=== PATIENT | male | born 1945 | race Caucasian/White ===

== ENCOUNTER → 2017-05-19 | Day surgery (SDC) | payer OTHER ==
[2017-05-11 09:15] VITALS: BMI 26.0
[~2017-05-19] VITALS: Ht 177.8 cm; Wt 81.8 kg
[~2017-05-19] MED LIST: ASPI325T39 PO; CHOL1000 PO; CYAN500T PO; GLIP-197 PO; IBUP-1050 PO; LIDOCAINE HCL 2% 2 ML VIAL (20MG/ML) ONE; LOSA50TA6 PO; MAGN250T3 PO; METF-384 PO; METO50TA16 PO; METOPROLOL TARTRATE 1 MG/ML VIAL ONE; MULT-506 PO; OYST500T47 PO; POTA99TA PO; PRLSR20 PO; PROPOFOL IV EMULSION 10 MG/ML 20 ML VIAL IV ONE; SIMV40TA2 PO; SODIUM CHLORIDE 0.9% 500ML 500 ML IV ONE; TAMS0.4C38 PO; ZINC1CAP PO; vit c PO
[2017-05-19 10:17] VITALS: Ht 177.8 cm; Wt 81.8 kg
--- NOTE | 2017-05-19 10:41 | Endo History and Physical ---
History & Physical Date of Service: May 19, 2017. Chief Complaint: Weight loss, diarrhea Referring Physician: History of Present Illness Weight loss, diarrhea Past Surgical History Hx Cardiac Surgery: Yes (HEART CATH X2, STENTS X1 OR 2(?)) Hx Internal Defibrillator: No Hx Pacemaker: No Hx Abdominal Surgery: No Hx of Implantable Prosthesis: No Hx Post-Op Nausea and Vomiting: No Hx Cancer Surgery: No Hx Thoracic Surgery: No Hx Orthopedic: Yes (LT KNEE SURGERY) Hx Urinary Tract Surgery: Yes (PROSTATE BIOPSIES) Family History None Social History Smoking Status: Current Every Day Smoker Hx Substance Use: No Hx Alcohol Use: Yes (QUIT 15 YEARS AGO) Allergies Coded Allergies: No Known Allergies (Verified , 05/19/17) Current Medications Reported Home Medications Medications Dose Route/Sig Max Daily Dose Days Date Category [vit c] 250 PO 5XWK 05/19/17 Reported Zinc Sulfate 220 Mg Cap 220 Mg PO 2XWK 05/11/17 Reported Potassium 99 Mg Tab 1 Tab PO 2XWK 05/11/17 Reported Vitamin B-12 (Cyanocobalamin) 500 Mcg Tab 500 Mcg PO 2XWK 05/11/17 Reported Calcium (Oyster Shell) 500 Mg Tab 1 Tab PO 2XWK 05/11/17 Reported Advil (Ibuprofen) 200 Mg Tab 400-600 Mg PO Q6H PRN 05/11/17 Reported Magnesium 250 mg (Magnesium) 1 Tab Tab 1 Tab PO QAM 05/11/17 Reported Multivitamin (Multivitamins) Tab 1 Tab PO QAM 05/11/17 Reported Zocor (Simvastatin) 40 Mg Tab 0.5 Tab PO HS 05/11/17 Reported Flomax (Tamsulosin Hcl) 0.4 Mg Cap 0.4 Mg PO QAM 05/11/17 Reported Glipizide Er (Glipizide) 5 Mg Tab 0.5 Tab PO QPM 05/11/17 Reported Prilosec (Omeprazole) 20 Mg Capcr 20 Mg PO QPM 05/11/17 Reported Vitamin D3 (Cholecalciferol) 1,000 Unit Tab 1 Tab PO QAM 05/11/17 Reported Aspirin Ec (Aspirin) 325 Mg Tab 325 Mg PO HS 05/11/17 Reported Lopressor (Metoprolol Tartrate) 50 Mg Tab 50 Mg PO BID 05/11/17 Reported Glucophage (Metformin Hcl) 1,000 Mg Tab 1,000 Mg PO BID 05/11/17 Reported Cozaar (Losartan Potassium) 50 Mg Tab 50 Mg PO QAM 05/11/17 Reported Vital Signs Weight (Kilograms): 81.82 Height (Feet): 5 Height (Inches): 10 Physical Exam General Appearance: no apparent distress Respiratory/Chest: Respiratory effort: no dyspnea Cardiovascular: Apical Impulse: not displaced Abdomen: Bowel Sounds: normal Assessment and Plan Diarrhea, weight loss - EGD/cscopy
[2017-05-19 11:55] VITALS: BP 112/93; PULSE 61; O2SAT 95
--- NOTE | 2017-05-19 11:55 | GI REPORT ---
Procedure Date: 05/19/2017 10:55 AM Procedure: Upper GI endoscopy Indications: Weight loss Medicines: See the Anesthesia note for documentation of the administered medications Complications: No immediate complications. Estimated Blood Loss: Estimated blood loss: none. Procedure: Pre-Anesthesia Assessment: - ASA Grade Assessment: III - A patient with severe systemic disease. After obtaining informed consent, the endoscope was passed under direct vision. Throughout the procedure, the patient's blood pressure, pulse, and oxygen saturations were monitored continuously. The scope was introduced through the mouth, and advanced to the second part of duodenum. The upper GI endoscopy was accomplished without difficulty. The patient tolerated the procedure well. Findings: Tortuous esophagus with mildly irregular Z ilne. The GE junction was at 40 cm. There was mild edema of the mucosa of the body and cardia of the stomach. In the correct context, the appearance may be consistent with portal gastropathy. There were a few red spots in the antrum and in the duodenal bulb. 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 There was mild scalloping of the duodenal mucosa. Biopsies were taken with a cold forceps in the entire examined stomach and in the entire duodenum for histology. 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 Recommendation: - Await pathology results. - Discharge patient to home. David Reyes M.D. David Reyes MD 05/19/2017 11:55:09 AM This report has been signed electronically. Note Initiated On: 05/19/2017 10:55 AM I attest to the content of the Intraoperative Record and orders documented therein, exceptions below
--- NOTE | 2017-05-19 12:01 | GI REPORT ---
Procedure Date: 05/19/2017 10:54 AM Procedure: Colonoscopy Indications: Clinically significant diarrhea of unexplained origin, Weight loss Medicines: See the Anesthesia note for documentation of the administered medications Complications: No immediate complications. Estimated Blood Loss: Estimated blood loss: none. Procedure: Pre-Anesthesia Assessment: - ASA Grade Assessment: III - A patient with severe systemic disease. After I obtained informed consent, the scope was passed under direct vision. Throughout the procedure, the patient's blood pressure, pulse, and oxygen saturations were monitored continuously. The scope was introduced through the anus and advanced to the terminal ileum. The colonoscopy was performed without difficulty. The patient tolerated the procedure well. The quality of the bowel preparation was good. Findings: The perianal and digital rectal examinations were normal. Multiple small and large-mouthed diverticula were found in the entire colon. A 1 mm polyp was found in the ascending colon. The polyp was sessile. The polyp was removed with a cold biopsy forceps. Resection and retrieval were complete. A 5 mm polyp was found in the ascending colon. The polyp was sessile. The polyp was removed with a cold snare. Resection and retrieval were complete. Hemorrhoids on retroflexion. The exam was otherwise normal throughout the examined colon. Biopsies for histology were taken with a cold forceps from the entire colon for evaluation of microscopic colitis. Impression: - Diverticulosis in the entire examined colon. - One 1 mm polyp in the ascending colon, removed with a cold biopsy forceps. Resected and retrieved. - One 5 mm polyp in the ascending colon, removed with a cold snare. Resected and retrieved. - Biopsies were taken with a cold forceps from the entire colon for evaluation of microscopic colitis. Recommendation: - Discharge patient to home. David Reyes M.D. David Reyes MD 05/19/2017 12:00:56 PM This report has been signed electronically. Note Initiated On: 05/19/2017 10:54 AM I attest to the content of the Intraoperative Record and orders documented therein, exceptions below
--- NOTE | 2017-05-19 12:02 | Anesthesiology Progress Note ---
Anesthesia Post Op Note Date & Time May 19, 2017 at 12:02 Vital Signs Pain Intensity: 0 Vital Signs Past 12 Hours Date Time Temp Pulse Resp B/P (MAP) Pulse Ox O2 Delivery O2 Flow Rate FiO2 05/19/17 11:42 66 18 127/72 (90) 96 Room Air 05/19/17 10:49 36.6 67 20 139/89 (106) 97 Room Air Notes Mental Status: alert / awake / arousable, participated in evaluation Pt Amnestic to Procedure: Yes Nausea / Vomiting: adequately controlled Pain: adequately controlled Airway Patency, RR, SpO2: stable & adequate BP & HR: stable & adequate Hydration State: stable & adequate Anesthetic Complications: no major complications apparent
--- NOTE | 2017-05-19 12:38 | Discharge Instructions ---
Endoscopy Patient Instructions Date / Procedure(s) Performed May 19, 2017. Colonoscopy, EGD Allergy Information Coded Allergies: No Known Allergies (Verified , 05/19/17) Discharge Date / Findings May 19, 2017. Colon polyps, diverticulosis, hemorrhoids. Medication Instructions Stopped Medication(s): ASA METFORMIN Restart Stopped Medication(s): Resume today Provider Instructions Activity Restrictions - No exercising or heavy lifting for 24 hours. - Do not drink alcohol the day of the procedure. - Do not drive a car or operate machinery until the day after the procedure. - Do not make any important decisions or sign important papers in 24 hours after the procedure. Following Day: - Return to full activity which may include returning to work/school. Diet Start your diet with liquids and light foods (jello, soup, juice, toast). Then eat your usual diet if not nauseated. Treatment For Common After Affects For mild abdominal pain, bloating, or excessive gas: - Rest - Eat lightly - Lie on right side Follow-Up Information Follow-up with CHIQUIS MILLER as scheduled Anesthesia Information What You Should Know You have had a procedure that required some medicine to reduce anxiety and discomfort. This treatment is called moderate sedation. After receiving the treatment, you may be sleepy, but you will be able to breathe on your own. The effects of the treatment may last for several hours. Follow these instructions along with Activity/Diet recommendations noted above: * Do NOT do anything where dizziness or clumsiness would be dangerous. * Rest quietly at home today, then you can be up and about tomorrow. * Have a responsible person stay with you the rest of today. * You may have had an I.V. today. If so, you may take the dressing off later today. Recommendations Call your doctor if: * Trouble breathing * Continuous vomiting for more than 24 hours * Temperature above 101 degrees * Severe abdominal pain or bloating * Pain not relieved by pain medicine ordered * There is increased drainage or redness from any incision * A large amount of rectal bleeding greater than 2-3 tablespoons. (If you had a polyp/s removed or have hemorrhoids, a small amount of blood - from the rectum is to be expected.) * You have any unanswered questions or concerns. IN THE EVENT OF A SERIOUS EMERGENCY, GO TO THE NEAREST EMERGENCY ROOM Your discharge instructions were prepared by provider David Donnelly. Patient Instructions Signature Page Malcolm [place] Patient (or Guardian) Signature/Date: I have read and understand the instructions given to me by my caregivers. Caregiver/RN/Doctor Signature/Date: The above-named patient and/or guardian has received patient instructions on this date. + Original Patient Signature Page (only) stays with chart. Please make copy for patient.
== END | disposition home or self-care (01) ==
LOC: C.GI 09:51
PROVIDERS: ATTEND Internal Medicine Gastroenterology
DX: D12.2 Benign neoplasm of ascending colon (principal); K57.90 Diverticulosis of intestine, part unspecified, without perforation or abscess without bleeding; K64.9 Unspecified hemorrhoids; K29.50 Unspecified chronic gastritis without bleeding; R63.4 Abnormal weight loss

== ENCOUNTER 2022-08-07 07:11 | Inpatient (IN) ==
--- NOTE | 2022-08-07 08:06 | Emergency Department Note ---
History of Present Illness General Chief complaint: Abdominal Pain Stated complaint: HERNIA POPPING OUT DUE TO CONSTIPATION Time Seen by Provider: 08/07/22 07:53 Source: patient and family (Son is at the bedside) Mode of arrival: ambulatory Limitations: no limitations History of Present Illness Maximum Pain Intensity: 8 This patient 69-year-old male comes in with a left inguinal hernia. He was seen overnight and also a couple days prior. It was gently reduced last night and popped out again he said probably constipation which is something's is causing this. He has a Loza catheter in as well. He was recently admitted when he had hyponatremia and UTI legs get better and those counts. He had had no fever chills and no vomiting. Home Medications Medication Instructions Recorded Confirmed Type omeprazole 20 mg tablet,delayed 20 mg PO QPM 07/27/22 08/07/22 History release tamsulosin 0.4 mg capsule (Flomax) 0.4 mg PO DAILY 07/27/22 08/07/22 History food supplemt, lactose-reduced 1 ea PO DAILY 07/28/22 08/07/22 History (Ensure oral liquid) nicotine (polacrilex) 4 mg buccal 4 mg buccal DIRECTED PRN 07/28/22 08/07/22 History lozenge SMOKING SESSATION nitroglycerin 0.3 mg sublingual 0.3 mg sublingual DIRECTED PRN 07/28/22 08/07/22 History tablet (Nitrostat) Chest Pain simvastatin 40 mg tablet 20 mg PO HS 07/28/22 08/07/22 History sodium chloride 1 gram tablet 1 g PO TID #90 tabs 07/31/22 08/07/22 Rx cephalexin 500 mg capsule 500 mg PO BID 08/04/22 08/07/22 History Saccharomyces boulardii 250 mg 250 mg PO BID #20 caps 08/05/22 08/07/22 Rx capsule (Florastor) cefdinir 300 mg capsule 300 mg PO BID 10 days #20 caps 08/05/22 08/07/22 Rx lactulose 20 gram/30 mL oral 20 g (30 mL) PO DAILY PRN 08/05/22 08/07/22 Rx solution constipation #1,200 mL Allergies Allergy/AdvReac Type Severity Reaction Status Date / Time No Known Allergies Allergy Verified 08/07/22 08:38 Past Med/Surg History Medical History 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 Diabetes mellitus GERD (gastroesophageal reflux disease) Hyperlipidemia LDL goal <70 Hypertension Iliac artery aneurysm, bilateral Surgical History No pertinent past surgical history Family History Other Coronary heart disease Stroke Social History Smoking Status: Current every day smoker Tobacco Type: Cigarettes Cigarettes Per Day: 15-20; Hx Alcohol Use: No Hx Substance Use: No Preferred Language: Lao Communication Ability: Effective 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 Beliefs That Will Affect Care: None Current Living Situation: Family Current Living Situation Comment: Lives with son Feels Safe at Home: Yes Assistive Devices: Cane and Walker Review of Systems A total of 10 systems reviewed and were otherwise negative Physical Exam Vital Signs Vital Signs - 24 hr 08/07/22 07:17 08/07/22 08:35 Temperature 36.3 C L Temperature Source Temporal Artery Scan Pulse Rate 78 Pulse Rate [Finger] 66 Respiratory Rate 20 18 Respiratory Effort / Characteristics Non-Labored Respiratory Depth Normal Blood Pressure 110/65 Blood Pressure [Left Arm] 139/83 Blood Pressure Mean 80 Blood Pressure Mean [Left Arm] 101 Pulse Oximetry 99 98 Oxygen Delivery Method Room Air Room Air Sepsis Recent Fever Within 48 Hours No Sepsis New/Unexplained Change in Mental Status N/A Sepsis Action Taken by Nursing No Action Required General: Well developed well nourished older male who appears in no acute distress, breathing comfortably on room air. Normal speech HEENT: Normal cephalic atraumatic. Pupils are equal round and reactive to light. Extraocular movements are intact. Oropharynx is pink with moist mucous membranes. No swelling of the mouth lips or tongue. Neck: Supple with a midline trachea. No meningeal signs or stiffness, no JVD or bruits. No Stridor. Chest: Clear to auscultation bilaterally. No wheezes or rhonchi. No increased work of breathing. Heart: Regular rate and rhythm without murmurs or gallops. Abdomen: Soft nontender, nondistended without rebound guarding or rigidity.. There is a moderate size inguinal hernia on the left groin. It is not red or warm it is tender with gentle pressure its not easily reducible. There is a Loza catheter in place with clear yellow Extremities: No cyanosis clubbing or edema. No calf tenderness or assymetry Spine/Back. Non tender to palpation. No CVA tenderness Skin: Good turgor without rashes. Neurologic exam: Cranial nerves two through 12 are intact. Motor and sensation are intact and symmetrical throughout. Course Administered Medications Sodium Chloride (Nss 1000ml) 1,000 mls @ 80 mls/hr IV .[id number] CARLITOS Stop: 09/06/22 11:51 Last Admin: 08/07/22 14:47 Dose: 80 mls/hr Documented By: BURKE Pantoprazole Sodium 40 mg/ (Syringe) 10 mls @ 5 mls/min IV DAILY@1100 [facility] Stop: 09/06/22 12:14 Last Admin: 08/07/22 14:49 Dose: 5 mls/min Documented By: BURKE Discontinued Medications Bisacodyl (Bisacodyl 10 Mg Supp) 10 mg ND NOW STA Stop: 08/07/22 09:56 Last Admin: 08/07/22 10:35 Dose: 10 mg Documented By: GELY Bupivacaine HCl (Bupivacaine 0.5 % 5 Mg/1 Ml Mpf 30ml Vial) Confirm Administered Dose 30 ml .ROUTE .STK-MED ONE Stop: 08/07/22 12:42 Last Admin: 08/07/22 13:26 Dose: 25 ml Documented By: Katharine Cefazolin Sodium (Cefazolin 330 Mg/Ml 1 Gm Vial) Confirm Administered Dose 990 mg .ROUTE .STK-MED ONE Stop: 08/07/22 12:52 Last Admin: 08/07/22 13:27 Dose: 990 mg Documented By: NORMA Sodium Chloride (Nss 1000ml) 500 mls @ 999 mls/hr IV .Q31M ONE Stop: 08/07/22 09:02 Last Infusion: 08/07/22 09:03 Dose: 0 mls/hr Documented By: Admin: 08/07/22 08:36 Dose: 999 mls/hr Documented By: GELY Sodium Chloride (Nss) 500 mls @ 125 mls/hr IV .Q4H CARLITOS Stop: 09/06/22 08:44 Last Infusion: 08/07/22 12:12 Dose: 0 mls/hr Documented By: Admin: 08/07/22 09:03 Dose: 125 mls/hr Documented By: GELY Cefoxitin Sodium 2,000 mg/ (Dextrose) 60 mls @ 100 mls/hr IV ONCE ONE Stop: 08/07/22 13:32 Last Infusion: 08/07/22 14:26 Dose: 0 mls/hr Documented By: Admin: 08/07/22 12:45 Dose: 100 mls/hr Documented By: ANA MARIA Acetaminophen (Ofirmev) 1,000 mg in 100 mls @ 400 mls/hr IV NOW ONE Stop: 08/07/22 13:45 Last Admin: 08/07/22 14:25 Dose: Not Given Documented By: BURKE Medical Decision Making Differential Diagnosis Hernia, constipation, electrolyte or metabolic [place], infection Medical Records Attestation: I reviewed the patient's medical records. Home Medications Current Medication List: was personally reviewed by me Laboratory Data Attestation: I reviewed the patient's lab results. Result diagrams: 08/07/22 07:50 08/07/22 07:50 Lab Results 08/07/22 08/07/22 08/07/22 Range/Units 07:50 07:50 07:50 WBC 7.67 (4.8-10.8) K/ul RBC 4.95 (4.63-6.08) M/uL Hgb 15.9 (14.0-18.0) g/dl Hct 46.3 (40.1-51.0) % MCV 93.5 (80.0-100.0) fL MCH 32.1 (25.0-34.0) pg MCHC 34.3 (32.0-36.0) g/dL RDW Std Deviation 46.0 (36.4-46.3) fL RDW Coeff of [place]ria 13.5 (11.5-14.5) % Plt Count 209 (130-400) K/uL MPV 9.6 (9.4-12.4) fL Immature Gran % (Auto) 0.3 % Neut % (Auto) 76.1 % Lymph % (Auto) 15.0 % [place] % (Auto) 7.4 % Eos % (Auto) 0.7 % Baso % (Auto) 0.5 % Neut # (Auto) 5.84 (1.4-6.5) K/uL Lymph # (Auto) 1.15 L (1.2-3.4) K/uL [place] # (Auto) 0.57 (0.24-0.82) K/uL Eos # (Auto) 0.05 (0-0.50) K/uL Baso # (Auto) 0.04 (0-0.2) K/uL Immature Gran # (Auto) 0.02 (0.00-0.02) K/uL PT 10.6 (9.0-12.0) Seconds INR 1.0 (0.9-1.1) APTT 28.4 (21.0-31.0) Seconds PTT Ratio 1.0 Sodium 135 L (136-145) mmol/L Potassium 4.0 (3.5-5.1) mmol/L Chloride 100 (98-107) mmol/L Carbon Dioxide 30 (21-32) mmol/L Anion Gap 5 (3-11) BUN 12 (6-23) mg/dl Creatinine 0.57 L (0.6-1.4) mg/dl Est Cr Clr Drug Dosing 101.5 ml/min Est GFR ( Amer) 114.0 ml/min Est GFR (Non-Af Amer) 98.4 ml/min BUN/Creatinine Ratio 21.1 H (10-20) Glucose 122 H (70-99(Fasting)) mg/dl Calcium 9.1 (8.5-10.1) mg/dl Magnesium (1.7-2.4) mg/dl Total Bilirubin 0.6 (0.2-1.0) mg/dl AST 13 (13-39) U/L ALT 11 (7-52) U/L Alkaline Phosphatase 57 (34-104) U/L Troponin I High Sens (0-20) pg/ml Total Protein 6.4 (6.0-8.3) gm/dl Albumin 3.8 (3.4-5.0) gm/dl Globulin 2.6 (2.5-4.0) gm/dl Albumin/Globulin Ratio 1.5 (0.9-2) Lipase 27 (11-82) U/L Vitamin B12 (180-914) pg/ml TSH (0.300-4.500) uIu/ml Urine Color Urine Appearance (Clear) Urine pH (4.5-7.5) Ur Specific [place] (1.000-1.030) Urine Protein (Negative) Urine Glucose (UA) (Negative) Urine Ketones (Negative) Urine Blood (Negative) Urine Nitrite (Negative) Urine Bilirubin (Negative) Urine Urobilinogen (Negative) Ur Leukocyte Esterase (Negative) Urine WBC (Auto) (0-5) /hpf Urine RBC (Auto) (0-4) /hpf U Hyaline Cast (Auto) (0-5) /lpf U Epithel Cells (Auto) (0-5) /lpf Urine Bacteria (Auto) (Negative) SARS-CoV-2, RNA, NAAT (NEGATIVE) 08/07/22 08/07/22 08/07/22 Range/Units 07:50 07:50 07:50 WBC (4.8-10.8) K/ul RBC (4.63-6.08) M/uL Hgb (14.0-18.0) g/dl Hct (40.1-51.0) % MCV (80.0-100.0) fL MCH (25.0-34.0) pg MCHC (32.0-36.0) g/dL RDW Std Deviation (36.4-46.3) fL RDW Coeff of Andria (11.5-14.5) % Plt Count (130-400) K/uL MPV (9.4-12.4) fL Immature Gran % (Auto) % Neut % (Auto) % Lymph % (Auto) % [place] % (Auto) % Eos % (Auto) % Baso % (Auto) % Neut # (Auto) (1.4-6.5) K/uL Lymph # (Auto) (1.2-3.4) K/uL [place] # (Auto) (0.24-0.82) K/uL Eos # (Auto) (0-0.50) K/uL Baso # (Auto) (0-0.2) K/uL Immature Gran # (Auto) (0.00-0.02) K/uL PT (9.0-12.0) Seconds INR (0.9-1.1) APTT (21.0-31.0) Seconds PTT Ratio Sodium (136-145) mmol/L Potassium (3.5-5.1) mmol/L Chloride (98-107) mmol/L Carbon Dioxide (21-32) mmol/L Anion Gap (3-11) BUN (6-23) mg/dl Creatinine (0.6-1.4) mg/dl Est Cr Clr Drug Dosing ml/min Est GFR ( Amer) ml/min Est GFR (Non-Af Amer) ml/min BUN/Creatinine Ratio (10-20) Glucose (70-99(Fasting)) mg/dl Calcium (8.5-10.1) mg/dl Magnesium 1.9 (1.7-2.4) mg/dl Total Bilirubin (0.2-1.0) mg/dl AST (13-39) U/L ALT (7-52) U/L Alkaline Phosphatase (34-104) U/L Troponin I High Sens (0-20) pg/ml Total Protein (6.0-8.3) gm/dl Albumin (3.4-5.0) gm/dl Globulin (2.5-4.0) gm/dl Albumin/Globulin Ratio (0.9-2) Lipase (11-82) U/L Vitamin B12 782 (180-914) pg/ml TSH 4.060 (0.300-4.500) uIu/ml Urine Color Urine Appearance (Clear) Urine pH (4.5-7.5) Ur Specific [place] (1.000-1.030) Urine Protein (Negative) Urine Glucose (UA) (Negative) Urine Ketones (Negative) Urine Blood (Negative) Urine Nitrite (Negative) Urine Bilirubin (Negative) Urine Urobilinogen (Negative) Ur Leukocyte Esterase (Negative) Urine WBC (Auto) (0-5) /hpf Urine RBC (Auto) (0-4) /hpf U Hyaline Cast (Auto) (0-5) /lpf U Epithel Cells (Auto) (0-5) /lpf Urine Bacteria (Auto) (Negative) SARS-CoV-2, RNA, NAAT (NEGATIVE) 08/07/22 08/07/22 08/07/22 Range/Units 07:50 07:53 10:05 WBC (4.8-10.8) K/ul RBC (4.63-6.08) M/uL Hgb (14.0-18.0) g/dl Hct (40.1-51.0) % MCV (80.0-100.0) fL MCH (25.0-34.0) pg MCHC (32.0-36.0) g/dL RDW Std Deviation (36.4-46.3) fL RDW Coeff of Andria (11.5-14.5) % Plt Count (130-400) K/uL MPV (9.4-12.4) fL Immature Gran % (Auto) % Neut % (Auto) % Lymph % (Auto) % [place] % (Auto) % Eos % (Auto) % Baso % (Auto) % Neut # (Auto) (1.4-6.5) K/uL Lymph # (Auto) (1.2-3.4) K/uL [place] # (Auto) (0.24-0.82) K/uL Eos # (Auto) (0-0.50) K/uL Baso # (Auto) (0-0.2) K/uL Immature Gran # (Auto) (0.00-0.02) K/uL PT (9.0-12.0) Seconds INR (0.9-1.1) APTT (21.0-31.0) Seconds PTT Ratio Sodium (136-145) mmol/L Potassium (3.5-5.1) mmol/L Chloride (98-107) mmol/L Carbon Dioxide (21-32) mmol/L Anion Gap (3-11) BUN (6-23) mg/dl Creatinine (0.6-1.4) mg/dl Est Cr Clr Drug Dosing ml/min Est GFR ( Amer) ml/min Est GFR (Non-Af Amer) ml/min BUN/Creatinine Ratio (10-20) Glucose (70-99(Fasting)) mg/dl Calcium (8.5-10.1) mg/dl Magnesium (1.7-2.4) mg/dl Total Bilirubin (0.2-1.0) mg/dl AST (13-39) U/L ALT (7-52) U/L Alkaline Phosphatase (34-104) U/L Troponin I High Sens 16.4 D (0-20) pg/ml Total Protein (6.0-8.3) gm/dl Albumin (3.4-5.0) gm/dl Globulin (2.5-4.0) gm/dl Albumin/Globulin Ratio (0.9-2) Lipase (11-82) U/L Vitamin B12 (180-914) pg/ml TSH (0.300-4.500) uIu/ml Urine Color Yellow Urine Appearance Turbid A (Clear) Urine pH 8.0 H (4.5-7.5) Ur Specific [place] 1.017 (1.000-1.030) Urine Protein Trace H (Negative) Urine Glucose (UA) Negative (Negative) Urine Ketones Trace H (Negative) Urine Blood Negative (Negative) Urine Nitrite Negative (Negative) Urine Bilirubin Negative (Negative) Urine Urobilinogen Negative (Negative) Ur Leukocyte Esterase Negative (Negative) Urine WBC (Auto) 1-5 (0-5) /hpf Urine RBC (Auto) 5-10 H (0-4) /hpf U Hyaline Cast (Auto) 0 (0-5) /lpf U Epithel Cells (Auto) 0-5 (0-5) /lpf Urine Bacteria (Auto) Negative (Negative) SARS-CoV-2, RNA, NAAT NEGATIVE (NEGATIVE) ECG Data Attestation: I personally reviewed and interpreted this ECG as follows: Indication: + abdominal pain Rate (beats per minute): 79 Rhythm: + sinus rhythm ECG Intervals/blocks: + Normal QRS, + Normal QT and + Normal ND ECG [place]: + Normal ECG ST segments: + Normal ST segments ECG Findings: + Q waves (Inferior), + PVCs and + Poor R wave progression Comparison ECG Date: from (08/04/22) Change: no significant change MDM Narrative This patient comes in as scribed above he has recurrent hernia. It is causing him some discomfort and was not easily reducible. IV access established and blood work was obtained and the consult surgery. Dr. Manuel did come down and reduce the hernia but does feel he needs to be admitted for operative repair t his is the third time is come out and caused him pain with the last couple days. Blood work was obtained. His COVID testing was negative. He has no fever or white count to suggest infection. He is electrolyte or metabolic abnormality. EKG shows some old changes but nothing acute compared to old his troponin is not elevated. I did also discussed the case with the [facility] hospitalist team who will be admitting the patient. Impression & Plan Inguinal hernia, Abdominal pain, Loza catheter in place, Constipation, COVID Discharge Plan Visit Data Chief Complaint: Abdominal Pain Stated Complaint: HERNIA POPPING OUT DUE TO CONSTIPATION ED Provider: Agusto Soto Discharge Problem: Inguinal hernia, Abdominal pain, Loza catheter in place, Constipation, COVID Patient Disposition: Admitted As Inpatient Discharge Instructions Interventions: ED Discharge Assessment Last Done: 08/07/22 11:15 : Inguinal hernia Qualifiers: Obstruction and gangrene presence: without obstruction or gangrene Laterality: unilateral Recurrence: recurrent Qualified Code(s): K40.91 - Unilateral inguinal hernia, without obstruction or gangrene, recurrent Abdominal pain Qualifiers: Abdominal location: left lower quadrant Qualified Code(s): R10.32 - Left lower quadrant pain Constipation Qualifiers: Constipation type: unspecified constipation type Qualified Code(s): K59.00 - Constipation, unspecified
[2022-08-07 08:25] LABS: Basophils # (auto) 0.04 K/uL (0-0.2); Basophils % (auto) 0.5 %; Eosinophils # (auto) 0.05 K/uL (0-0.50); Eosinophils % (auto) 0.7 %; Hematocrit (blood only) 46.3 % (40.1-51.0); Hemoglobin 15.9 g/dl (14.0-18.0); Immature Granulocytes # (auto) 0.02 K/uL (0.00-0.02); Immature Granulocytes % (auto) 0.3 %; Lymphocytes # (auto) 1.15 K/uL (1.2-3.4); Mean Corpuscular Hemoglobin 32.1 pg (25.0-34.0); Mean Corpuscular Hgb Conc 34.3 g/dL (32.0-36.0); Mean Corpuscular Volume 93.5 fL (80.0-100.0); Mean Platelet Volume 9.6 fL (9.4-12.4); Monocytes # (auto) 0.57 K/uL (0.24-0.82); Monocytes % (auto) 7.4 %; Neutrophils # (auto) 5.84 K/uL (1.4-6.5); Neutrophils % (auto) 76.1 %; Platelet Count 209 K/uL (130-400); RDW Coefficient of Variation 13.5 % (11.5-14.5); Red Blood Count 4.95 M/uL (4.63-6.08); White Blood Count 7.67 K/ul (4.8-10.8)
[2022-08-07] MEDS ORDERED: SODIUM CHLORIDE 0.9% 1000ML 500 ML IV ONE (08:32)
--- NOTE | 2022-08-07 08:38 | Surgery Consultation ---
Date of Consultation August 07, 2022 Assessment & Plan (1) Incarcerated inguinal hernia: I was able to reduce the hernia at the bedside with some discomfort to the patient It will certainly recur Best plan is to proceed with open left inguinal hernia repair We will asked the medical team to see the patient as he does have some recent acute problems Could hold off if we need to but better to proceed today Will need general anesthesia History of Present Illness History of Present Illness 77-year-old male with incarcerated left inguinal hernia Patient has been in the ER multiple times last time being last night with left inguinal hernia which was reduced and now reincarcerated Patient recently in the hospital with confusion, hyperglycemia,hyponatremia Patient lives with his son who is been having some difficulty recently with a hernia and feels it is causing significant constipation Allergies Allergy/AdvReac Type Severity Reaction Status Date / Time No Known Allergies Allergy Verified 08/07/22 08:38 Home Medications Medication Instructions Recorded Confirmed Type omeprazole 20 mg tablet,delayed 20 mg PO QPM 07/27/22 08/07/22 History release tamsulosin 0.4 mg capsule (Flomax) 0.4 mg PO DAILY 07/27/22 08/07/22 History food supplemt, lactose-reduced 1 ea PO DAILY 07/28/22 08/07/22 History (Ensure oral liquid) nicotine (polacrilex) 4 mg buccal 4 mg buccal DIRECTED PRN 07/28/22 08/07/22 History lozenge SMOKING SESSATION nitroglycerin 0.3 mg sublingual 0.3 mg sublingual DIRECTED PRN 07/28/22 08/07/22 History tablet (Nitrostat) Chest Pain simvastatin 40 mg tablet 20 mg PO HS 07/28/22 08/07/22 History sodium chloride 1 gram tablet 1 g PO TID #90 tabs 07/31/22 08/07/22 Rx cephalexin 500 mg capsule 500 mg PO BID 08/04/22 08/07/22 History Saccharomyces boulardii 250 mg 250 mg PO BID #20 caps 08/05/22 08/07/22 Rx capsule (Florastor) cefdinir 300 mg capsule 300 mg PO BID 10 days #20 caps 08/05/22 08/07/22 Rx lactulose 20 gram/30 mL oral 20 g (30 mL) PO DAILY PRN 11/04/22 11/06/22 Rx solution constipation #1,200 mL Patient History Medical History BPH loc w urin obs/LUTS Diabetes mellitus GERD (gastroesophageal reflux disease) Hyperlipidemia LDL goal <70 Hypertension Surgical History No pertinent past surgical history Social History Smoking Status: Current every day smoker Tobacco Type: Cigarettes Cigarettes Per Day: 15-20; Hx Alcohol Use: No Hx Substance Use: No Preferred Language: Guyanese Communication Ability: Effective Manager Material Required: No Beliefs That Will Affect Care: None Current Living Situation: Family Current Living Situation Comment: Lives with son Feels Safe at Home: Yes Assistive Devices: Cane and Walker Review of Systems Review of Systems: All systems reviewed & are unremarkable except as noted in HPI & below Physical Exam Physical Exam: Patient has a large left inguinal hernia which is incarcerated however I was able to reduce it Causing some discomfort to the patient Constitutional: no acute distress Eyes: + anicteric sclerae Respiratory: normal respiratory effort; no respiratory distress Cardiovascular: Rate/Rhythm: regular rate Gastrointestinal (Abdomen): Inspection/Auscultation: abdomen not distended Musculoskeletal: Head/Neck/Chest: head atraumatic Skin: no rashes, warm and dry Neurologic: awake Psychiatric: Orientation: alert Results & Data ([facility]) Vital Signs (Past 12 Hours) Vital Signs Temp Pulse Resp BP Pulse Ox O2 Del Method 08/07/22 07:17 36.3 C L 78 20 110/65 99 Room Air PG Care Time/CCT Total # of Minutes Spent Total Time Spent with Patient: Total time spent is greater than 50% in coordination of care (as documented) at patient's floor/unit and/or counseling patient: Coding Level of Care Code 35443 Office/Outpt Visit, New Diagnoses Incarcerated inguinal hernia K40.30
[2022-08-07 08:42] LABS: Albumin Globulin Ratio 1.5 (0.9-2); Albumin Level 3.8 gm/dl (3.4-5.0); BUN Creatinine Ratio 21.1 (10-20); Bilirubin,Total 0.6 mg/dl (0.2-1.0); Calcium 9.1 mg/dl (8.5-10.1); Creatinine Clr Calc Pharmacy 101.5 ml/min; Est GFR (Non-African American) 98.4 ml/min; Globulin 2.6 gm/dl (2.5-4.0); Total Protein 6.4 gm/dl (6.0-8.3)
[2022-08-07] MEDS ORDERED: SODIUM CHLORIDE 0.9% 500 ML IV SCH (08:45)
[2022-08-07 08:46] LABS: Partial Thromboplastin Time 28.4 Seconds (21.0-31.0); Prothrombin Time 10.6 Seconds (9.0-12.0)
[2022-08-07] MEDS ORDERED: fentaNYL citrate 100 MCG/2 ML VIAL ONE ×2 (09:41)
[2022-08-07] MEDS ORDERED: MIDAZOLAM HCL 1 MG/ML 2ML VIAL ONE (09:41)
--- NOTE | 2022-08-07 09:47 | History & Physical Report ---
Date of Service August 07, 2022 Assessment & Plan (1) Incarcerated inguinal hernia: Plan: PMHx significant for SIADH, HTN, HLD, pre-DM, GERD, BPH, b/l iliac artery aneurysm, constipation. Prior reduction 08/04-08/05 in ER, then again in AM overnight and discharged home but came right back and presented with recurrent LEFT inguinal hernia incarceration, Reduced this morning in ER by Dr Manuel and plans for surgery today. Admit med/surg IVF NS @ 80cc/hr while NPO Check Mag/TSH given constipation issues at baseline -- takes lactulose daily since last admission as well as prior hyponatremia thought to be due to SIADH (CT chest 2020 no acute findings/suspicious pulmonary nodules in patient with hx smoking) Keep K~4, Mag ~2 Check CXR/KUB pre-op to eval for stool burden/diminished in the bases NPO for OR with Dr Manuel Pain control/antiemetics prn Would need aggressive bowel regimen post-op, rec miralax/senna/docusate and would discontinue lactulose. Will check EKG - pre-op, none done since 08/04 --> Q waves interiorly, consistent with old HI -- see below No angina, can walk a city block without problems. Cannot go up and down flight of stairs due to RLE weakness that is chronic Surgical cardiac risk moderate for hernia repair. Ok to proceed with surgery, stable currently from cardiovascular standpoint give recurrence of hernia/risks CBC, BMP, Mag in AM (2) CAD in [place] artery: Plan: with a h/o HI approx age 50-review of old records here from 2000 show sustained an acute inferior wall HI in [facility], was ill for 2days with CP/SOB/N/V and not sought medical help while he was in [facility]. Strong family hx of CAD (mother at 63) with HI and sister around 72 at that time had first HI when she was in mid 60s. [facility] but discontinued last admission for bruising Had two stents, no card Not on BB, on nitro prn Rec to resume ASA 81mg post-operatively. Denies any hx GI bleeding. Did have some RBC on prior UA/easy bruising, however given HX CAD, important to continue at least daily ASA Not having any active angina/SOB EKG w/ CP -continue statin (3) Acute abdominal pain: Plan: resolved since reduction of inguinal hernia KUB pending for eval constipation (4) Inguinal hernia recurrent unilateral: Plan: LEFT sided plans for repair as above (5) Hyponatremia: Plan: Na improved from prior, thought to be SIADH last admission but seems more consistent with hypovolemia from poor po intake due to constipation and pain Ur Osm last admission high but no Ur Na+ performed Improved now to 135 He appears hypovolemic, urine concentrated ketones in UA, constipated Holding further NaCL tablets, check urine Na/osm studies -start NS at 80mL/hr (6) Constipation: Plan: reported issues at baseline, hard balls of stools at times at home On lactulose daily 20mg -- held Bisacodyl Suppository x 1 Rec miralax/senna/docusate following surgery (7) Fecal retention: Plan: on prior image 08/04 post-L inguinal hernia reduction -- noted moderate/extensive colonic fecal retention (8) Iliac artery aneurysm, bilateral: Plan: noted on prior imaging ?consider ASA 81mg daily at d/c and can arrange vascular f/u outpatient continue statin (9) GERD (gastroesophageal reflux disease): Plan: place on protonix IV while NPO, continue PO once able post-op (10) Hyperlipidemia LDL goal <70: Plan: continue statin (11) BPH loc w urin obs/LUTS: Plan: with rose since last admission repeat UA ordered -- no abx for now prior urine cx without growth -will need voiding trial/consult w/ urology vs exchange in 1 month --> ok to hold flomax/continue rose. monitor output (12) Hypertension: Plan: noted hx but not on medications (13) Diabetes mellitus: Plan: hx of such listed, last A1c only 5.9 monitor BSG AC/HS Plan DVT prophylaxis-SCDs Dispo-Will need PT/OT consults following surgery, likely either short term inpatient rehab given issues/falls at home prior (no LOC/head trauma reported) CT head 07/27 negative. History of Present Illness Chief Complaint: Inguinal Hernia Primary Care Provider: Jannie Harris PA-C 77yo male presented to ER x 2 for reduction of LEFT inguinal hernia. PMHx significant for SIADH, HTN, HLD, pre-DM, GERD, BPH, b/l iliac artery aneurysm, constipation. Reduced this morning by Dr Manuel but planning for surgery for correction given likelihood of reoccurrence. Son and DIL in room, state has had Rose since discharge last admission around 07/21. Urine is clearing up, had been changed from one cephalosporin to another (was on cefdinir, then cephalexin recently) Discussed constipation, ongoing issue. Using daily lactulose at home but son notes as they live together and he's been crossing paths more since d/c that his father had been increasingly weak/balance issues. Did have fall or two at home, no striking of head noted. He did note chronic constipation issues, recently almost disimpacting himself when wiping and had a stool ball the size of a baseball. Discussed suppository x 1 and will encourage miralax/senna/docusate for softening/stimulant effect rather than lactulose w/ increased distention. No fevers/chills at home. Did report decreased PO intake due to abdominal pain. No vomiting. Discussed OR today, then will give diet/monitor bowels. Will also request PT/OT consultations to see if any assistance with HH/PT vs inpatient rehab as son dose note it has been a lot at home and he is at the end of his rope. Checking B12 for dementia/balance issues, TSH for constipation/confusion and hyponatremia. They have been giving him NaCl tablets twice daily since d/c last admission. Full Code per discussion with patient/family. Allergies Allergy/AdvReac Type Severity Reaction Status Date / Time No Known Allergies Allergy Verified 08/07/22 08:38 Home Medications Medication Instructions Recorded Confirmed Type omeprazole 20 mg tablet,delayed 20 mg PO QPM 07/27/22 08/07/22 History release tamsulosin 0.4 mg capsule (Flomax) 0.4 mg PO DAILY 07/27/22 08/07/22 History food supplemt, lactose-reduced 1 ea PO DAILY 07/28/22 08/07/22 History (Ensure oral liquid) nicotine (polacrilex) 4 mg buccal 4 mg buccal DIRECTED PRN 07/28/22 08/07/22 History lozenge SMOKING SESSATION nitroglycerin 0.3 mg sublingual 0.3 mg sublingual DIRECTED PRN 07/28/22 08/07/22 History tablet (Nitrostat) Chest Pain simvastatin 40 mg tablet 20 mg PO HS 07/28/22 08/07/22 History sodium chloride 1 gram tablet 1 g PO TID #90 tabs 07/31/22 08/07/22 Rx cephalexin 500 mg capsule 500 mg PO BID 08/04/22 08/07/22 History Saccharomyces boulardii 250 mg 250 mg PO BID #20 caps 08/05/22 08/07/22 Rx capsule (Florastor) cefdinir 300 mg capsule 300 mg PO BID 10 days #20 caps 08/05/22 08/07/22 Rx lactulose 20 gram/30 mL oral 20 g (30 mL) PO DAILY PRN 08/05/22 08/07/22 Rx solution constipation #1,200 mL Past Med/Surg History Medical History BPH loc w urin obs/LUTS CAD in [place] artery Diabetes mellitus GERD (gastroesophageal reflux disease) Hyperlipidemia LDL goal <70 Hypertension Iliac artery aneurysm, bilateral Surgical History No pertinent past surgical history Family History (Updated 08/07/22 @ 12:17 by Tisha Glover MD) Other Coronary heart disease Stroke Social History Smoking Status: Current every day smoker Tobacco Type: Cigarettes Cigarettes Per Day: 15-20; Hx Alcohol Use: No Hx Substance Use: No Preferred Language: Thai Communication Ability: Effective Rental Sales Representative Required: No Beliefs That Will Affect Care: None Current Living Situation: Family Current Living Situation Comment: Lives with son Feels Safe at Home: Yes Assistive Devices: Cane and Walker Review of Systems Review of Systems: All systems reviewed & are unremarkable except as noted in HPI & below Physical Exam Physical Exam: General: WD/frail elderly male laying flat in bed, NAD, family at bedside HEENT: head normocephalic, thinning hair, Resp: CTA, diminished in the bases, no w/c, on room air CV: RRR, no m/r/g, no pitting edema/calf tenderness GI: +BS, slight distention, palpable stool in colon, nontender, no rebound/guarding, LIH reduced : rose draining turbid/concentrated urine MSK/Neuro: moves all extremities, no focal deficit/slurred speech, CN intact grossly Skin: dry, cool, flaky Psych: alert, oriented to person/knows in hospital, unclear on year, baseline dementia at times, cooperative/pleasant Results & Data Results & Data ([facility]) Vital Signs (Past 12 Hours) Vital Signs Temp Pulse Pulse Resp BP BP Pulse Ox 08/07/22 08:35 66 18 139/83 98 08/07/22 07:17 36.3 C L 78 20 110/65 99 O2 Del Method 08/07/22 08:35 Room Air 08/07/22 07:17 Room Air Laboratory Results 08/07/22 08/07/22 08/07/22 Range/Units 10:05 07:53 07:50 WBC (4.8-10.8) K/ul RBC (4.63-6.08) M/uL Hgb (14.0-18.0) g/dl Hct (40.1-51.0) % MCV (80.0-100.0) fL MCH (25.0-34.0) pg MCHC (32.0-36.0) g/dL RDW Std Deviation (36.4-46.3) fL RDW Coeff of [place] (11.5-14.5) % Plt Count (130-400) K/uL MPV (9.4-12.4) fL Immature Gran % (Auto) % Neut % (Auto) % Lymph % (Auto) % [place] % (Auto) % Eos % (Auto) % Baso % (Auto) % Neut # (Auto) (1.4-6.5) K/uL Lymph # (Auto) (1.2-3.4) K/uL [place] # (Auto) (0.24-0.82) K/uL Eos # (Auto) (0-0.50) K/uL Baso # (Auto) (0-0.2) K/uL Immature Gran # (Auto) (0.00-0.02) K/uL PT (9.0-12.0) Seconds INR (0.9-1.1) APTT (21.0-31.0) Seconds PTT Ratio Sodium (136-145) mmol/L Potassium (3.5-5.1) mmol/L Chloride (98-107) mmol/L Carbon Dioxide (21-32) mmol/L Anion Gap (3-11) BUN (6-23) mg/dl Creatinine (0.6-1.4) mg/dl Est Cr Clr Drug Dosing ml/min Est GFR ( Amer) ml/min Est GFR (Non-Af Amer) ml/min BUN/Creatinine Ratio (10-20) Glucose (70-99(Fasting)) mg/dl Calcium (8.5-10.1) mg/dl Magnesium Total Bilirubin (0.2-1.0) mg/dl AST (13-39) U/L ALT (7-52) U/L Alkaline Phosphatase (34-104) U/L Total Protein (6.0-8.3) gm/dl Albumin (3.4-5.0) gm/dl Globulin (2.5-4.0) gm/dl Albumin/Globulin Ratio (0.9-2) Lipase (11-82) U/L Vitamin B12 TSH Pending Urine Color Pending Urine Appearance Pending Urine pH Pending Ur Specific [place] Pending Urine Protein Pending Urine Glucose (UA) Pending Urine Ketones Pending Urine Blood Pending Urine Nitrite Pending Urine Bilirubin Pending Urine Urobilinogen Pending Ur Leukocyte Esterase Pending SARS-CoV-2, RNA, NAAT NEGATIVE (NEGATIVE) 08/07/22 08/07/22 08/07/22 Range/Units 07:50 07:50 07:50 WBC (4.8-10.8) K/ul RBC (4.63-6.08) M/uL Hgb (14.0-18.0) g/dl Hct (40.1-51.0) % MCV (80.0-100.0) fL MCH (25.0-34.0) pg MCHC (32.0-36.0) g/dL RDW Std Deviation (36.4-46.3) fL RDW Coeff of [place]ria (11.5-14.5) % Plt Count (130-400) K/uL MPV (9.4-12.4) fL Immature Gran % (Auto) % Neut % (Auto) % Lymph % (Auto) % [place] % (Auto) % Eos % (Auto) % Baso % (Auto) % Neut # (Auto) (1.4-6.5) K/uL Lymph # (Auto) (1.2-3.4) K/uL [place] # (Auto) (0.24-0.82) K/uL Eos # (Auto) (0-0.50) K/uL Baso # (Auto) (0-0.2) K/uL Immature Gran # (Auto) (0.00-0.02) K/uL PT (9.0-12.0) Seconds INR (0.9-1.1) APTT (21.0-31.0) Seconds PTT Ratio Sodium 135 L (136-145) mmol/L Potassium 4.0 (3.5-5.1) mmol/L Chloride 100 (98-107) mmol/L Carbon Dioxide 30 (21-32) mmol/L Anion Gap 5 (3-11) BUN 12 (6-23) mg/dl Creatinine 0.57 L (0.6-1.4) mg/dl Est Cr Clr Drug Dosing 101.5 ml/min Est GFR ( Amer) 114.0 ml/min Est GFR (Non-Af Amer) 98.4 ml/min BUN/Creatinine Ratio 21.1 H (10-20) Glucose 122 H (70-99(Fasting)) mg/dl Calcium 9.1 (8.5-10.1) mg/dl Magnesium Pending Total Bilirubin 0.6 (0.2-1.0) mg/dl AST 13 (13-39) U/L ALT 11 (7-52) U/L Alkaline Phosphatase 57 (34-104) U/L Total Protein 6.4 (6.0-8.3) gm/dl Albumin 3.8 (3.4-5.0) gm/dl Globulin 2.6 (2.5-4.0) gm/dl Albumin/Globulin Ratio 1.5 (0.9-2) Lipase 27 (11-82) U/L Vitamin B12 Pending TSH Urine Color Urine Appearance Urine pH Ur Specific [place] Urine Protein Urine Glucose (UA) Urine Ketones Urine Blood Urine Nitrite Urine Bilirubin Urine Urobilinogen Ur Leukocyte Esterase SARS-CoV-2, RNA, NAAT (NEGATIVE) 08/07/22 08/07/22 Range/Units 07:50 07:50 WBC 7.67 (4.8-10.8) K/ul RBC 4.95 (4.63-6.08) M/uL Hgb 15.9 (14.0-18.0) g/dl Hct 46.3 (40.1-51.0) % MCV 93.5 (80.0-100.0) fL MCH 32.1 (25.0-34.0) pg MCHC 34.3 (32.0-36.0) g/dL RDW Std Deviation 46.0 (36.4-46.3) fL RDW Coeff of [place] 13.5 (11.5-14.5) % Plt Count 209 (130-400) K/uL MPV 9.6 (9.4-12.4) fL Immature Gran % (Auto) 0.3 % Neut % (Auto) 76.1 % Lymph % (Auto) 15.0 % [place] % (Auto) 7.4 % Eos % (Auto) 0.7 % Baso % (Auto) 0.5 % Neut # (Auto) 5.84 (1.4-6.5) K/uL Lymph # (Auto) 1.15 L (1.2-3.4) K/uL [place] # (Auto) 0.57 (0.24-0.82) K/uL Eos # (Auto) 0.05 (0-0.50) K/uL Baso # (Auto) 0.04 (0-0.2) K/uL Immature Gran # (Auto) 0.02 (0.00-0.02) K/uL PT 10.6 (9.0-12.0) Seconds INR 1.0 (0.9-1.1) APTT 28.4 (21.0-31.0) Seconds PTT Ratio 1.0 Sodium (136-145) mmol/L Potassium (3.5-5.1) mmol/L Chloride (98-107) mmol/L Carbon Dioxide (21-32) mmol/L Anion Gap (3-11) BUN (6-23) mg/dl Creatinine (0.6-1.4) mg/dl Est Cr Clr Drug Dosing ml/min Est GFR ( Amer) ml/min Est GFR (Non-Af Amer) ml/min BUN/Creatinine Ratio (10-20) Glucose (70-99(Fasting)) mg/dl Calcium (8.5-10.1) mg/dl Magnesium Total Bilirubin (0.2-1.0) mg/dl AST (13-39) U/L ALT (7-52) U/L Alkaline Phosphatase (34-104) U/L Total Protein (6.0-8.3) gm/dl Albumin (3.4-5.0) gm/dl Globulin (2.5-4.0) gm/dl Albumin/Globulin Ratio (0.9-2) Lipase (11-82) U/L Vitamin B12 TSH Urine Color Urine Appearance Urine pH Ur Specific [place] Urine Protein Urine Glucose (UA) Urine Ketones Urine Blood Urine Nitrite Urine Bilirubin Urine Urobilinogen Ur Leukocyte Esterase SARS-CoV-2, RNA, NAAT (NEGATIVE) Diagnostic Findings Chest X-Ray 08/07/22 10:40 XR chest 1V portable CLINICAL HISTORY: pre-op COMPARISON STUDY: Chest radiograph July 27, 2022. FINDINGS: Patient is mildly rotated. Lung volumes are normal. Lungs are clear. There is no pneumothorax or pleural effusion. Cardiac size is normal. Mediastinal contours are normal. There is no evidence for pulmonary edema. Dextroscoliosis of the lower thoracic spine is noted. IMPRESSION: No acute cardiopulmonary findings. No significant change in appearance of the chest. ACT 112: Negative or not required by law. Electronically signed by: Raffy Feliciano M.D. 08/07/2022 10:57 AM KUB X-Ray 08/07/22 10:41 KUB CLINICAL HISTORY: eval constipation burden COMPARISON STUDY: CT of the abdomen and pelvis July 27, 2022 and KUB August 04, 2022. FINDINGS: Extensive vascular calcification is incidentally noted. Colonic diverticula are noted. Moderate amount of stool within the colon and rectum is present. This has decreased since CT of July 27, 2022. There is no evidence for a bowel obstruction. IMPRESSION: 1. No evidence for a bowel obstruction. 2. Moderate amount of stool within the colon and rectum, decreased since CT of July 27, 2022. ACT 112: Negative or not required by law. Electronically signed by: Raffy Feliciano M.D. 08/07/2022 11:02 AM Supervising Physician Co-Signing Physician Notes PA Supervision Note: I personally saw and examined the patient. I verified all [place]rieta points and agree with SYL Barrera with the following exceptions and/or additions: S-Pt presents with recurrent LIH with pain and severe constipation. Had hernia reduced in ER twice in last week and came back with a third time and had Surgery reduce in ER. History and ROS otherwise as above O- Vitals reviewed Gen: [AAOx3, NAD] HEENT: [anicteric sclerae, EOMI] CV: [RRR no mgr nl S1S2] Pulm: [CTAB no wcr] Abd: [+BS soft NT ND no masses, LIH reduced, nontender, no scrotal mass, penis normal with Rose in palce draining dark yellow urine] Ext: [no edema] Skin: [no rashes, warm/dry] Neuro: [full strength throughout] A/P-77 yo male here with recurrent incarcerated LIH, ongoing severe constipation, mild hyponatremia, and urinary retention with Rose in palce Keep NPO, give IVFs plan for hernia repair today with General surgery Is at average perioperative CV risk and should proceed with urgent surgery as recommended Plan otherwise outlined as above bowel regimen will be important PG Care Time/CCT Total # of Minutes Spent Total Time Spent with Patient: Total time spent is greater than 50% in coordination of care (as documented) at patient's floor/unit and/or counseling patient: Coding Level of Care Code 16400 Initial Inpt Care Lvl 3 Diagnoses Incarcerated inguinal hernia K40.30 CAD in [place] artery I25.10 Acute abdominal pain R10.9 Inguinal hernia recurrent unilateral K40.91 Obstruction and gangrene presence: without obstruction or gangrene Hyponatremia E87.1 Constipation K59.00 Constipation type: unspecified constipation type Fecal retention K59.00 Iliac artery aneurysm, bilateral I72.3 GERD (gastroesophageal reflux disease) K21.9 Hyperlipidemia LDL goal <70 E78.5 BPH loc w urin obs/LUTS N40.1 Hypertension I10 Diabetes mellitus E11.9 (1) Inguinal hernia recurrent unilateral Obstruction and gangrene presence: without obstruction or gangrene Qualified Code(s): K40.91 - Unilateral inguinal hernia, without obstruction or gangrene, recurrent (2) Constipation Constipation type: unspecified constipation type Qualified Code(s): K59.00 - Constipation, unspecified
[2022-08-07] MEDS ORDERED: bisacodyL 10 MG SUPP PR STA (09:55)
[2022-08-07 10:33] LABS: Appearance Urine Turbid (Clear); Bacteria Urine Automated Negative (Negative); Bilirubin Urine Negative (Negative); Blood Urine Negative (Negative); Cast Urine Automated 0 /lpf (0-5); Color Urine Yellow; Epithelial Cell Urine Auto 0-5 /lpf (0-5); Glucose Urine UA Negative (Negative); Ketones Urine Trace (Negative); Leukocyte Esterase Urine Negative (Negative); Nitrite Urine Negative (Negative); Specific Gravity Urine 1.017 (1.000-1.030); Urobilinogen Urine Negative (Negative)
[2022-08-07 10:43] LABS: Protein Urine Trace (Negative)
--- NOTE | 2022-08-07 10:59 | XRay Report ---
XR chest 1V portable CLINICAL HISTORY: pre-op COMPARISON STUDY: Chest radiograph July 27, 2022. FINDINGS: Patient is mildly rotated. Lung volumes are normal. Lungs are clear. There is no pneumothor ax or pleural effusion. Cardiac size is normal. Mediastinal contours are normal. There is no evidence for pulmonary edema. Dextroscoliosis of the lower thoracic spine is noted. IMPRESSION: No acute cardiopulmonary findings. No significant change in appearance of the chest. ACT 112: Negative or not required by law. Electronically signed by: Raffy Feliciano M.D. 08/07/2022 10:57 AM
--- NOTE | 2022-08-07 11:03 | XRay Report ---
KUB CLINICAL HISTORY: eval constipation burden COMPARISON STUDY: CT of the abdomen and pelvis July 27, 2022 and KUB August 04, 2022. FINDINGS: Extensive vascular calcification is incidentally noted. Colonic diverticula are noted. Mode rate amount of stool within the colon and rectum is present. This has decreased since CT of July 032021. There is no evidence for a bowel obstruction. IMPRESSION: 1. No evidence for a bowel obstruction. 2. Moderate amount of stool within the colon and rectum, decreased since CT of July 27, 2022. ACT 112: Negative or not required by law. Electronically signed by: Raffy Feliciano M.D. 08/07/2022 11:02 AM
[2022-08-07] MEDS ORDERED: ACETAMINOPHEN 1,000 MG/100 ML VIAL IV PRN (11:52)
[2022-08-07] MEDS ORDERED: ONDANSETRON INJ 2 MG/ML 2 ML VIAL IV PRN ×3 (11:52→14:23)
[2022-08-07] MEDS ORDERED: MoRPHine SULFATE 2 MG/ML CARP IV PRN (11:52)
[2022-08-07] MEDS ORDERED: NITROGLYCERIN SL 0.4 MG/TAB TAB SL PRN (12:06)
[2022-08-07] MEDS ORDERED: LIDOCAINE 2% MPF LOCAL 5 ML VIAL INFIL ONE (12:10)
[2022-08-07] MEDS ORDERED: PROPOFOL IV EMULSION 10 MG/ML 20 ML VIAL IV ONE (12:10)
[2022-08-07] MEDS ORDERED: ONDANSETRON INJ 2 MG/ML 2 ML VIAL ONE (12:10)
[2022-08-07] MEDS ORDERED: PANTOprazole 40 MG in SYRINGE 0 ML IV SCH (12:15)
[2022-08-07] MEDS ORDERED: fentaNYL citrate 100 MCG/2 ML VIAL IV PRN (12:31)
[2022-08-07] MEDS ORDERED: HYDROmorphone INJ 2 MG/ML SYR/VIAL IV PRN (12:31)
[2022-08-07] MEDS ORDERED: ATROPINE SULFATE 0.1 MG/ML 10ML SYR IV PRN (12:31)
[2022-08-07] MEDS ORDERED: ePHEDrine sulfate 50 MG/ML AMP IV PRN (12:31)
--- NOTE | 2022-08-07 12:31 | Anesthesiology Consultation ---
Date of Service August 07, 2022 Assessment & Plan ASA ASA3 Proposed Anesthesia Anesthesia Type: General Risk / Benefits Reviewed With: PT / POA / Parent / Guardian, Accepts Plan and Informed Consent Obtained History Surgery Operation Date: 08/07/22 11:00 Proposed Procedures p Left Inguinal Hernia Repair, possible mesh(Left) - Prabhu Manuel MD, FACS Height/Weight Height: 5 ft 8 in Weight: 67.2 kg Allergies Allergy/AdvReac Type Severity Reaction Status Date / Time No Known Allergies Allergy Verified 08/07/22 08:38 Medications Home Medications Medication Instructions Recorded Confirmed Last Taken omeprazole 20 mg tablet,delayed 20 mg PO QPM 07/27/22 08/07/22 08/06/22 release tamsulosin 0.4 mg capsule (Flomax) 0.4 mg PO DAILY 07/27/22 08/07/22 08/06/22 food supplemt, lactose-reduced 1 ea PO DAILY 07/28/22 08/07/22 08/06/22 (Ensure oral liquid) nicotine (polacrilex) 4 mg buccal 4 mg buccal DIRECTED PRN 07/28/22 08/07/22 08/06/22 lozenge SMOKING SESSATION nitroglycerin 0.3 mg sublingual 0.3 mg sublingual DIRECTED PRN 07/28/22 08/07/22 Unknown tablet (Nitrostat) Chest Pain simvastatin 40 mg tablet 20 mg PO HS 07/28/22 08/07/22 08/06/22 sodium chloride 1 gram tablet 1 g PO TID #90 tabs 07/31/22 08/07/22 08/06/22 cephalexin 500 mg capsule 500 mg PO BID 08/04/22 08/07/22 08/06/22 Saccharomyces boulardii 250 mg 250 mg PO BID #20 caps 08/05/22 08/07/22 08/06/22 capsule (Florastor) cefdinir 300 mg capsule 300 mg PO BID 10 days #20 caps 08/05/22 08/07/22 08/06/22 lactulose 20 gram/30 mL oral 20 g (30 mL) PO DAILY PRN 08/05/22 08/07/22 08/06/22 solution constipation #1,200 mL NPO Date Last Intake of Fluids: 08/06/22 Date Last Intake of Solids: 08/06/22 Past Medical History Medical History BPH loc w urin obs/LUTS CAD in [place] artery Diabetes mellitus GERD (gastroesophageal reflux disease) Hyperlipidemia LDL goal <70 Hypertension Iliac artery aneurysm, bilateral Exercise / Class Metabolic Activity II 4-5 Yardwork/Stairs/Walk up hill Past Family History Family History Other Coronary heart disease Stroke Past Surgical History Surgical History No pertinent past surgical history Past Anesthesia History No Hx of Anesthesia Complications and No Family Hx of Anesthesia Complications History of PONV No Hx of PONV and No Hx of Motion Sickness Social History Smoking Status: Current every day smoker tobacco type: cigarettes Smoking cigarettes per day: 15-20 Hx Alcohol Use: No Hx Substance Use: No Review of Systems denies fever/cough/ colds/ chest pain/ SOB/ PAULETTE denies PAULETTE Physical Exam Vital Signs Last Vital Signs Temp 36.3 C L 08/07/22 07:17 Pulse 78 08/07/22 11:15 Resp 20 08/07/22 11:15 BP 170/99 H 08/07/22 11:15 Pulse Ox 97 08/07/22 11:15 O2 Del Method 08/07/22 11:15 ENMT Mouth: no TMJ abnormality and no dentition abnormality Thyromental Distance: > or= 3.5 Finger Breadths Mallampati Class: II Neck neck extension not limited Respiratory normal respiratory effort; no respiratory distress Auscultation: lungs clear to auscultation bilaterally Cardiovascular Rate/Rhythm: regular rate and regular rhythm Neurologic moves all extremities Psychiatric Orientation: alert and oriented x 3 Testing Laboratory Results 08/07/22 07:50 08/07/22 07:50 PT 10.6 Seconds (9.0-12.0) 08/07/22 07:50 INR 1.0 (0.9-1.1) 08/07/22 07:50 APTT 28.4 Seconds (21.0-31.0) 08/07/22 07:50 Urine Color Yellow 08/07/22 10:05 Urine Appearance Turbid (Clear) A 08/07/22 10:05 Urine pH 8.0 (4.5-7.5) H 08/07/22 10:05 Ur Specific [place] 1.017 (1.000-1.030) 08/07/22 10:05 Urine Protein Trace (Negative) H 08/07/22 10:05 Urine Glucose (UA) Negative (Negative) 08/07/22 10:05 Urine Ketones Trace (Negative) H 08/07/22 10:05 Urine Nitrite Negative (Negative) 08/07/22 10:05 Ur Leukocyte Esterase Negative (Negative) 08/07/22 10:05 Urine WBC (Auto) 1-5 /hpf (0-5) 08/07/22 10:05 Urine RBC (Auto) 5-10 /hpf (0-4) H 08/07/22 10:05 U Hyaline Cast (Auto) 0 /lpf (0-5) 08/07/22 10:05 U Epithel Cells (Auto) 0-5 /lpf (0-5) 08/07/22 10:05 Urine Bacteria (Auto) Negative (Negative) 08/07/22 10:05 08/07/22 11:44 POC Glucose 95
[2022-08-07] MEDS ORDERED: BUPIVACAINE 0.5 % 5 MG/1 ML MPF 30ML VIAL ONE (12:41)
[2022-08-07] MEDS ORDERED: ceFAZolin 330 MG/ML 1 GM VIAL ONE (12:51)
[2022-08-07] MEDS ORDERED: cefOXitin 2,000 MG in DEXTROSE 5% 50 ML IV ONE (12:57)
[2022-08-07] MEDS ORDERED: ePHEDrine sulfate 50 MG/ML AMP ONE (12:59)
--- NOTE | 2022-08-07 13:30 | Post Operative Brief Note ---
PG Immediate Post Op with CF Date of Surgery August 07, 2022 Pre & Post Diagnosis Operation Date: 08/07/22 11:00 Pre-Op Diagnosis: Incarcerated left inguinal hernia I identified the patient and participated in the time-out.: Yes Procedure Operation Date: 08/07/22 11:00 Actual Procedures p Left Inguinal Hernia Repair with mesh(Left) - Prabhu Manuel MD, FACS Surgeon Prabhu Manuel MD, FACS [employer] Estimated Blood Loss 5 Findings Consistent with Post-Op Diagnosis Large direct hernia sac with contents reduced Edema and sac from prior incarceration Drains Loza Catheter (had prior to arrival in pre-op/operating room )
[2022-08-07] MEDS ORDERED: ACETAMINOPHEN 1,000 MG/100 ML VIAL IV ONE (13:31)
[2022-08-07] MEDS ORDERED: oxyCODONE HCL IR 5 MG TAB (IMMEDIATE RELEASE) PO PRN (13:31)
--- NOTE | 2022-08-07 14:12 | Anesthesiology Progress Note ---
Date of Service August 07, 2022 Anesthesia Post Procedure Vital Signs Vital Signs: Temp Pulse Pulse Pulse Resp BP BP 08/07/22 14:00 36.7 C 78 16 126/66 08/07/22 13:50 75 16 136/88 08/07/22 13:43 36.7 C 66 16 136/68 08/07/22 11:15 78 20 170/99 H 08/07/22 10:36 69 18 150/81 H 08/07/22 08:35 66 18 139/83 08/07/22 07:17 36.3 C L 78 20 110/65 Pulse Ox O2 Del Method O2 Flow Rate 08/07/22 14:00 98 Room Air 08/07/22 13:50 100 Oxymask 5 08/07/22 13:43 100 Oxymask 5 08/07/22 11:15 97 Room Air 08/07/22 10:36 99 Room Air 08/07/22 08:35 98 Room Air 08/07/22 07:17 99 Room Air Transfer of Care Handoff Completed per policy Notes Mental Status: alert / awake / arousable and participated in evaluation Patient Amnestic to Procedure: Yes Nausea / Vomiting: adequately controlled Pain: adequately controlled Airway Patency, RR, SpO2: stable & adequate BP & HR: stable & adequate Hydration State: stable & adequate Anesthetic Complications: no major complications apparent and Pt Satisfied with anesthetic care
[2022-08-07] MEDS: SODIUM CHLORIDE 0.9% 1000ML 1,000 ML IV SCH (14:47)
[2022-08-07 15:17] LABS: Appearance Urine Clear (Clear); Bilirubin Urine Negative (Negative); Blood Urine Negative (Negative); Color Urine Yellow; Glucose Urine UA Negative (Negative); Ketones Urine Trace (Negative); Leukocyte Esterase Urine Negative (Negative); Nitrite Urine Negative (Negative); Protein Urine Negative (Negative); Specific Gravity Urine 1.021 (1.000-1.030); Urobilinogen Urine Negative (Negative); pH Urine 7.5 (4.5-7.5)
--- NOTE | 2022-08-07 18:31 | Operative Report (OR) ---
DATE OF OPERATION: 08/07/2022. NAME OF OPERATION: Open left inguinal hernia repair. PREOPERATIVE DIAGNOSIS: Incarcerated left inguinal hernia.. POSTOPERATIVE DIAGNOSIS: Incarcerated left inguinal hernia. STAFF SURGEON: Prabhu Manuel MD. BEATER ENGINEER HELPER: Nurses. ANESTHESIA: General. DESCRIPTION OF PROCEDURE: The patient was brought in the operating room and placed on the operating table in supine position. His lower abdomen was prepped and draped in the usual fashion. The patien t had a Loza in place from home. His left lower quadrant was approached. The skin and subcutaneous tissue were anesthetized using 0.5% plain Marcaine. Incision was made parallel to the inguinal liga ment, carrying dissection down, identifying the external fibers. These were incised along their marcello th to the external ring. The patient did have chronic scarring from the chronic hernia. His cord co ntents were reduced. Cord structures were mobilized. A large direct hernia sac was mobilized away f rom the cord structures, then reduced. A large mesh plug placed into the defect, secured to surround ing tissue using 0 silk suture. A large mesh patch placed over the plug and around the cord structur es, secured using 2-0 Ethibond suture. Site was irrigated with antibiotic solution As a note, there was edema in the cord from prior incarceration. The external oblique fibers closed over the mesh maggie und the cord structures using 2-0 Ethibond suture. Site was anesthetized using 0.5% plain Marcaine. Subcutaneous tissue reapproximated using 2-0 plain suture, then the skin reapproximated using staple s. The patient was transferred to the recovery room in stable condition. Job ID: [id number]
[2022-08-07] MEDS: DOCUSATE SODIUM/SENNA 50/8.6MG TAB PO SCH (20:05)
[2022-08-07] MEDS: ceFAZolin 1000MG 1,000 MG/7.5 ML SYR IV SCH (20:05)
[2022-08-07] MEDS: SIMVASTATIN 20 MG TAB PO SCH (20:05)
[2022-08-07] MEDS: MAGNESIUM HYDROXIDE SUSP 30 ML UDC PO SCH (20:05)
[2022-08-08] MEDS: SODIUM CHLORIDE 0.9% 1000ML 1,000 ML IV SCH (03:24)
[2022-08-08] MEDS: ceFAZolin 1000MG 1,000 MG/7.5 ML SYR IV SCH ×3 (05:01→20:14)
--- NOTE | 2022-08-08 06:46 | Surgery Progress Note ---
Date of Service August 08, 2022 Assessment & Plan (1) S/P left inguinal hernia repair: Plan: Patient admitted with incarcerated left inguinal hernia Hernia was reduced prior to operation Patient doing well this morning No hematoma or bleeding Will need to assess his needs prior to discharge home as he is taken care of by his son PT consult Case management evaluation Admission and Anticipated Discharge Date Admission Date: August 07, 2022 Results & Data ([facility]) Vital Signs (Past 12 Hours) Vital Signs Temp Pulse Resp BP Pulse Ox O2 Del Method 08/08/22 03:05 36.5 C 74 16 103/66 97 Room Air 08/07/22 22:02 36.4 C L 58 L 16 108/70 97 Room Air 08/07/22 19:45 36.4 C L 71 16 97/61 L 96 Room Air PG Care Time/CCT Total # of Minutes Spent Total Time Spent with Patient: Total time spent is greater than 50% in coordination of care (as documented) at patient's floor/unit and/or counseling patient: Coding Level of Care Code None Diagnoses S/P left inguinal hernia repair Z98.890; Z87.19
[2022-08-08] MEDS: DOCUSATE SODIUM/SENNA 50/8.6MG TAB PO SCH ×2 (07:29→20:12)
[2022-08-08] MEDS: MAGNESIUM HYDROXIDE SUSP 30 ML UDC PO SCH ×2 (07:30→20:13)
[2022-08-08 07:44] LABS: Hematocrit (blood only) 40.7 % (40.1-51.0); Hemoglobin 14.2 g/dl (14.0-18.0); Mean Corpuscular Hemoglobin 31.8 pg (25.0-34.0); Mean Corpuscular Hgb Conc 34.9 g/dL (32.0-36.0); Mean Corpuscular Volume 91.3 fL (80.0-100.0); Mean Platelet Volume 10.1 fL (9.4-12.4); Platelet Count 198 K/uL (130-400); RDW Coefficient of Variation 13.4 % (11.5-14.5); RDW Standard Deviation 45.1 fL (36.4-46.3); Red Blood Count 4.46 M/uL (4.63-6.08); White Blood Count 8.99 K/ul (4.8-10.8)
[2022-08-08 08:14] LABS: BUN Creatinine Ratio 15.2 (10-20); Calcium 8.1 mg/dl (8.5-10.1); Creatinine Clr Calc Pharmacy 125.8 ml/min; Est GFR (African American) 124.5 ml/min; Est GFR (Non-African American) 107.4 ml/min; Magnesium 2.1 mg/dl (1.7-2.4); Potassium 3.9 mmol/L (3.5-5.1)
--- NOTE | 2022-08-08 08:42 | Hospitalist Progress Note ---
Date of Service August 08, 2022 Assessment & Plan (1) Incarcerated inguinal hernia: Plan: PMHx significant for SIADH, HTN, HLD, pre-DM, GERD, BPH, b/l iliac artery aneurysm, constipation. Prior reduction 08/04-08/05 in ER, then again in AM overnight and discharged home but came right back and presented with recurrent LEFT inguinal hernia incarceration, Reduced this morning in ER by Dr Manuel and plans for surgery today. POD # 1 s/p OPEN LEFT INGUINAL HERNIA REPAIR with Dr Manuel 08/07 Given 1.5L NSS overnight for dehydration 2nd to poor PO intake at home given nausea/pain from prior recurrence of hernia at home Encouraged PO intake, if not may need to consider additional fluids Pain control/antiemetics prn LARGE BM after surgery --> continues on senna/docusate, MOM BID -- can continue these at discharge and would d/c the lactulose given son reported issues with father wanting to take it ASA 81mg resumed daily post op, ok'd by Dr Manuel -- continue given hx CAD as below EKG pre-op Q waves interiorly c/w old MA -- walk city block without issues but not up/down steps due to RLE weakness PT/OT consulted -- pending consults may need to consider some short term inpatient rehab/SNF vs home health services as son stated on admission that it was getting to be a little more than he thought he could handle at home Will need bowel regimen continued at discharge (2) CAD in [place] artery: Plan: with a h/o MA approx age 50-review of old records here from 2000 show sustained an acute inferior wall MA in [facility], was ill for 2days with CP/SOB/N/V and not sought medical help while he was in [facility]. Strong family hx of CAD (mother at 63) with MA and sister around 72 at that time had first MA when she was in mid 60s. Resume ASA 81mg daily (prior d/c last hospital stay), statin 20mg daily s/p PCI x 2 stents per son, doesn't have card Nitro prn Monitor BP, consider adding BB if able to tolerate EKG w/ CP Consider arranging cards f/u outpatient after discharge (3) Acute abdominal pain: Plan: resolved since reduction of inguinal hernia KUB w/ stool burden -- bowel regimen ordered as above, large BM overnight after surgery continue bowel regimen Denies abdominal pain Monitor I&O (4) Inguinal hernia recurrent unilateral: Plan: LEFT sided s/p repair as above (5) Hyponatremia: Plan: Na improved from prior, thought to be SIADH last admission but seems more consi stent with hypovolemia from poor po intake due to constipation and pain Ur Osm last admission high but no Ur Na+ performed Improved now to 135 He appears hypovolemic, urine concentrated ketones in UA, constipated Holding further NaCL tablets, check urine Na/osm studies --> urine sodium increased to 231, urine osm 646 from 347 Given NSS as above, no further Na 132 on AM labs Repeat urine studies after surgery-- further tx pending results BMP in AM (6) Constipation: Plan: reported issues at baseline, hard balls of stools at times at home given suppository x 1 On lactulose daily 20mg -- held , would d/c and instead continue the MOM BID/senna/docusate as above LARGE BM overnight Continue to monitor (7) Iliac artery aneurysm, bilateral: Plan: noted on prior imaging resume ASA 81mg for CAD as above, statin can arrange vascular f/u outpatient (8) GERD (gastroesophageal reflux disease): Plan: resume PO PPI now that no longer NPO (9) Hyperlipidemia LDL goal <70: Plan: continue statin (10) BPH loc w urin obs/LUTS: Plan: with hua since last admission, repeat UA w/o infection No further abx provided voiding trial vs follow up with urology at discharge Will have CM navigator arrange urology f/u regardless given prior issues no need for flomax for now given hua, resume if attempting voiding trial prior to d/c UOP upholsterer helper in color with IVF but still appears to be a little concentrated (11) Hypertension: Plan: noted hx but not on medications BP 135/74, if starting meds consider BB given CAD no reported issues with BB known in the past (12) Diabetes mellitus: Plan: hx of such listed, last A1c only 5.9 monitor BSG AC/HS Glucose 88 on AM labs, BSGs acceptable continue check for now/monitoring PO intake, if improved PO intake/BSGs without hypoglycemia will discontinue Plan DVT prophylaxis-SCDs PT/OT consulted --> continue PT & rehab if unable to attain goals prior to d/c. CM to follow/referrals as needed Admission and Anticipated Discharge Date Admission Date: August 07, 2022 Supervising Physician Co-Signing Physician Notes PA Supervision Note: I did not personally see or examine the patient today, but I verified all arrieta points of SYL Barrera's assessment and plan with the following exceptions/additions: None Subjective eval this morning reports doing well discussed appetite -- didn't eat much of anything for breakfast, states he isn't very hungry. Denies feeling nauseated or like he is going to vomit. No headache/chest pain/shortness of breath. LARGE BM overnight after surgery, remains on bowel regimen which will be continued at discharge Does endorse feeling a little bit cold, turned the temperature up in the room and asked nursing to provide additional warm blankets. Awaiting PT/OT evals (done this morning reportedly) but suspect some rehab at least short term vs services and will touch base with family later today. Questions/concerns addressed at this time. Review of Systems Review of Systems: All systems reviewed & are unremarkable except as noted in HPI & below Physical Exam Physical Exam: General: WD/frail elderly male laying flat in bed, NAD HEENT: head normocephalic, thinning hair, mm improved from yesterday Resp: CTA, diminished in the bases, no w/c, on room air CV: RRR, no m/r/g, no pitting edema/calf tenderness GI: +BS, nontender, no rebound/guarding : hua draining less concentrate yellow urine s/p L inguinal hernia, no erythema/warmth/drainage, nontender MSK/Neuro: moves all extremities, no focal deficit/slurred speech, CN intact grossly Skin: dry, cool Psych: alert, oriented to person/knows in hospital, unclear on year, baseline dementia at times, cooperative/pleasant Results & Data Results & Data ([facility]) Vital Signs (Past 12 Hours) Vital Signs Temp Pulse Resp BP BP Pulse Ox O2 Del Method 08/08/22 07:36 36.6 C 64 16 121/72 91 Room Air 08/08/22 03:05 36.5 C 74 16 103/66 97 Room Air 08/07/22 22:02 36.4 C L 58 L 16 108/70 97 Room Air Laboratory Results 08/08/22 08/08/22 08/08/22 Range/Units 12:02 08:07 06:44 WBC (4.8-10.8) K/ul RBC (4.63-6.08) M/uL Hgb (14.0-18.0) g/dl Hct (40.1-51.0) % MCV (80.0-100.0) fL MCH (25.0-34.0) pg MCHC (32.0-36.0) g/dL RDW Std Deviation (36.4-46.3) fL RDW Coeff of Andria (11.5-14.5) % Plt Count (130-400) K/uL MPV (9.4-12.4) fL Sodium 132 L (136-145) mmol/L Potassium 3.9 (3.5-5.1) mmol/L Chloride 100 (98-107) mmol/L Carbon Dioxide 27 (21-32) mmol/L Anion Gap 5 (3-11) BUN 7 (6-23) mg/dl Creatinine 0.46 L (0.6-1.4) mg/dl Est Cr Clr Drug Dosing 125.8 ml/min Est GFR ( Amer) 124.5 ml/min Est GFR (Non-Af Amer) 107.4 ml/min BUN/Creatinine Ratio 15.2 (10-20) Glucose 99 (70-99(Fasting)) mg/dl POC Glucose 88 104 H (70-99) mg/dl Calcium 8.1 L (8.5-10.1) mg/dl Magnesium 2.1 (1.7-2.4) mg/dl Vitamin B12 (180-914) pg/ml Urine Color Urine Appearance (Clear) Urine pH (4.5-7.5) Ur Specific [place] (1.000-1.030) Urine Protein (Negative) Urine Glucose (UA) (Negative) Urine Ketones (Negative) Urine Blood (Negative) Urine Nitrite (Negative) Urine Bilirubin (Negative) Urine Urobilinogen (Negative) Ur Leukocyte Esterase (Negative) Urine Osmolality (500-800) mOsm/kg Ur Random Sodium mmol/L 08/08/22 08/07/22 08/07/22 Range/Units 06:44 21:08 16:54 WBC 8.99 (4.8-10.8) K/ul RBC 4.46 L (4.63-6.08) M/uL Hgb 14.2 (14.0-18.0) g/dl Hct 40.7 (40.1-51.0) % MCV 91.3 (80.0-100.0) fL MCH 31.8 (25.0-34.0) pg MCHC 34.9 (32.0-36.0) g/dL RDW Std Deviation 45.1 (36.4-46.3) fL RDW Coeff of Andria 13.4 (11.5-14.5) % Plt Count 198 (130-400) K/uL MPV 10.1 (9.4-12.4) fL Sodium (136-145) mmol/L Potassium (3.5-5.1) mmol/L Chloride (98-107) mmol/L Carbon Dioxide (21-32) mmol/L Anion Gap (3-11) BUN (6-23) mg/dl Creatinine (0.6-1.4) mg/dl Est Cr Clr Drug Dosing ml/min Est GFR ( Amer) ml/min Est GFR (Non-Af Amer) ml/min BUN/Creatinine Ratio (10-20) Glucose (70-99(Fasting)) mg/dl POC Glucose 90 104 H (70-99) mg/dl Calcium (8.5-10.1) mg/dl Magnesium (1.7-2.4) mg/dl Vitamin B12 (180-914) pg/ml Urine Color Urine Appearance (Clear) Urine pH (4.5-7.5) Ur Specific [place] (1.000-1.030) Urine Protein (Negative) Urine Glucose (UA) (Negative) Urine Ketones (Negative) Urine Blood (Negative) Urine Nitrite (Negative) Urine Bilirubin (Negative) Urine Urobilinogen (Negative) Ur Leukocyte Esterase (Negative) Urine Osmolality (500-800) mOsm/kg Ur Random Sodium mmol/L 08/07/22 08/07/22 08/07/22 Range/Units 15:00 15:00 15:00 WBC (4.8-10.8) K/ul RBC (4.63-6.08) M/uL Hgb (14.0-18.0) g/dl Hct (40.1-51.0) % MCV (80.0-100.0) fL MCH (25.0-34.0) pg MCHC (32.0-36.0) g/dL RDW Std Deviation (36.4-46.3) fL RDW Coeff of Andria (11.5-14.5) % Plt Count (130-400) K/uL MPV (9.4-12.4) fL Sodium (136-145) mmol/L Potassium (3.5-5.1) mmol/L Chloride (98-107) mmol/L Carbon Dioxide (21-32) mmol/L Anion Gap (3-11) BUN (6-23) mg/dl Creatinine (0.6-1.4) mg/dl Est Cr Clr Drug Dosing ml/min Est GFR ( Amer) ml/min Est GFR (Non-Af Amer) ml/min BUN/Creatinine Ratio (10-20) Glucose (70-99(Fasting)) mg/dl POC Glucose (70-99) mg/dl Calcium (8.5-10.1) mg/dl Magnesium (1.7-2.4) mg/dl Vitamin B12 (180-914) pg/ml Urine Color Yellow Urine Appearance Clear (Clear) Urine pH 7.5 (4.5-7.5) Ur Specific [place] 1.021 (1.000-1.030) Urine Protein Negative (Negative) Urine Glucose (UA) Negative (Negative) Urine Ketones Trace H (Negative) Urine Blood Negative (Negative) Urine Nitrite Negative (Negative) Urine Bilirubin Negative (Negative) Urine Urobilinogen Negative (Negative) Ur Leukocyte Esterase Negative (Negative) Urine Osmolality 646 (500-800) mOsm/kg Ur Random Sodium 231 mmol/L 08/07/22 08/07/22 Range/Units 14:47 07:50 WBC (4.8-10.8) K/ul RBC (4.63-6.08) M/uL Hgb (14.0-18.0) g/dl Hct (40.1-51.0) % MCV (80.0-100.0) fL MCH (25.0-34.0) pg MCHC (32.0-36.0) g/dL RDW Std Deviation (36.4-46.3) fL RDW Coeff of Andria (11.5-14.5) % Plt Count (130-400) K/uL MPV (9.4-12.4) fL Sodium (136-145) mmol/L Potassium (3.5-5.1) mmol/L Chloride (98-107) mmol/L Carbon Dioxide (21-32) mmol/L Anion Gap (3-11) BUN (6-23) mg/dl Creatinine (0.6-1.4) mg/dl Est Cr Clr Drug Dosing ml/min Est GFR ( Amer) ml/min Est GFR (Non-Af Amer) ml/min BUN/Creatinine Ratio (10-20) Glucose (70-99(Fasting)) mg/dl POC Glucose 137 H (70-99) mg/dl Calcium (8.5-10.1) mg/dl Magnesium (1.7-2.4) mg/dl Vitamin B12 782 (180-914) pg/ml Urine Color Urine Appearance (Clear) Urine pH (4.5-7.5) Ur Specific [place] (1.000-1.030) Urine Protein (Negative) Urine Glucose (UA) (Negative) Urine Ketones (Negative) Urine Blood (Negative) Urine Nitrite (Negative) Urine Bilirubin (Negative) Urine Urobilinogen (Negative) Ur Leukocyte Esterase (Negative) Urine Osmolality (500-800) mOsm/kg Ur Random Sodium mmol/L PG Care Time/CCT Total # of Minutes Spent Total Time Spent with Patient: Total time spent is greater than 50% in coordination of care (as documented) at patient's floor/unit and/or counseling patient: Coding Level of Care Code 85167 Subseq Hosp Care Lvl 2 Diagnoses Incarcerated inguinal hernia K40.30 CAD in [place] artery I25.10 Acute abdominal pain R10.9 Inguinal hernia recurrent unilateral K40.91 Obstruction and gangrene presence: without obstruction or gangrene Hyponatremia E87.1 Constipation K59.00 Constipation type: unspecified constipation type Iliac artery aneurysm, bilateral I72.3 GERD (gastroesophageal reflux disease) K21.9 Hyperlipidemia LDL goal <70 E78.5 BPH loc w urin obs/LUTS N40.1 Hypertension I10 Diabetes mellitus E11.9 (1) Inguinal hernia recurrent unilateral Obstruction and gangrene presence: without obstruction or gangrene Qualified Code(s): K40.91 - Unilateral inguinal hernia, without obstruction or gangrene, recurrent (2) Constipation Constipation type: unspecified constipation type Qualified Code(s): K59.00 - Constipation, unspecified
--- NOTE | 2022-08-08 09:49 | Electrocardiogram Report ---
Test Reason : Blood Pressure : / mmHG Vent. 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
[2022-08-08] MEDS: PANTOprazole 40 MG TAB PO SCH (10:40)
[2022-08-08] MEDS: ASPIRIN 81 MG ECTAB PO SCH (10:40)
[2022-08-08] MEDS: SIMVASTATIN 20 MG TAB PO SCH (20:13)
[2022-08-09] MEDS: ceFAZolin 1000MG 1,000 MG/7.5 ML SYR IV SCH ×3 (05:18→20:05)
[2022-08-09 07:36] LABS: BUN Creatinine Ratio 16.3 (10-20); Calcium 8.4 mg/dl (8.5-10.1); Creatinine Clr Calc Pharmacy 134.6 ml/min; Est GFR (Non-African American) 110.4 ml/min; Magnesium 2.5 mg/dl (1.7-2.4)
--- NOTE | 2022-08-09 08:26 | Surgery Progress Note ---
Date of Service August 09, 2022 Assessment & Plan (1) S/P left inguinal hernia repair: Plan: Patient is doing very well from a surgical standpoint Problem is his mobilization and possibility of falling at home Case management is working with the son to determine whether he may need little extra help Discharge today or tomorrow if possible depending on where he needs to go Admission and Anticipated Discharge Date Admission Date: August 07, 2022 Results & Data ([facility]) Vital Signs (Past 12 Hours) Vital Signs Temp Pulse Resp BP O2 Del Method 08/09/22 07:42 36.5 C 81 20 121/74 08/08/22 20:31 Room Air PG Care Time/CCT Total # of Minutes Spent Total Time Spent with Patient: Total time spent is greater than 50% in coordination of care (as documented) at patient's floor/unit and/or counseling patient: Coding Level of Care Code None Diagnoses S/P left inguinal hernia repair Z98.890; Z87.19
[2022-08-09] MEDS: DOCUSATE SODIUM/SENNA 50/8.6MG TAB PO SCH ×2 (09:54→20:05)
[2022-08-09] MEDS: ASPIRIN 81 MG ECTAB PO SCH (09:54)
[2022-08-09] MEDS: MAGNESIUM HYDROXIDE SUSP 30 ML UDC PO SCH ×2 (09:55→20:06)
[2022-08-09] MEDS: PANTOprazole 40 MG TAB PO SCH (09:56)
--- NOTE | 2022-08-09 11:06 | Hospitalist Progress Note ---
Date of Service August 09, 2022 Assessment & Plan (1) Incarcerated inguinal hernia: Plan: PMHx significant for SIADH, HTN, HLD, pre-DM, GERD, BPH, b/l iliac artery aneurysm, constipation. Prior reduction 08/04-08/05 in ER, then again in AM overnight and discharged home but came right back and presented with recurrent LEFT inguinal hernia incarceration, Reduced this morning in ER by Dr Manuel POD # 2 s/p OPEN LEFT INGUINAL HERNIA REPAIR with Dr Manuel 08/07 s/p 1.5L NSS overnight for dehydration post-operatively. Prior low sodium (no urine sodium level and sent on PO NaCL BID) Repeat urine studies likely SIADH worsened by anesthesia PO intake minimal/almost none -- reported due to pain today, only got tylenol. tolerated oxycodone in the past. Asked RN to administer. Monitor PO inake w/ pain control continue bowel regimen -- MOM BID, senna/docusate. D/c lactulose as given last admit ASA resumed post-op as ok w/ surgery -- continue daily given hx CAD Monitor overnight, but PT/OT rec home HH if able to meet goals. CM following, son to take home tomorrow if pain controlled/PO intake improved CM arranging outpatient f/u Urology and will need HH to exchange hua as well (2) CAD in [place] artery: Plan: with a h/o NV approx age 50-review of old records here from 2000 show sustained an acute inferior wall NV in [facility], was ill for 2days with CP/SOB/N/V and not sought medical help while he was in [facility]. Strong family hx of CAD (mother at 63) with NV and sister around 72 at that time had first NV when she was in mid 60s. Resumed ASA 81mg daily (prior d/c last hospital stay), statin 20mg daily s/p PCI x 2 stents per son, doesn't have card with him Nitro prn Monitor BP, consider adding BB if able to tolerate -- BP stable 121/74 currently EKG w/ CP Consider arranging cards f/u outpatient after discharge (3) Acute abdominal pain: Plan: resolved since reduction of inguinal hernia KUB w/ stool burden -- bowel regimen ordered as above, large BM overnight after surgery continue bowel regimen Denies abdominal pain 08/08, but stating having abdominal pain in site of surgical incision --> Oxycodone x 1 Has good bowel sounds throughout, KUB if any increased pain/decreased flatus to eval for ileus. Last LARGE BM 08/07 post-operatively after surgery Monitor I&O as above (4) Inguinal hernia recurrent unilateral: Plan: LEFT sided s/p repair as above (5) Hyponatremia: Plan: Na improved from prior, thought to be SIADH last admission but seems more consistent with hypovolemia from poor po intake due to constipation and pain Ur Osm last admission high but no Ur Na+ performed Improved now to 135 He appears hypovolemic, urine concentrated ketones in UA, constipated Holding further NaCL tablets, check urine Na/osm studies --> urine sodium increased to 231, urine osm 646 from 347 Given NSS as above, no further Na 132 on AM labs, repeat the same Repeat urine studies after surgery urine osm 374, urine sodium 141 after surgery (wsa 231) PO intake, consider adding dose NaCl tablet x 1 this evening if no increased PO intake BMP in AM (6) Constipation: Plan: reported issues at baseline, hard balls of stools at times at home given suppository x 1 On lactulose daily 20mg -- held , would d/c and instead continue the MOM BID/senna/docusate as above LARGE BM overnight 08/07 Continue to monitor (7) Iliac artery aneurysm, bilateral: Plan: noted on prior imaging resume ASA 81mg for CAD as above, statin can arrange vascular f/u outpatient (8) GERD (gastroesophageal reflux disease): Plan: resumed PO PPI now that no longer NPO (9) Hyperlipidemia LDL goal <70: Plan: continue statin (10) BPH loc w urin obs/LUTS: Plan: with hua since last admission, repeat UA w/o infection No further abx provided voiding trial vs follow up with urology at discharge UOP 1.21ml/kg/hr, 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 with IVF after surgery , less concentrated Will have CM navigator arrange urology f/u regardless given prior issues no need for flomax for now given hua, resume if attempting voiding trial prior to d/c (11) Hypertension: Plan: noted hx but not on medications BP 121/74, if starting meds consider BB given CAD no reported issues with BB known in the past (12) Diabetes mellitus: Plan: hx of such listed, last A1c only 5.9 monitor BSG AC/HS Glucose 88 on AM labs, BSGs acceptable continue check for now/monitoring PO intake, if improved PO intake/BSGs without hypoglycemia will discontinue BSGs acceptable Plan DVT prophylaxis-SCDs PT/OT consulted --> planning for home with HH therapy tomorrow Will need urology follow up outpatient for voiding trial, asked CM to ensure HH to change hua after placement for one month Admission and Anticipated Discharge Date Admission Date: August 07, 2022 Supervising Physician Co-Signing Physician Notes Attending Attestation - Chart reviewed, care plan d/w SYL Barrera. I agree w/ the arrieta components of her documentation. Brooks Nelson MD Subjective Patient evaluated this morning. Reporting pain to incision and not getting good sleep and believes if not controlled will not sleep well tonight. Pain causing him not wanting to eat. Discussed oxycodone, he states he has taken this in the past.Asked RN to administer and monitoring PO intake for lunch. Planning for HH therapy tomorrow and outpatient Urology follow up for hua management and alerted CM of need for hua exchange at home. Will monitor overnight and see if improvement in PO intake/pain control and if controlled/improved will plan for d/c tomorrow with son. No fever/chills, chest pain, shortness of breath. Passing gas. Increased discomfort when coughing and RN to provide incentive spirometer. Questions/concerns addressed at this time. Review of Systems Review of Systems: All systems reviewed & are unremarkable except as noted in HPI & below Physical Exam Physical Exam: General: WD/frail elderly sitting up in recliner, pillow in lap, midly uncomfortable appearing, reporting pain HEENT: head normocephalic, thinning hair, mm improved from yesterday Resp: CTA, diminished in the bases, no w/c, on room air 97% CV: RRR, no m/r/g, no pitting edema/calf tenderness GI: +BS throughout, nontender, no rebound/guarding : hua draining yellow urine s/p L inguinal hernia, no erythema/warmth/drainage, tender to palpation MSK/Neuro: moves all extremities, no focal deficit/slurred speech, CN intact grossly Skin: dry, cool Psych: alert, oriented to person/knows in hospital, unclear on year, baseline dementia at times, cooperative/pleasant Results & Data Results & Data ([facility]) Vital Signs (Past 12 Hours) Vital Signs Temp Pulse Resp BP 08/09/22 07:42 36.5 C 81 20 121/74 Laboratory Results 08/09/22 08/09/22 08/08/22 Range/Units 08:06 06:39 20:27 Sodium 132 L (136-145) mmol/L Potassium 4.0 (3.5-5.1) mmol/L Chloride 98 (98-107) mmol/L Carbon Dioxide 25 (21-32) mmol/L Anion Gap 9 (3-11) BUN 7 (6-23) mg/dl Creatinine 0.43 L (0.6-1.4) mg/dl Est Cr Clr Drug Dosing 134.6 ml/min Est GFR ( Amer) 128.0 ml/min Est GFR (Non-Af Amer) 110.4 ml/min BUN/Creatinine Ratio 16.3 (10-20) Glucose 81 (70-99(Fasting)) mg/dl POC Glucose 84 82 (70-99) mg/dl Calcium 8.4 L (8.5-10.1) mg/dl Magnesium 2.5 H (1.7-2.4) mg/dl Urine Osmolality (500-800) mOsm/kg Ur Random Sodium mmol/L 08/08/22 08/08/22 08/08/22 Range/Units 17:07 13:25 13:25 Sodium (136-145) mmol/L Potassium (3.5-5.1) mmol/L Chloride (98-107) mmol/L Carbon Dioxide (21-32) mmol/L Anion Gap (3-11) BUN (6-23) mg/dl Creatinine (0.6-1.4) mg/dl Est Cr Clr Drug Dosing ml/min Est GFR ( Amer) ml/min Est GFR (Non-Af Amer) ml/min BUN/Creatinine Ratio (10-20) Glucose (70-99(Fasting)) mg/dl POC Glucose 94 (70-99) mg/dl Calcium (8.5-10.1) mg/dl Magnesium (1.7-2.4) mg/dl Urine Osmolality 374 L (500-800) mOsm/kg Ur Random Sodium 141 mmol/L 08/08/22 Range/Units 12:02 Sodium (136-145) mmol/L Potassium (3.5-5.1) mmol/L Chloride (98-107) mmol/L Carbon Dioxide (21-32) mmol/L Anion Gap (3-11) BUN (6-23) mg/dl Creatinine (0.6-1.4) mg/dl Est Cr Clr Drug Dosing ml/min Est GFR ( Amer) ml/min Est GFR (Non-Af Amer) ml/min BUN/Creatinine Ratio (10-20) Glucose (70-99(Fasting)) mg/dl POC Glucose 88 (70-99) mg/dl Calcium (8.5-10.1) mg/dl Magnesium (1.7-2.4) mg/dl Urine Osmolality (500-800) mOsm/kg Ur Random Sodium mmol/L PG Care Time/CCT Total # of Minutes Spent Total Time Spent with Patient: Total time spent is greater than 50% in coordination of care (as documented) at patient's floor/unit and/or counseling patient: Coding Level of Care Code 27402 Subseq Hosp Care Lvl 2 Diagnoses Incarcerated inguinal hernia K40.30 CAD in [place] artery I25.10 Acute abdominal pain R10.9 Inguinal hernia recurrent unilateral K40.91 Obstruction and gangrene presence: without obstruction or gangrene Hyponatremia E87.1 Constipation K59.00 Constipation type: unspecified constipation type Iliac artery aneurysm, bilateral I72.3 GERD (gastroesophageal reflux disease) K21.9 Hyperlipidemia LDL goal <70 E78.5 BPH loc w urin obs/LUTS N40.1 Hypertension I10 Diabetes mellitus E11.9 (1) Inguinal hernia recurrent unilateral Obstruction and gangrene presence: without obstruction or gangrene Qualified Code(s): K40.91 - Unilateral inguinal hernia, without obstruction or gangrene, recurrent (2) Constipation Constipation type: unspecified constipation type Qualified Code(s): K59.00 - Constipation, unspecified
[2022-08-09] MEDS ORDERED: SODIUM CHLORIDE 0.9% 1000ML 500 ML IV ONE (12:57)
[2022-08-09] MEDS: SIMVASTATIN 20 MG TAB PO SCH (20:05)
[2022-08-10] MEDS: ceFAZolin 1000MG 1,000 MG/7.5 ML SYR IV SCH ×2 (05:09→12:33)
[2022-08-10] MEDS ORDERED: HYDROCODONE/ACETAMOPHEN 5/325MG TAB PO PRN (06:05)
--- NOTE | 2022-08-10 06:42 | Surgery Progress Note ---
Date of Service August 10, 2022 Assessment & Plan (1) S/P left inguinal hernia repair: Plan: Overall doing relatively well Awaiting help at home Continue current management as well as antibiotics Hopefully can discharge today or tomorrow Admission and Anticipated Discharge Date Admission Date: August 07, 2022 Results & Data ([facility]) Vital Signs (Past 12 Hours) Vital Signs Temp Pulse Resp BP Pulse Ox O2 Del Method 08/09/22 20:04 36.4 C L 77 16 127/73 96 Room Air PG Care Time/CCT Total # of Minutes Spent Total Time Spent with Patient: Total time spent is greater than 50% in coordination of care (as documented) at patient's floor/unit and/or counseling patient: Coding Level of Care Code None Diagnoses S/P left inguinal hernia repair Z98.890; Z87.19
[2022-08-10 06:54] LABS: Hematocrit (blood only) 44.6 % (40.1-51.0); Hemoglobin 15.6 g/dl (14.0-18.0); Mean Corpuscular Hemoglobin 32.3 pg (25.0-34.0); Mean Corpuscular Volume 92.3 fL (80.0-100.0); Mean Platelet Volume 9.7 fL (9.4-12.4); Platelet Count 232 K/uL (130-400); RDW Coefficient of Variation 13.2 % (11.5-14.5); Red Blood Count 4.83 M/uL (4.63-6.08); White Blood Count 9.33 K/ul (4.8-10.8)
[2022-08-10 08:03] LABS: BUN Creatinine Ratio 20.8 (10-20); Calcium 8.6 mg/dl (8.5-10.1); Creatinine Clr Calc Pharmacy 120.6 ml/min; Est GFR (African American) 122.3 ml/min; Est GFR (Non-African American) 105.6 ml/min; Potassium 3.7 mmol/L (3.5-5.1)
[2022-08-10] MEDS: PANTOprazole 40 MG TAB PO SCH (08:12)
[2022-08-10] MEDS: ASPIRIN 81 MG ECTAB PO SCH (08:12)
[2022-08-10] MEDS: DOCUSATE SODIUM/SENNA 50/8.6MG TAB PO SCH ×2 (08:13→20:02)
[2022-08-10] MEDS: MAGNESIUM HYDROXIDE SUSP 30 ML UDC PO SCH ×2 (08:13→20:02)
--- NOTE | 2022-08-10 14:05 | Hospitalist Progress Note ---
Date of Service August 10, 2022 Assessment & Plan (1) LLL pneumonia: Plan: Due to failure to thrive, poor appetite, and weight loss/malnutrition - and given his extensive smoking history and cough - I elected to check a CT chest to r/o malignancy, pneumonia, other findings. No obvious nodule/mass seen. However, he does have evidence of LLL pneumonia with significant debris in the left-sided bronchial tree. Will Rx for pneumonia - this likely explains his lack of appetite during this admission and significant weakness. Given frequent ER visits and recent hospitalization in July will need to cover for hospital-acquired pathogens/GNRs. To that end start cefepime 2gm q8h. Stop ancef. He has some very minimal wheezes and emphysematous changes on CT - will use low- dose prednisone. This may help appetite as well. Consider bronchodilators, mucinex, etc. Cont incentive rekha. Would add flutter valve. Finally, will ask speech to see to ensure no dysphagia contributing to clinical picture. (2) Severe protein-calorie malnutrition: Plan: at least 6-8 kg of weight loss since early July, and up to 20 pounds in total over the last 6-12 months per son. certainly concerning for underlying malignancy in light of past extensive smoking history. see #1 above. Rx pneumonia and go from there. (3) Incarcerated inguinal hernia: Plan: POD # 3 s/p OPEN LEFT INGUINAL HERNIA REPAIR with Dr Manuel 08/07 from surgical standpoint he is stable/well, but having issues with appetite, mobility, #1/#2, etc. aspirin resumed post-op given poor mobility need to add chemical DVT proph (4) CAD in [place] artery: Plan: with a h/o DE approx age 50-review of old records here from 2000 show sustained an acute inferior wall DE in [facility], was ill for 2days with CP/SOB/N/V and not sought medical help while he was in [facility]. Strong family hx of CAD (mother at 63 from DE, sister with DE). cont asa cont statin no ischemic symptoms at this time (5) Acute abdominal pain: Plan: 2nd to #3 - resolved now with expected post-op pain over L inguinal hernia surgical site (6) Inguinal hernia recurrent unilateral: Plan: LEFT sided s/p repair as above (7) Hyponatremia: Plan: improved most recent urine sodium increased to 141, urine osm 347 prior serum osm 262 these values seem most c/w SIADH but again Na level improved repeat BMP am for stability (8) Constipation: Plan: resolved cont bowel regimen (senna/colace/MOM -- consider changing MOM to miralax daily) (9) Iliac artery aneurysm, bilateral: Plan: noted on prior imaging incidental finding cont statin cont asa can arrange vascular f/u outpatient (10) GERD (gastroesophageal reflux disease): Plan: PPI no issues (11) Hyperlipidemia LDL goal <70: Plan: continue statin (12) BPH loc w urin obs/LUTS: Plan: with hua since last admission, repeat UA w/o infection voiding trial vs follow up with urology at discharge would resume flomax (13) Hypertension: Plan: BPs wnl without anti-hypertensives (14) Diabetes mellitus: Plan: hx of such listed, last A1c only 5.9% in July 2022 - c/w pre-DM only all BSGs here 150 or less monitor off of any meds (15) Failure to thrive in adult: Plan: see above Plan patient is not fit for discharge - no appetite, poor mobility, LLL pneumonia, etc son updated at bedside agrees with plan Admission and Anticipated Discharge Date Admission Date: August 07, 2022 Subjective patient sitting in chair by the window during the visit his son was visiting main complaint is that of pain over his operative site during the encounter he had an intermittent wet-sounding cough he is a very poor historian, but states the cough has been present "for a year" son reports his dad has had a very poor appetite for months or longer has had nearly 20 pounds of weight loss in the last year? [facility] - son mentions "an elevated abnormal protein" and the [place] recommended he see hematology (MGUS? multiple myeloma work up?) patient refused both breakfast and lunch he simply does not have an appetite mobility continues to be poor but his son still wishes to take his father home (they live together) Review of Systems Review of Systems: gen - no fevers cv - no cp pulm - cough, but denies dyspnea at rest; he is prior smoker - 50 years minimum, quit in the past GI - no nausea or emesis; passing flatus psych - some sleep issues at times; denies depression Physical Exam Physical Exam: gen - thin, frail, sitting in chair, NAD neck - no JVD, no lymphadenopathy mouth - poor dentition, MMM, no lesions heart - RRR, s1 s2 lungs - rales bases, faint end-exp wheeze scattered, no increased work of breathing abd - soft NT ND BS+; dressings intact over left groin, no obvious hernia present or bulge ext - no edema, pulses 2+ b/l Results & Data Results & Data ([facility]) Vital Signs (Past 12 Hours) Vital Signs Temp Pulse Resp BP Pulse Ox O2 Del Method 08/10/22 07:15 36.5 C 74 18 136/80 97 Room Air Laboratory Results Laboratory Results - last 24 hr 08/10/22 08/10/22 08/10/22 05:47 05:47 08:16 WBC 9.33 RBC 4.83 Hgb 15.6 Hct 44.6 MCV 92.3 MCH 32.3 MCHC 35.0 RDW Std Deviation 45.0 RDW Coeff of Andria 13.2 Plt Count 232 MPV 9.7 Sodium 135 L Potassium 3.7 Chloride 98 Carbon Dioxide 26 Anion Gap 11 BUN 10 Creatinine 0.48 L Est Cr Clr Drug Dosing 120.6 Est GFR ( Amer) 122.3 Est GFR (Non-Af Amer) 105.6 BUN/Creatinine Ratio 20.8 H Glucose 94 POC Glucose 107 H Calcium 8.6 08/10/22 08/10/22 08/10/22 11:49 16:59 20:42 WBC RBC Hgb Hct MCV MCH MCHC RDW Std Deviation RDW Coeff of Andria Plt Count MPV Sodium Potassium Chloride Carbon Dioxide Anion Gap BUN Creatinine Est Cr Clr Drug Dosing Est GFR ( Amer) Est GFR (Non-Af Amer) BUN/Creatinine Ratio Glucose POC Glucose 106 H 121 H 150 H Calcium Diagnostic Findings Chest CT 08/10/22 16:53 CT SCAN OF THE CHEST WITHOUT IV CONTRAST CLINICAL HISTORY: Anorexia. Weight loss. Smoking history. COMPARISON STUDY: Chest x-ray dated 08/07/2022. Chest CT dated 05/21/2021. TECHNIQUE: CT scan of the thorax was performed from the thoracic inlet to the upper abdomen. Images are reviewed in the axial, sagittal, and coronal planes. IV contrast was not administered for this examination as per the referring clinician. A dose lowering technique was utilized adhering to the principles of ALARA. The examination is compromised by motion artifact. CT DOSE: 373.54 mGy.cm FINDINGS: Thyroid: Imaged portions of the thyroid gland are normal in size and attenuation. Thoracic aorta: There is atherosclerotic calcification of the thoracic aorta, which is normal in caliber and demonstrates standard 3-vessel arch anatomy. Heart: The heart is mildly enlarged and without pericardial effusion. The coronary arteries are densely calcified. Lungs and pleural spaces: Evaluation of the lung parenchyma is degraded by motion artifact. Emphysematous change is observed. The trachea is clear. Debris/secretions are present in the left mainstem bronchus in the left lower lobe airways. There is left basilar consolidation. No pleural effusion is identified. Mediastinum: There is no mediastinal lymphadenopathy. Karon: Not well assessed without IV contrast. Axillae: There is no axillary lymphadenopathy. Upper abdomen: There are numerous calcified gallstones. A small hiatal hernia is noted. Skeletal structures: The skeletal structures are osteopenic. No lytic or blastic bony lesions are seen. Spondylotic change is seen throughout the spine. IMPRESSION: 1. Cardiomegaly and emphysema. 2. There is airspace consolidation at the left lung base. Additionally, there is secretions/debris within the left mainstem bronchus and throughout the left lower lobe airways. The appearance is typical for pneumonia/aspiration pneumonitis. Clinical correlation will be required. Consider a three-month follow-up chest CT to document resolution. 3. The right lung appears clear. 4. Cholelithiasis. 5. Additional findings as above. ACT 112: Negative or not required by law. Electronically signed by: Kelechi Choi M.D. 08/10/2022 5:54 PM PG Care Time/CCT Total # of Minutes Spent Total Time Spent with Patient: Total time spent is greater than 50% in coordination of care (as documented) at patient's floor/unit and/or counseling patient: Coding Level of Care Code 52749 Subseq Hosp Care Lvl 3 Diagnoses LLL pneumonia J18.9 Severe protein-calorie malnutrition E43 Incarcerated inguinal hernia K40.30 CAD in [place] artery I25.10 Acute abdominal pain R10.9 Inguinal hernia recurrent unilateral K40.91 Obstruction and gangrene presence: without obstruction or gangrene Hyponatremia E87.1 Constipation K59.00 Constipation type: unspecified constipation type Iliac artery aneurysm, bilateral I72.3 GERD (gastroesophageal reflux disease) K21.9 Hyperlipidemia LDL goal <70 E78.5 BPH loc w urin obs/LUTS N40.1 Hypertension I10 Diabetes mellitus E11.9 Failure to thrive in adult R62.7 (1) Inguinal hernia recurrent unilateral Obstruction and gangrene presence: without obstruction or gangrene Qualified Code(s): K40.91 - Unilateral inguinal hernia, without obstruction or gangrene, recurrent (2) Constipation Constipation type: unspecified constipation type Qualified Code(s): K59.00 - Constipation, unspecified
[2022-08-10] MEDS ORDERED: predniSONE 20 MG TAB PO ONE (14:30)
--- NOTE | 2022-08-10 17:56 | CT Scan Report ---
CT SCAN OF THE CHEST WITHOUT IV CONTRAST CLINICAL HISTORY: Anorexia. Weight loss. Smoking history. COMPARISON STUDY: Chest x-ray dated 08/07/2022. Chest CT dated 05/21/2021. TECHNIQUE: CT scan of the thorax was performed from the thoracic inlet to the upper abdomen. Images are reviewed in the axial, sagittal, and coronal planes. IV contrast was not administered for this ex amination as per the referring clinician. A dose lowering technique was utilized adhering to the ashleigh Partida. The examination is compromised by motion artifact. CT DOSE: 373.54 mGy.cm FINDINGS: Thyroid: Imaged portions of the thyroid gland are normal in size and attenuation. Thoracic aorta: There is atherosclerotic calcification of the thoracic aorta, which is normal in yvette yun and demonstrates standard 3-vessel arch anatomy. Heart: The heart is mildly enlarged and without pericardial effusion. The coronary arteries are dense ly calcified. Lungs and pleural spaces: Evaluation of the lung parenchyma is degraded by motion artifact. Emphysema tous change is observed. The trachea is clear. Debris/secretions are present in the left mainstem bro nchus in the left lower lobe airways. There is left basilar consolidation. No pleural effusion is brendon ntified. Mediastinum: There is no mediastinal lymphadenopathy. Karon: Not well assessed without IV contrast. Axillae: There is no axillary lymphadenopathy. Upper abdomen: There are numerous calcified gallstones. A small hiatal hernia is noted. Skeletal structures: The skeletal structures are osteopenic. No lytic or blastic bony lesions are see n. Spondylotic change is seen throughout the spine. IMPRESSION: 1. Cardiomegaly and emphysema. 2. There is airspace consolidation at the left lung base. Additionally, there is secretions/debris wi thin the left mainstem bronchus and throughout the left lower lobe airways. The appearance is typical for pneumonia/aspiration pneumonitis. Clinical correlation will be required. Consider a three-month follow-up chest CT to document resolution. 3. The right lung appears clear. 4. Cholelithiasis. 5. Additional findings as above. ACT 112: Negative or not required by law. Electronically signed by: Kelechi Choi M.D. 08/10/2022 5:54 PM
[2022-08-10] MEDS: CEFEPIME 2,000 MG in SYRINGE 0 ML IV SCH (20:01)
[2022-08-10] MEDS: SIMVASTATIN 20 MG TAB PO SCH (20:02)
[2022-08-11] MEDS: CEFEPIME 2,000 MG in SYRINGE 0 ML IV SCH ×3 (03:00→20:44)
[2022-08-11 07:33] LABS: BUN Creatinine Ratio 33.3 (10-20); C Reactive Protein 4.3 mg/dl (0-0.5); Calcium 8.7 mg/dl (8.5-10.1); Creatinine Clr Calc Pharmacy 120.6 ml/min; Est GFR (African American) 122.3 ml/min; Est GFR (Non-African American) 105.6 ml/min; Potassium 4.2 mmol/L (3.5-5.1)
--- NOTE | 2022-08-11 07:56 | Surgery Progress Note ---
Date of Service August 11, 2022 Assessment & Plan (1) S/P left inguinal hernia repair: Plan: Patient being treated for right-sided pneumonia Left inguinal surgical site stable has davy in place We will continue to follow Admission and Anticipated Discharge Date Admission Date: August 07, 2022 Results & Data ([facility]) Vital Signs (Past 12 Hours) Vital Signs Temp Pulse Resp BP Pulse Ox O2 Del Method 08/11/22 07:43 36.5 C 70 18 120/75 96 Room Air 08/10/22 20:44 36.4 C L 80 16 107/71 92 Room Air PG Care Time/CCT Total # of Minutes Spent Total Time Spent with Patient: Total time spent is greater than 50% in coordination of care (as documented) at patient's floor/unit and/or counseling patient: Coding Level of Care Code None Diagnoses S/P left inguinal hernia repair Z98.890; Z87.19
[2022-08-11] MEDS: ASPIRIN 81 MG ECTAB PO SCH (10:43)
[2022-08-11] MEDS: predniSONE 20 MG TAB PO SCH (10:43)
[2022-08-11] MEDS: DOCUSATE SODIUM/SENNA 50/8.6MG TAB PO SCH ×2 (10:43→20:45)
[2022-08-11] MEDS: PANTOprazole 40 MG TAB PO SCH (10:43)
[2022-08-11] MEDS: MAGNESIUM HYDROXIDE SUSP 30 ML UDC PO SCH ×2 (10:44→20:45)
[2022-08-11] MEDS: SODIUM CHLORIDE 1 GM TABLET PO SCH ×2 (10:46→20:45)
--- NOTE | 2022-08-11 13:59 | Fluoroscopy Report ---
FL video swallow HISTORY: Pneumonia. r/o aspiration TECHNIQUE: Video fluoroscopic evaluation of swallowing was performed in the AP and lateral projection s by the speech pathology staff. The patient is fed nectar-thick and thin liquid barium. FLUOROSCOPY TIME: 2.9 minutes. A cine loop was submitted.. COMPARISON STUDY: None. FINDINGS: The epiglottis appears thickened with a few episodes of incomplete epiglottic deflection. T his likely accounted for the episodes of aspiration. This was improved with chin tuck maneuver. IMPRESSION: 1. A few episodes of aspiration likely due to the thickened epiglottis. 2. Please see the speech pathologist report for detailed findings and recommendations. ACT 112: Negative or not required by law. Electronically signed by: Alexys Stanley M.D. 08/11/2022 1:56 PM
--- NOTE | 2022-08-11 18:08 | Hospitalist Progress Note ---
Date of Service August 11, 2022 Assessment & Plan (1) LLL pneumonia: Plan: likely 2nd to aspiration. LLL pneumonia seen on CT chest last pm. cefepime begun at that time. poor appetite may be due to his pneumonia. cont cefepime. supportive care. O2 sats wnl. (2) Dysphagia: Plan: appreciate speech therapy consultation. video swallow completed - aspirated all consistencies. I discussed this with the patient and his son (latter by phone). speech suggests either permissive aspiration with minced/moist diet + thin liquids VS pureed diet with thins. son leaning towards former. son counseled that his father will likely continue with aspiration events and future pneumonia at times. (3) Incarcerated inguinal hernia: Plan: POD # 4 s/p OPEN LEFT INGUINAL HERNIA REPAIR with Dr Manuel 08/07 No issues at this time pain control (4) CAD in [place] artery: Plan: with a h/o [place] approx age 50-review of old records here from 2000 show sustained an acute inferior wall AL in [facility], was ill for 2days with CP/SOB/N/V and not sought medical help while he was in [facility]. Strong family hx of CAD (mother at 63 from AL and sister had first AL when she was in mid 60s). 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 BMP am would resume NaCL 1gm BID (8) Constipation: Plan: resolved cont bowel regimen (9) Iliac artery aneurysm, bilateral: Plan: noted on prior imaging ASA 81mg + statin can arrange vascular f/u outpatient (10) GERD (gastroesophageal reflux disease): Plan: PPI (11) Hyperlipidemia LDL goal <70: Plan: continue statin (12) BPH loc w urin obs/LUTS: Plan: with hua since last admission, repeat UA w/o infection No further abx provided resume flomax in am urology f/u post-d/c (13) Hypertension: Plan: flomax for BPH will serve as anti-hypertensive as well (14) Diabetes mellitus: Plan: hx of such listed, last A1c only 5.9 just pre-DM follow (15) Severe protein-calorie malnutrition: Plan: 20+ pounds of weight loss last 6-12 months. underlying malignancy? consider outpatient EGD/colonoscopy, cystoscopy given recent hematuria, etc. was a heavy smoker in the past x 50 years. (16) Failure to thrive in adult: Plan: see above Plan patient very weak, requiring considerable assistance PT/OT both advise rehab son wishing to bring his father home will continue to discuss Admission and Anticipated Discharge Date Admission Date: August 07, 2022 Subjective saw patient following his video swallow we discussed the results but he did not seem to understand fully the ramifications of aspiration he denied feeling poorly - just tired continues with some cough eating continues to be poor, with less than 25% of meals consumed (although, by report, did better w/ dinner last pm) denied any other complaints for me Review of Systems Review of Systems: cv - no chest pain pulm - no dyspnea GI - no pain (just pain over inguinal hernia incision) Physical Exam Physical Exam: gen - thin, frail, sitting in chair, NAD, some hearing impairment neck - no JVD mouth - poor dentition, MMM, no lesions heart - RRR, s1 s2 lungs - rales L base, faint end-exp wheeze left side, no increased work of breathing abd - soft NT ND BS+; dressings intact over left groin, no obvious hernia present or bulge ext - no edema, pulses 2+ b/l psych - awake, alert, seems mildly confused Results & Data Results & Data ([facility]) Vital Signs (Past 12 Hours) Vital Signs Temp Pulse Resp BP Pulse Ox O2 Del Method 08/11/22 11:30 36.5 C 88 18 113/67 94 08/11/22 07:43 36.5 C 70 18 120/75 96 Room Air Laboratory Results Laboratory Results - last 24 hr 08/10/22 08/11/22 08/11/22 20:42 06:33 17:01 Sodium 133 L Potassium 4.2 Chloride 99 Carbon Dioxide 26 Anion Gap 8 BUN 16 Creatinine 0.48 L Est Cr Clr Drug Dosing 120.6 Est GFR ( Amer) 122.3 Est GFR (Non-Af Amer) 105.6 BUN/Creatinine Ratio 33.3 H Glucose 100 H POC Glucose 150 H 126 H Calcium 8.7 C-Reactive Protein 4.30 H PG Care Time/CCT Total # of Minutes Spent Total Time Spent with Patient: Total time spent is greater than 50% in coordination of care (as documented) at patient's floor/unit and/or counseling patient: Coding Level of Care Code 98934 Subseq Hosp Care Lvl 2 Diagnoses LLL pneumonia J18.9 Dysphagia R13.10 Incarcerated inguinal hernia K40.30 CAD in [place] artery I25.10 Acute abdominal pain R10.9 Inguinal hernia recurrent unilateral K40.91 Obstruction and gangrene presence: without obstruction or gangrene Hyponatremia E87.1 Constipation K59.00 Constipation type: unspecified constipation type Iliac artery aneurysm, bilateral I72.3 GERD (gastroesophageal reflux disease) K21.9 Hyperlipidemia LDL goal <70 E78.5 BPH loc w urin obs/LUTS N40.1 Hypertension I10 Diabetes mellitus E11.9 Severe protein-calorie malnutrition E43 Failure to thrive in adult R62.7 (1) Inguinal hernia recurrent unilateral Obstruction and gangrene presence: without obstruction or gangrene Qualified Code(s): K40.91 - Unilateral inguinal hernia, without obstruction or gangrene, recurrent (2) Constipation Constipation type: unspecified constipation type Qualified Code(s): K59.00 - Constipation, unspecified
[2022-08-11] MEDS: SIMVASTATIN 20 MG TAB PO SCH (20:45)
[2022-08-12] MEDS: CEFEPIME 2,000 MG in SYRINGE 0 ML IV SCH ×2 (03:58→11:34)
[2022-08-12 06:46] LABS: Bilirubin Urine Negative (Negative); Blood Urine 3+ (Negative); Color Urine Red; Glucose Urine UA Negative (Negative); Ketones Urine 2+ (Negative); Leukocyte Esterase Urine Trace (Negative); Nitrite Urine Negative (Negative); Protein Urine 2+ (Negative); Urobilinogen Urine Negative (Negative); pH Urine 7.5 (4.5-7.5)
[2022-08-12 06:48] LABS: Appearance Urine Cloudy (Clear); RBC Urine >30 /hpf (0-4)
[2022-08-12 07:02] LABS: Bacteria Urine 1+ (Negative)
[2022-08-12] MEDS: SODIUM CHLORIDE 1 GM TABLET PO SCH ×2 (08:29→20:06)
[2022-08-12] MEDS: MAGNESIUM HYDROXIDE SUSP 30 ML UDC PO SCH ×2 (08:29→20:05)
[2022-08-12] MEDS: DOCUSATE SODIUM/SENNA 50/8.6MG TAB PO SCH ×2 (08:29→20:06)
[2022-08-12] MEDS: PANTOprazole 40 MG TAB PO SCH (08:29)
[2022-08-12] MEDS: predniSONE 20 MG TAB PO SCH (08:29)
[2022-08-12 09:27] LABS: Calcium 8.8 mg/dl (8.5-10.1); Creatinine Clr Calc Pharmacy 115.7 ml/min; Est GFR (African American) 120.3 ml/min; Est GFR (Non-African American) 103.8 ml/min; Potassium 3.9 mmol/L (3.5-5.1)
--- NOTE | 2022-08-12 13:17 | Surgery Progress Note ---
Date of Service August 12, 2022 Assessment & Plan (1) S/P left inguinal hernia repair: Plan: surgery available if needed Dr Goodson covering over weekend Admission and Anticipated Discharge Date Admission Date: August 07, 2022 Results & Data ([facility]) Vital Signs (Past 12 Hours) Vital Signs Temp Pulse Resp BP Pulse Ox O2 Del Method 08/12/22 07:56 Room Air 08/12/22 07:43 36.8 C 67 18 124/86 96 Room Air PG Care Time/CCT Total # of Minutes Spent Total Time Spent with Patient: Total time spent is greater than 50% in coordination of care (as documented) at patient's floor/unit and/or counseling patient: Coding Level of Care Code None Diagnoses S/P left inguinal hernia repair Z98.890; Z87.19
[2022-08-12] MEDS: AMPICILLIN/SULBACTAM SOD 1,500 MG in 0.9 % SODIUM CHLORIDE 100 ML IV SCH (18:39)
[2022-08-12] MEDS: SIMVASTATIN 20 MG TAB PO SCH (20:06)
--- NOTE | 2022-08-12 20:14 | Hospitalist Progress Note ---
Date of Service August 12, 2022 Assessment & Plan (1) LLL pneumonia: Plan: likely 2nd to aspiration. LLL pneumonia seen on CT chest 08/10. cefepime begun at that time. thus, today is day #3 of abx. can de-escalate abx to IV unasyn. supportive care. O2 sats wnl. (2) Dysphagia: Plan: appreciate speech therapy consultation. video swallow completed - aspirated all consistencies. speech suggested either permissive aspiration with minced/moist diet + thin liquids VS pureed diet with thins. son opted for minced/moist diet. son was counseled that his father will likely continue with aspiration events and future pneumonia at times. (3) Incarcerated inguinal hernia: Plan: POD # 5 s/p OPEN LEFT INGUINAL HERNIA REPAIR with Dr Manuel 08/07 No issues at this time cont pain control prn (4) CAD in [place] artery: Plan: with a h/o [place] approx age 50-review of old records here from 2000 show sustained an acute inferior wall CO in [facility], was ill for 2days with CP/SOB/N/V and not sought medical help while he was in [facility]. Strong family hx of CAD (mother at 63 from [place] and sister had first CO when she was in mid 60s). 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 Na 136 today BMP am cont NaCL 1gm BID (8) Constipation: Plan: resolved cont bowel regimen (9) Iliac artery aneurysm, bilateral: Plan: noted on prior imaging ASA 81mg + statin can arrange vascular f/u outpatient (10) GERD (gastroesophageal reflux disease): Plan: PPI (11) Hyperlipidemia LDL goal <70: Plan: continue statin (12) BPH loc w urin obs/LUTS: Plan: with hua since last admission, repeat UA w/o infection resume flomax urology f/u post-d/c (13) Hypertension: Plan: flomax for BPH will serve as anti-hypertensive as well (14) Diabetes mellitus: Plan: hx of such listed, last A1c only 5.9 just pre-DM follow (15) Severe protein-calorie malnutrition: Plan: 20+ pounds of weight loss last 6-12 months. underlying malignancy? consider outpatient EGD/colonoscopy, cystoscopy given recent hematuria, etc. was a heavy smoker in the past x 50 years. (16) Failure to thrive in adult: Plan: see above (17) Gross hematuria: Plan: recurrent due to hua trauma? bladder ca? UTI? other? urine cx pending urine cytologies negative maintain hua will need cysto as outpatient to r/o malignancy Plan patient very weak, requiring considerable assistance PT/OT both advise rehab son wishing to bring his father home still will continue to discuss day to day Admission and Anticipated Discharge Date Admission Date: August 07, 2022 Subjective patient endorses fatigue during the visit son at bedside eating poor-fair today -- son says it is similar to how much he takes in at home cough unchanged no dyspnea had gross hematuria overnight but catheter draining without issue denies abd pain no new issues other than hematuria - he has had such in the past Review of Systems Review of Systems: gen - fatigue, poor appetite continue cv - no cp pulm - mild sputum production GI - no nausea / emesis Physical Exam Physical Exam: gen - thin, frail, laying in bed, falling asleep as we were talking neck - no JVD mouth - poor dentition, MMM, no lesions heart - RRR, s1 s2, no murmur lungs - rales L base, otherwise CTA b/l ; no increased work of breathing abd - soft NT ND BS+; dressings intact over left groin, no obvious recurrent hernia present or bulge ext - no edema, pulses 2+ b/l psych - sleepy today Results & Data Results & Data ([facility]) Vital Signs (Past 12 Hours) Vital Signs Temp Pulse Resp BP Pulse Ox O2 Del Method 08/12/22 20:07 36.3 C L 75 18 124/73 94 Room Air 08/12/22 15:11 36.6 C 78 14 102/66 94 Room Air Laboratory Results Laboratory Results - last 24 hr 08/11/22 08/12/22 08/12/22 20:54 05:55 07:43 Sodium 136 Potassium 3.9 Chloride 102 Carbon Dioxide 28 Anion Gap 6 BUN 16 Creatinine 0.50 L Est Cr Clr Drug Dosing 115.7 Est GFR ( Amer) 120.3 Est GFR (Non-Af Amer) 103.8 BUN/Creatinine Ratio 32.0 H Glucose 114 H POC Glucose 129 H Calcium 8.8 Procalcitonin Urine Color Red Urine Appearance Cloudy A Urine pH 7.5 Ur Specific Renner 1.020 Urine Protein 2+ H Urine Glucose (UA) Negative Urine Ketones 2+ H Urine Blood 3+ H Urine Nitrite Negative Urine Bilirubin Negative Urine Urobilinogen Negative Ur Leukocyte Esterase Trace H Urine RBC >30 H Urine WBC 10-30 H Ur Epithelial Cells 5-10 H Urine Bacteria 1+ H 08/12/22 08/12/22 08/12/22 08:00 10:46 12:06 Sodium Potassium Chloride Carbon Dioxide Anion Gap BUN Creatinine Est Cr Clr Drug Dosing Est GFR ( Amer) Est GFR (Non-Af Amer) BUN/Creatinine Ratio Glucose POC Glucose 112 H 168 H Calcium Procalcitonin < 0.05 Urine Color Urine Appearance Urine pH Ur Specific Renner Urine Protein Urine Glucose (UA) Urine Ketones Urine Blood Urine Nitrite Urine Bilirubin Urine Urobilinogen Ur Leukocyte Esterase Urine RBC Urine WBC Ur Epithelial Cells Urine Bacteria 08/12/22 17:27 Sodium Potassium Chloride Carbon Dioxide Anion Gap BUN Creatinine Est Cr Clr Drug Dosing Est GFR ( Amer) Est GFR (Non-Af Amer) BUN/Creatinine Ratio Glucose POC Glucose 141 H Calcium Procalcitonin Urine Color Urine Appearance Urine pH Ur Specific Renner Urine Protein Urine Glucose (UA) Urine Ketones Urine Blood Urine Nitrite Urine Bilirubin Urine Urobilinogen Ur Leukocyte Esterase Urine RBC Urine WBC Ur Epithelial Cells Urine Bacteria PG Care Time/CCT Total # of Minutes Spent Total Time Spent with Patient: Total time spent is greater than 50% in coordination of care (as documented) at patient's floor/unit and/or counseling patient: Coding Level of Care Code 32157 Subseq Hosp Care Lvl 2 Diagnoses LLL pneumonia J18.9 Dysphagia R13.10 Incarcerated inguinal hernia K40.30 CAD in [place] artery I25.10 Acute abdominal pain R10.9 Inguinal hernia recurrent unilateral K40.91 Obstruction and gangrene presence: without obstruction or gangrene Hyponatremia E87.1 Constipation K59.00 Constipation type: unspecified constipation type Iliac artery aneurysm, bilateral I72.3 GERD (gastroesophageal reflux disease) K21.9 Hyperlipidemia LDL goal <70 E78.5 BPH loc w urin obs/LUTS N40.1 Hypertension I10 Diabetes mellitus E11.9 Severe protein-calorie malnutrition E43 Failure to thrive in adult R62.7 Gross hematuria R31.0 (1) Inguinal hernia recurrent unilateral Obstruction and gangrene presence: without obstruction or gangrene Qualified Code(s): K40.91 - Unilateral inguinal hernia, without obstruction or gangrene, recurrent (2) Constipation Constipation type: unspecified constipation type Qualified Code(s): K59.00 - Constipation, unspecified
[2022-08-13] MEDS: AMPICILLIN/SULBACTAM SOD 1,500 MG in 0.9 % SODIUM CHLORIDE 100 ML IV SCH ×5 (00:26→23:13)
--- NOTE | 2022-08-13 01:38 | Communication Note ---
Date of Service: August 13, 2022 Notified of hematuria w/ clots in hua bag. Nursing attempted irrigation. No clots obtained per manual irrigation. Previous UA did show 3+ blood and mi croscopy had been performed. differential of gross hematuria w/ clots: nephrolithiasis, prostate obstruction, hua trauma, UTI, glomerulonephritis (less likely) Patient is being treated w/ abx for pneumonia, zosyn->unasyn. If deciding to cover UTI, review urine culture sensitivities when resulted. Per dayshift note, planning to f/u w/ outpatient urology for bph w/ LUTs and recent need/use of hua since last hospital admission. Can ask outpatient urology to follow up the hematuria/clots.
[2022-08-13 06:35] LABS: Hemoglobin 15.1 g/dl (14.0-18.0); Mean Corpuscular Hemoglobin 31.9 pg (25.0-34.0); Mean Corpuscular Hgb Conc 34.3 g/dL (32.0-36.0); Mean Platelet Volume 9.4 fL (9.4-12.4); Platelet Count 231 K/uL (130-400); RDW Coefficient of Variation 13.2 % (11.5-14.5); RDW Standard Deviation 45.5 fL (36.4-46.3); Red Blood Count 4.73 M/uL (4.63-6.08); White Blood Count 7.85 K/ul (4.8-10.8)
[2022-08-13 06:56] LABS: BUN Creatinine Ratio 31.3 (10-20); Calcium 8.6 mg/dl (8.5-10.1); Creatinine Clr Calc Pharmacy 120.6 ml/min; Est GFR (African American) 122.3 ml/min; Est GFR (Non-African American) 105.6 ml/min; Potassium 3.7 mmol/L (3.5-5.1)
[2022-08-13] MEDS: DOCUSATE SODIUM/SENNA 50/8.6MG TAB PO SCH (08:18)
[2022-08-13] MEDS: MAGNESIUM HYDROXIDE SUSP 30 ML UDC PO SCH (08:18)
[2022-08-13] MEDS: PANTOprazole 40 MG TAB PO SCH (09:10)
[2022-08-13] MEDS: SODIUM CHLORIDE 1 GM TABLET PO SCH ×2 (09:10→21:33)
[2022-08-13] MEDS: predniSONE 20 MG TAB PO SCH (09:10)
[2022-08-13] MEDS: TAMSULOSIN HCL 0.4 MG CAP PO SCH (10:07)
--- NOTE | 2022-08-13 19:38 | Hospitalist Progress Note ---
Date of Service August 13, 2022 Assessment & Plan (1) LLL pneumonia: Plan: likely 2nd to aspiration. LLL pneumonia seen on CT chest 08/10. cefepime begun at that time. thus, today is day #4 of abx. de-escalated abx to IV unasyn yesterday. cont unasyn; consider changing to PO augmentin next 1-2 days depending on labs (crp, etc). supportive care. O2 sats wnl. (2) Dysphagia: Plan: appreciate speech therapy consultation. video swallow completed - aspirated all consistencies. speech suggested either permissive aspiration with minced/moist diet + thin liquids VS pureed diet with thins. son opted for minced/moist diet. son was counseled that his father will likely continue with aspiration events and future pneumonia at times. (3) Incarcerated inguinal hernia: Plan: POD # 6 s/p OPEN LEFT INGUINAL HERNIA REPAIR with Dr Manuel 08/07 No issues at this time No pain (4) CAD in [place] artery: Plan: with a h/o [place] approx age 50-review of old records here from 2000 show sustained an acute inferior wall [place] in [facility], was ill for 2days with CP/SOB/N/V and not sought medical help while he was in [facility]. Strong family hx of CAD (mother at 63 from [place] and sister had first [place] when she was in mid 60s). 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 BMP am cont NaCL 1gm BID (8) Constipation: Plan: resolved cont bowel regimen (9) Iliac artery aneurysm, bilateral: Plan: noted on prior imaging ASA 81mg + statin can arrange vascular f/u outpatient (10) GERD (gastroesophageal reflux disease): Plan: PPI (11) Hyperlipidemia LDL goal <70: Plan: continue statin (12) BPH loc w urin obs/LUTS: Plan: with hua since last admission, repeat UA w/o infection resumed flomax urology f/u needed if desired by family (13) Hypertension: Plan: flomax for BPH will serve as anti-hypertensive as well (14) Diabetes mellitus: Plan: hx of such listed, last A1c only 5.9 just pre-DM follow (15) Severe protein-calorie malnutrition: Plan: 20+ pounds of weight loss last 6-12 months. underlying malignancy? consider outpatient EGD/colonoscopy, cystoscopy given recent hematuria, etc. was a heavy smoker in the past x 50 years. I am most concerned about a bladder malignancy given his intermittent hematuria in the absence of UTI If bladder ca is present this may explain his faliure to thrive Urine cytologies negative, but this does not rule out bladder ca cysto while hospitalized? pursue palliative care? (16) Failure to thrive in adult: Plan: see above despite several days of low-dose prednisone he continues with poor appetite, lassitude, etc (17) Gross hematuria: Plan: recurrent due to hua trauma? bladder ca? UTI? other? urine cx negative urine cytologies negative maintain hua will need cysto if desired by family Plan patient very weak, requiring considerable assistance PT/OT both advise rehab son wishing to bring his father home still - hospice given no improvement?? I called & spoke with son Jerzy Shared my concerns of his ongoing failure to thrive and lack of improvement He, too, is concerned I explained that I am worried he could have underlying malignancy We will need to discuss further whether to pursue Rx or transition to palliative care Admission and Anticipated Discharge Date Admission Date: August 07, 2022 Subjective patient very sleepy during the visit in fact he fell asleep while I was speaking with him he has had poor appetite throughout the day unable to elicit any meaningful history or ROS due to lethargy/sleepiness continues with gross hematuria in hua Review of Systems Review of Systems: Unobtainable due to cognitive status Physical Exam Physical Exam: gen - thin, frail, laying in bed, falling asleep as we were talking (similar to yesterday) neck - no JVD mouth - poor dentition, MMM, no lesions heart - RRR, s1 s2, no murmur lungs - CTA b/l, decreased BS L base abd - soft NT ND BS+; dressings intact over left groin ext - no edema, pulses 2+ b/l psych - sleepy, answered a few questions then fell asleep Results & Data Results & Data ([facility]) Vital Signs (Past 12 Hours) Vital Signs Temp Pulse Resp BP Pulse Ox O2 Del Method 08/13/22 14:24 36.6 C 69 14 122/72 97 Room Air 08/13/22 08:00 Room Air Laboratory Results Laboratory Results - last 24 hr 08/13/22 08/13/22 06:05 06:05 WBC 7.85 RBC 4.73 Hgb 15.1 Hct 44.0 MCV 93.0 MCH 31.9 MCHC 34.3 RDW Std Deviation 45.5 RDW Coeff of Andria 13.2 Plt Count 231 MPV 9.4 Sodium 138 Potassium 3.7 Chloride 104 Carbon Dioxide 29 Anion Gap 5 BUN 15 Creatinine 0.48 L Est Cr Clr Drug Dosing 120.6 Est GFR ( Amer) 122.3 Est GFR (Non-Af Amer) 105.6 BUN/Creatinine Ratio 31.3 H Glucose 122 H Calcium 8.6 PG Care Time/CCT Total # of Minutes Spent Total Time Spent with Patient: Total time spent is greater than 50% in coordination of care (as documented) at patient's floor/unit and/or counseling patient: Coding Level of Care Code 23140 Subseq Hosp Care Lvl 2 Diagnoses LLL pneumonia J18.9 Dysphagia R13.10 Incarcerated inguinal hernia K40.30 CAD in [place] artery I25.10 Acute abdominal pain R10.9 Inguinal hernia recurrent unilateral K40.91 Obstruction and gangrene presence: without obstruction or gangrene Hyponatremia E87.1 Constipation K59.00 Constipation type: unspecified constipation type Iliac artery aneurysm, bilateral I72.3 GERD (gastroesophageal reflux disease) K21.9 Hyperlipidemia LDL goal <70 E78.5 BPH loc w urin obs/LUTS N40.1 Hypertension I10 Diabetes mellitus E11.9 Severe protein-calorie malnutrition E43 Failure to thrive in adult R62.7 Gross hematuria R31.0 (1) Inguinal hernia recurrent unilateral Obstruction and gangrene presence: without obstruction or gangrene Qualified Code(s): K40.91 - Unilateral inguinal hernia, without obstruction or gangrene, recurrent (2) Constipation Constipation type: unspecified constipation type Qualified Code(s): K59.00 - Constipation, unspecified
[2022-08-13] MEDS: SIMVASTATIN 20 MG TAB PO SCH (21:33)
[2022-08-14 06:15] LABS: C Reactive Protein 0.53 mg/dl (0-0.5); Calcium 8.9 mg/dl (8.5-10.1); Creatinine Clr Calc Pharmacy 137.8 ml/min; Est GFR (African American) 129.2 ml/min; Est GFR (Non-African American) 111.5 ml/min; Potassium 3.7 mmol/L (3.5-5.1)
[2022-08-14] MEDS: AMPICILLIN/SULBACTAM SOD 1,500 MG in 0.9 % SODIUM CHLORIDE 100 ML IV SCH (06:15)
[2022-08-14] MEDS: PANTOprazole 40 MG TAB PO SCH (09:37)
[2022-08-14] MEDS: predniSONE 20 MG TAB PO SCH (09:37)
[2022-08-14] MEDS: SODIUM CHLORIDE 1 GM TABLET PO SCH ×2 (09:38→20:13)
[2022-08-14] MEDS: TAMSULOSIN HCL 0.4 MG CAP PO SCH (09:38)
[2022-08-14] MEDS: ADVANCED PROBIOTIC 1250 MG CAPSULE PO SCH (09:40)
[2022-08-14] MEDS: AMOXICILLIN/CLAVULANATE 875 MG TAB PO SCH (17:19)
[2022-08-14] MEDS: SIMVASTATIN 20 MG TAB PO SCH (20:13)
--- NOTE | 2022-08-15 06:45 | Surgery Progress Note ---
Date of Service August 15, 2022 Assessment & Plan (1) S/P left inguinal hernia repair: Plan: We will remove every other staple Placed Steri-Strips at the staple site Leave remaining davy until next week Admission and Anticipated Discharge Date Admission Date: August 07, 2022 Results & Data ([facility]) Vital Signs (Past 12 Hours) Vital Signs Temp Pulse Resp BP Pulse Ox O2 Del Method 08/14/22 19:50 Room Air 08/14/22 20:12 36.5 C 70 16 125/79 96 Room Air PG Care Time/CCT Total # of Minutes Spent Total Time Spent with Patient: Total time spent is greater than 50% in coordination of care (as documented) at patient's floor/unit and/or counseling patient: Coding Level of Care Code None Diagnoses S/P left inguinal hernia repair Z98.890; Z87.19
[2022-08-15] MEDS: ADVANCED PROBIOTIC 1250 MG CAPSULE PO SCH (08:55)
[2022-08-15] MEDS: predniSONE 20 MG TAB PO SCH (08:55)
[2022-08-15] MEDS: AMOXICILLIN/CLAVULANATE 875 MG TAB PO SCH ×2 (08:55→18:06)
[2022-08-15] MEDS: SODIUM CHLORIDE 1 GM TABLET PO SCH ×2 (08:55→20:25)
[2022-08-15] MEDS: TAMSULOSIN HCL 0.4 MG CAP PO SCH (08:55)
[2022-08-15] MEDS: PANTOprazole 40 MG TAB PO SCH (08:55)
--- NOTE | 2022-08-15 09:57 | Hospitalist Progress Note ---
Date of Service August 14, 2022 Assessment & Plan (1) LLL pneumonia: Plan: likely 2nd to aspiration. LLL pneumonia seen on CT chest 08/10. cefepime begun at that time the changed to unasyn 2 days ago. today is day #5 of abx. change to augmentin PO x 3 days then stop all abx. despite Rx of pneumonia NO change in his overall status (2) Dysphagia: Plan: appreciate speech therapy consultation. video swallow completed - aspirated all consistencies. speech suggested either permissive aspiration with minced/moist diet + thin liquids VS pureed diet with thins. son opted for minced/moist diet. son was counseled that his father will likely continue with aspiration events and future pneumonia at times. (3) Incarcerated inguinal hernia: Plan: POD # 7 s/p OPEN LEFT INGUINAL HERNIA REPAIR with Dr Manuel 08/07 No issues at this time No pain (4) CAD in [place] artery: Plan: with a h/o [place] approx age 50-review of old records here from 2000 show sustained an acute inferior wall [place] in [facility], was ill for 2days with CP/SOB/N/V and not sought medical help while he was in [facility]. Strong family hx of CAD (mother at 63 from [place] and sister had first [place] when she was in mid 60s). 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 BMP am cont NaCL 1gm BID (8) Constipation: Plan: resolved cont bowel regimen (9) Iliac artery aneurysm, bilateral: Plan: noted on prior imaging ASA 81mg + statin can arrange vascular f/u outpatient (10) GERD (gastroesophageal reflux disease): Plan: PPI (11) Hyperlipidemia LDL goal <70: Plan: continue statin (12) BPH loc w urin obs/LUTS: Plan: with hua since last admission, repeat UA w/o infection resumed flomax urology f/u needed if desired by family (13) Hypertension: Plan: flomax for BPH will serve as anti-hypertensive as well (14) Diabetes mellitus: Plan: hx of such listed, last A1c only 5.9 just pre-DM follow (15) Severe protein-calorie malnutrition: Plan: 20+ pounds of weight loss last 6-12 months. underlying malignancy? consider outpatient EGD/colonoscopy, cystoscopy given recent hematuria, etc. was a heavy smoker in the past x 50 years. I am most concerned about a bladder malignancy given his intermittent hematuria in the absence of UTI If bladder ca is present this may explain his faliure to thrive Urine cytologies negative, but this does not rule out bladder ca cysto while hospitalized? pursue palliative care? we discussed consulting palliative care rather than pursuing more w/u will consult palliative in am tomorrow son in agreement with this (16) Failure to thrive in adult: Plan: see above severe despite several days of low-dose prednisone he continues with poor appetite, lassitude, etc will wean this off next few days (17) Gross hematuria: Plan: recurrent due to hua trauma? bladder ca? other? urine cx negative urine cytologies negative maintain hua ultimately would have needed cystoscopy but instead will ask palliative care to refine goals of care Plan patient very weak, requiring considerable assistance SEVERE failure to thrive no improvement over the last week in overall well-being son wishing to bring his father home still - hospice given no improvement?? palliative care consultation in am Admission and Anticipated Discharge Date Admission Date: August 07, 2022 Subjective no new issues barely ate or drank anything today much like the last few days spending most of the day in bed family (son, son's SO at bedside) he denies any new complaints Review of Systems Review of Systems: gen - fatigued, sleepy cv - no cp, no orthopnea pulm - intermittent cough, no dyspnea GI - no pain - hua in place, hematuria resolved today psych - admits to depression Physical Exam Physical Exam: gen - thin, frail, laying in bed comfortably neck - no JVD mouth - poor dentition, MMM, no lesions heart - RRR, s1 s2, no murmur lungs - CTA b/l, decreased BS L base abd - soft NT ND BS+; dressings intact over left groin ext - no edema, pulses 2+ b/l psych - flat affect Results & Data Results & Data ([facility]) Vital Signs (Past 12 Hours) Vital Signs Temp Pulse Resp BP Pulse Ox O2 Del Method 08/15/22 07:43 36.8 C 75 17 129/77 96 Room Air PG Care Time/CCT Total # of Minutes Spent Total Time Spent with Patient: Total time spent is greater than 50% in coordination of care (as documented) at patient's floor/unit and/or counseling patient: Coding Level of Care Code 98958 Subseq Hosp Care Lvl 2 Diagnoses LLL pneumonia J18.9 Dysphagia R13.10 Incarcerated inguinal hernia K40.30 CAD in [place] artery I25.10 Acute abdominal pain R10.9 Inguinal hernia recurrent unilateral K40.91 Obstruction and gangrene presence: without obstruction or gangrene Hyponatremia E87.1 Constipation K59.00 Constipation type: unspecified constipation type Iliac artery aneurysm, bilateral I72.3 GERD (gastroesophageal reflux disease) K21.9 Hyperlipidemia LDL goal <70 E78.5 BPH loc w urin obs/LUTS N40.1 Hypertension I10 Diabetes mellitus E11.9 Severe protein-calorie malnutrition E43 Failure to thrive in adult R62.7 Gross hematuria R31.0 (1) Inguinal hernia recurrent unilateral Obstruction and gangrene presence: without obstruction or gangrene Qualified Code(s): K40.91 - Unilateral inguinal hernia, without obstruction or gangrene, recurrent (2) Constipation Constipation type: unspecified constipation type Qualified Code(s): K59.00 - Constipation, unspecified
--- NOTE | 2022-08-15 15:32 | Palliative Care Consultation ---
Date of Consultation August 15, 2022 Assessment & Plan (1) Dysphagia: We discussed aspiration risk and permissive aspiration. He is aware of risk, as his son, Malcolm, who is at bedside. He and his family are in agreement with permissive aspiration for his quality of life. Continue pureed diet and aspirat ion precautions. (2) Failure to thrive in adult: Possible underlying malignancy. No malignancy on CT of head, abdomen, pelvis or chest. He does have intermittent hematuria, concerning for urothelial cancer. Family is aware of this and have opted against further workup or treatment. (3) Palliative care encounter: I talked with Mr. Marcial and his son, Malcolm, at bedside. He has limited understanding of his illness but his son, is aware. They showed me an advance directive which indicates that Mr. Marcial would not want resuscitation, art ificial feeding, surgery or any intervention short of hydration if he were in a terminal or vegetative state. I asked him what brings meaning to his life and he said that being with family is the most important thing to him and defines whether life is worth living for him. He has not been able to enjoy the social activities that he has enjoyed in the past. We discussed concerns that his health will continue to decline with limited po intake and risk of aspiration. He understands this and says that he would prefer not to return to the hospital. He would prefer to focus on quality of life and symptom management to have quality time with his family. He denies fears or worries about his dying time. When I asked him where he would want to be at his dying time, he told me he wanted to be in the hospital. As we explored that further, it appears that he said that because he is concerned about being a burden to his family. We discussed option of hospice care at home to support family and assist with symptom management. His son, Malcolm, lives with him and tells me that he is prepared to care for him at home. However, the home is in some disrepair and not well set up for someone with limited mobility. They are considering SNF placement. Actually, Mr. Marcial would prefer SNF placement to minimize the burden to his family. He is a [place] and has considered a [facility] facility. Unfortunately, there are no VA SNF facilities in the immediate area. Discussed with case management who will work with them on placement. Despite advance directive indicating no life prolonging measures, Mr. Marcial is full code. Though we did discuss his preference for quality of life over quantity, we did not specifically address code status and he was visibly fatigued and overwhelmed with conversation. Will follow up on that tomorrow. History of Present Illness Reason for Consultation: goals of care Requesting Physician: Dr. Nelson Attending Physician: Brooks Nelson History of Present Illness 77 yo gentleman with history of CAD, prediabetes, hyponatremia, BPH and bilateral iliac artery aneurysm. He presented with LLQ abdominal pain and was found to have an incarcerated inguinal hernia. He is s/p left inguinal hernia repair with Dr. Manuel. He has also been diagnosed with aspiration pneumonia during hospitalization and found to have awais aspiration with thin and nectar thick liquids as well as silent aspiration of additional consistencies. He is on pureed diet with aspiration precautions. He denies coughing or choking with food or liquids. He denies pain or dyspnea and tells me that overall he feels good. His son tells me that over the last month he has had poor appetite and progressive weakness. He had been able to ambulate with a cane, then a walker, then needed assistance with a walker, over the course of a month prior to admission. He has also had a 12lb weight loss during that time. He did have confusion prior to admission. He is oriented and has a limited understanding of his illness but is able to follow the conversation. Allergies Allergy/AdvReac Type Severity Reaction Status Date / Time No Known Allergies Allergy Verified 08/07/22 08:38 Home Medications Medication Instructions Recorded Confirmed Type omeprazole 20 mg tablet,delayed 20 mg PO QPM 07/27/22 08/07/22 History release tamsulosin 0.4 mg capsule (Flomax) 0.4 mg PO DAILY 07/27/22 08/07/22 History food supplemt, lactose-reduced 1 ea PO DAILY 07/28/22 08/07/22 History (Ensure oral liquid) nicotine (polacrilex) 4 mg buccal 4 mg buccal DIRECTED PRN 07/28/22 08/07/22 History lozenge SMOKING SESSATION nitroglycerin 0.3 mg sublingual 0.3 mg sublingual DIRECTED PRN 07/28/22 08/07/22 History tablet (Nitrostat) Chest Pain simvastatin 40 mg tablet 20 mg PO HS 07/28/22 08/07/22 History sodium chloride 1 gram tablet 1 g PO TID #90 tabs 07/31/22 08/07/22 Rx cephalexin 500 mg capsule 500 mg PO BID 08/04/22 08/07/22 History Saccharomyces boulardii 250 mg 250 mg PO BID #20 caps 08/05/22 08/07/22 Rx capsule (Florastor) cefdinir 300 mg capsule 300 mg PO BID 10 days #20 caps 08/05/22 08/07/22 Rx lactulose 20 gram/30 mL oral 20 g (30 mL) PO DAILY PRN 08/05/22 08/07/22 Rx solution constipation #1,200 mL Patient History Medical History BPH loc w urin obs/LUTS CAD in [place] artery Diabetes mellitus GERD (gastroesophageal reflux disease) Hyperlipidemia LDL goal <70 Hypertension Iliac artery aneurysm, bilateral Surgical History No pertinent past surgical history S/P left inguinal hernia repair (08/07/22) Open left inguinal hernia repair. Dr. Manuel 08/07/2022 Family History Other Coronary heart disease Stroke Social History Smoking Status: Current every day smoker Tobacco Type: Cigarettes Cigarettes Per Day: 15-20; Hx Alcohol Use: No Hx Substance Use: No Preferred Language: Hungarian Communication Ability: Effective Editor At Large Required: No Beliefs That Will Affect Care: None Current Living Situation: Family Current Living Situation Comment: Lives with son Other Information That Helps Us Care for You: No Feels Safe at Home: Yes Assistive Devices: Cane and Walker Review of Systems Review of Systems: ESAS Pain 0/3 Dyspnea 0/3 Nausea 0/3 Fatigue 2/3 PPS 40% Physical Exam Constitutional: + thin and + frail appearing ENMT: Mouth: oral mucous membranes not dry Respiratory: normal respiratory effort; no labored breathing Cardiovascular: Rate/Rhythm: regular rate and regular rhythm Musculoskeletal: Extremities: + muscle atrophy Neurologic: awake; no focal motor deficits Results & Data ([facility]) Vital Signs (Past 12 Hours) Vital Signs Temp Pulse Resp BP Pulse Ox O2 Del Method 08/15/22 11:49 98.1 F 85 17 122/78 95 Room Air 08/15/22 07:43 98.2 F 75 17 129/77 96 Room Air PG Care Time/CCT Total # of Minutes Spent Total Time Spent: 72 Total Time Spent with Patient: Total time spent is greater than 50% in coordination of care (as documented) at patient's floor/unit and/or counseling patient:goals of care, hospice, prognosis, patient and family education and support Coding Level of Care Code 72195 Initial Inpt Care Lvl 3 Diagnoses Dysphagia R13.10 Failure to thrive in adult R62.7 Palliative care encounter Z51.5
--- NOTE | 2022-08-15 19:49 | Hospitalist Progress Note ---
Date of Service August 15, 2022 Assessment & Plan (1) LLL pneumonia: Plan: likely 2nd to aspiration. LLL pneumonia seen on CT chest 08/10. initially on cefepime--> then unasyn-->now augmentin today is day #6 of abx. finish the course after 7 days despite Rx of pneumonia absolutely NO change in his overall status (2) Dysphagia: Plan: appreciate speech therapy consultation. video swallow completed - aspirated all consistencies. speech suggested either permissive aspiration with minced/moist diet + thin liquids VS pureed diet with thins. son opted for minced/moist diet. son was counseled that his father will likely continue with aspiration events and future pneumonia at times. (3) Incarcerated inguinal hernia: Plan: POD # 8 s/p OPEN LEFT INGUINAL HERNIA REPAIR with Dr Manuel 08/07 No issues at this time No pain (4) CAD in [place] artery: Plan: with a h/o [place] approx age 50-review of old records here from 2000 show sustained an acute inferior wall [place] in [facility], was ill for 2days with CP/SOB/N/V and not sought medical help while he was in [facility]. Strong family hx of CAD (mother at 63 from [place] and sister had first [place] when she was in mid 60s). 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 most recent Na wnl cont NaCL 1gm BID (8) Constipation: Plan: resolved cont bowel regimen (9) Iliac artery aneurysm, bilateral: Plan: noted on prior imaging no Rx (10) GERD (gastroesophageal reflux disease): Plan: PPI (11) Hyperlipidemia LDL goal <70: Plan: stop statin (12) BPH loc w urin obs/LUTS: Plan: with hua since last admission, repeat UA w/o infection resumed flomax but likely can d/c since he will continue with hua indefinitely (13) Hypertension: (14) Diabetes mellitus: Plan: hx of such listed, last A1c only 5.9 just pre-DM no Rx (15) Severe protein-calorie malnutrition: Plan: 20+ pounds of weight loss last 6-12 months. underlying malignancy? would need outpatient EGD/colonoscopy, cystoscopy given recent hematuria, etc. was a heavy smoker in the past x 50 years. son mentioned that the [facility] recently discovered what sounds like MGUS?? I am most concerned about a bladder malignancy given his intermittent hematuria in the absence of UTI If bladder ca is present this may explain his faliure to thrive Urine cytologies negative, but this does not rule out bladder ca CT chest/abd/pelvis recently without obvious malignancy patient now has not eaten or drank in 6-7 days or longer on some days he has no food intake this has been despite use of low-dose prednisone for 5+ days and treating his LLL pneumonia could consider remeron palliative care discussions initiated last few days formal palliative care consult completed today plan is SNF placement with hospice will make social work aware (16) Failure to thrive in adult: Plan: see above severe despite several days of low-dose prednisone he continues with poor appetite, lassitude, etc will stop prednisone since it has not been helpful (17) Gross hematuria: Plan: recurrent due to hua trauma? bladder ca? other? urine cx negative urine cytologies negative maintain hua ultimately would have needed cystoscopy but instead transitioning to palliative care pathway/hospice Plan dispo - will need SNF placement with plans for hospice son extensively updated at bedside today Admission and Anticipated Discharge Date Admission Date: August 07, 2022 Subjective no new issues patient with nearly zero oral intake for 4-5th day in a row UOP very little sleeping much of the day, with periods of being awake and talking with family/friends palliative care met with patient and son discussed goals of care plan moving forward is SNF with hospice son wanted to bring him home, but son concerned his home would not be able to accommodate his father that well during my visit patient slept nearly the entire time he awoke to say he was "ok" and that he was not in pain quickly went back to sleep son asked about cystoscopy for the hematuria - we discussed not pursuing such in light of transitioning to hospice even if pursued, and if a malignancy was found, he would be unable to complete Rx due to severe failure to thrive and malnutrition Review of Systems Review of Systems: Unobtainable due to cognitive status Physical Exam Physical Exam: gen - thin, frail, laying in bed sleeping neck - no JVD mouth - MM slightly dry heart - RRR, s1 s2, no murmur lungs - CTA b/l abd - soft NT ND BS+; left groin incision clean, remaining davy intact ext - no edema, pulses 2+ b/l psych - flat affect, low-pitched voice Results & Data Results & Data ([facility]) Vital Signs (Past 12 Hours) Vital Signs Temp Pulse Pulse Resp BP Pulse Ox O2 Del Method 08/15/22 15:41 36.6 C 86 14 96/63 L 95 Room Air 08/15/22 11:49 36.7 C 85 17 122/78 95 Room Air PG Care Time/CCT Total # of Minutes Spent Total Time Spent with Patient: Total time spent is greater than 50% in coordination of care (as documented) at patient's floor/unit and/or counseling patient: Coding Level of Care Code 67554 Subseq Hosp Care Lvl 2 Diagnoses LLL pneumonia J18.9 Dysphagia R13.10 Incarcerated inguinal hernia K40.30 CAD in [place] artery I25.10 Acute abdominal pain R10.9 Inguinal hernia recurrent unilateral K40.91 Obstruction and gangrene presence: without obstruction or gangrene Hyponatremia E87.1 Constipation K59.00 Constipation type: unspecified constipation type Iliac artery aneurysm, bilateral I72.3 GERD (gastroesophageal reflux disease) K21.9 Hyperlipidemia LDL goal <70 E78.5 BPH loc w urin obs/LUTS N40.1 Hypertension I10 Diabetes mellitus E11.9 Severe protein-calorie malnutrition E43 Failure to thrive in adult R62.7 Gross hematuria R31.0 (1) Inguinal hernia recurrent unilateral Obstruction and gangrene presence: without obstruction or gangrene Qualified Code(s): K40.91 - Unilateral inguinal hernia, without obstruction or gangrene, recurrent (2) Constipation Constipation type: unspecified constipation type Qualified Code(s): K59.00 - Constipation, unspecified
[2022-08-15] MEDS: SIMVASTATIN 20 MG TAB PO SCH (20:25)
[2022-08-15] MEDS: ACETAMINOPHEN 325 MG TAB PO PRN (23:25)
[2022-08-16] MEDS: TAMSULOSIN HCL 0.4 MG CAP PO SCH (08:39)
[2022-08-16] MEDS: SODIUM CHLORIDE 1 GM TABLET PO SCH ×2 (08:39→21:48)
[2022-08-16] MEDS: AMOXICILLIN/CLAVULANATE 875 MG TAB PO SCH (08:39)
[2022-08-16] MEDS: PANTOprazole 40 MG TAB PO SCH (08:40)
[2022-08-16] MEDS: ADVANCED PROBIOTIC 1250 MG CAPSULE PO SCH (08:40)
--- NOTE | 2022-08-16 13:42 | Palliative Care Progress Note ---
Date of Service August 16, 2022 Assessment & Plan (1) Dysphagia: Plan: With aspiration of multiple consistencies. He and his family have agreed to permissive aspiration for comfort. (2) Palliative care encounter: Plan: I briefly reviewed discussion from yesterday about goals of care with decision to focus on comfort and symptom management. We also discussed discrepancy with full code. Mr. Marcial deferred that decision to his son, Jerzy. I spoke with Jerzy on the phone. We reviewed what would be involved in full code for resuscitation as well as statistical likelihood that Mr. Marcial would not have less than 5% chance of successful resuscitation to the point of being at his current functional status. Jerzy is tearful but does not want his father to suffer. I assured him that code status only applies to cardiopulmonary arrest and does not impact his father's day to day care. He would like to discuss this with his brother as well but requested change of code status to DNR/DNI which was completed. Admission and Anticipated Discharge Date Admission Date: August 07, 2022 Subjective Sleeping. Easily arousable. Denies pain or discomfort. Review of Systems Review of Systems: ESAS Pain 0/3 Dyspnea 0/3 Anxiety 0/3 Fatigue 2/3 Nausea 0/3 Drowsiness 1/3 Physical Exam Constitutional: + thin and + frail appearing; no acute distress Respiratory: normal respiratory effort; no labored breathing Cardiovascular: Rate/Rhythm: regular rate and regular rhythm Musculoskeletal: Extremities: + muscle atrophy Skin: warm and dry Results & Data ([facility]) Vital Signs (Past 12 Hours) Vital Signs Temp Pulse Resp BP Pulse Ox O2 Del Method 08/16/22 09:35 Room Air 08/16/22 07:38 97.7 F 71 16 124/78 95 Room Air PG Care Time/CCT Total # of Minutes Spent Total Time Spent: 28 Total Time Spent with Patient: Total time spent is greater than 50% in coordination of care (as documented) at patient's floor/unit and/or counseling patient: code status, goals of care Coding Level of Care Code 66192 Subseq Hosp Care Lvl 2 Diagnoses Dysphagia R13.10 Palliative care encounter Z51.5
--- NOTE | 2022-08-16 15:24 | Hospitalist Progress Note ---
Date of Service August 16, 2022 Assessment & Plan (1) LLL pneumonia: Plan: likely 2nd to aspiration. LLL pneumonia seen on CT chest 08/10. initially on cefepime--> then unasyn-->now augmentin today is day #7 of abx.Will stop after this evening's dose despite Rx of pneumonia absolutely NO change in his overall status No need to follow CXR to resolution as is going on hospice permissive aspiration desired (2) Dysphagia: Plan: appreciate speech therapy consultation. video swallow completed - aspirated all consistencies. speech suggested either permissive aspiration with minced/moist diet + thin liquids VS pureed diet with thins. son opted for minced/moist diet. son was counseled that his father will likely continue with aspiration events and future pneumonia at times. (3) Incarcerated inguinal hernia: Plan: s/p OPEN LEFT INGUINAL HERNIA REPAIR with Dr Manuel 08/07 No issues at this time No pain davy in place (4) CAD in [place] artery: Plan: with a h/o [place] approx age 50-review of old records here from 2000 show sustained an acute inferior wall [place] in [facility], was ill for 2days with CP/SOB/N/V and not sought medical help while he was in [facility]. Strong family hx of CAD (mother at 63 from [place] and sister had first [place] when she was in mid 60s). 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 most recent Na wnl cont NaCL 1gm BID (6) Constipation: Plan: resolved cont bowel regimen (7) Iliac artery aneurysm, bilateral: Plan: noted on prior imaging no Rx (8) GERD (gastroesophageal reflux disease): Plan: PPI (9) Hyperlipidemia LDL goal <70: Plan: stop statin (10) BPH loc w urin obs/LUTS: Plan: with hua since last admission, repeat UA w/o infection resumed flomax but likely can d/c since he will continue with hua indefinitely (11) Diabetes mellitus: Plan: hx of such listed, last A1c only 5.9 just pre-DM no Rx (12) Severe protein-calorie malnutrition: Plan: 20+ pounds of weight loss last 6-12 months. underlying malignancy? would need outpatient EGD/colonoscopy, cystoscopy given recent hematuria, etc. was a heavy smoker in the past x 50 years. [facility]US?? I am most concerned about a bladder malignancy given his intermittent hematuria in the absence of UTI If bladder ca is present this may explain his faliure to thrive Urine cytologies negative, but this does not rule out bladder ca CT chest/abd/pelvis recently without obvious malignancy patient now has not eaten or drank in 6-7 days or longer on some days he has no food intake this has been despite use of low-dose prednisone for 5+ days and treating his LLL pneumonia could consider remeron palliative care discussions initiated last few days formal palliative care consult completed plan is SNF placement with hospice code status chaged to DNR/DNI by Palliative Medicine (13) Failure to thrive in adult: Plan: see above severe despite several days of low-dose prednisone he continues with poor appetite, lassitude, etc stopped prednisone since it has not been helpful (14) Gross hematuria: Plan: recurrent due to hua trauma? bladder ca? other? urine cx negative urine cytologies negative maintain hua ultimately would have needed cystoscopy but instead transitioning to palliative care pathway/hospice Plan dispo - will need SNF placement with plans for hospice whenever available Admission and Anticipated Discharge Date Admission Date: August 07, 2022 Subjective Pt reports he is having a good day. Denies pain. Has a chronic cough but no SOB. Is eating a little bit. Agrees he would like to go to [facility] with hospice Review of Systems Review of Systems: All systems reviewed & are unremarkable except as noted in HPI & below Physical Exam Physical Exam: General: WD/frail elderly male laying flat in bed, NAD Resp: CTA, diminished in the bases, no w/c, on room air CV: RRR, no m/r/g, no pitting edema/calf tenderness GI: +BS, nontender, no rebound/guarding, LIH reduced, davy in place, wound healing nicely, no surrounding erythema or drainge : hua draining turbid/concentrated urine MSK/Neuro: moves all extremities, no focal deficit/slurred speech, CN intact grossly Skin: dry, cool, flaky Psych: alert, oriented to person/knows in hospital, unclear on year, baseline dementia at times, cooperative/pleasant Results & Data Results & Data ([facility]) Vital Signs (Past 12 Hours) Vital Signs Temp Pulse Resp BP Pulse Ox O2 Del Method 08/16/22 09:35 Room Air 08/16/22 07:38 36.5 C 71 16 124/78 95 Room Air PG Care Time/CCT Total # of Minutes Spent Total Time Spent with Patient: Total time spent is greater than 50% in coordination of care (as documented) at patient's floor/unit and/or counseling patient: Coding Level of Care Code 94149 Subseq Hosp Care Lvl 1 Diagnoses LLL pneumonia J18.9 Dysphagia R13.10 Incarcerated inguinal hernia K40.30 CAD in [place] artery I25.10 Hyponatremia E87.1 Constipation K59.00 Constipation type: unspecified constipation type Iliac artery aneurysm, bilateral I72.3 GERD (gastroesophageal reflux disease) K21.9 Hyperlipidemia LDL goal <70 E78.5 BPH loc w urin obs/LUTS N40.1 Diabetes mellitus E11.9 Severe protein-calorie malnutrition E43 Failure to thrive in adult R62.7 Gross hematuria R31.0 (1) Constipation Constipation type: unspecified constipation type Qualified Code(s): K59.00 - Constipation, unspecified
[2022-08-16] MEDS ORDERED: AMOXICILLIN/CLAVULANATE 875 MG TAB PO ONE (17:30)
[2022-08-16] MEDS: ACETAMINOPHEN 325 MG TAB PO PRN (21:51)
--- NOTE | 2022-08-17 13:18 | Hospitalist Progress Note ---
Date of Service August 17, 2022 Assessment & Plan (1) LLL pneumonia: Plan: likely 2nd to aspiration. LLL pneumonia seen on CT chest 08/10. initially on cefepime--> then unasyn--> augmentin Completed 7 days of abx. despite Rx of pneumonia absolutely NO change in his overall status No need to follow CXR to resolution as is going on hospice permissive aspiration desired (2) Dysphagia: Plan: appreciate speech therapy consultation. video swallow completed - aspirated all consistencies. speech suggested either permissive aspiration with minced/moist diet + thin liquids VS pureed diet with thins. son opted for minced/moist diet. son was counseled that his father will likely continue with aspiration events and future pneumonia at times. (3) Incarcerated inguinal hernia: Plan: s/p OPEN LEFT INGUINAL HERNIA REPAIR with Dr Manuel 08/07 No issues at this time No pain davy in place will need to be removed probably around the 2 week krishna (4) CAD in [place] artery: Plan: with a h/o [place] approx age 50-review of old records here from 2000 show sustained an acute inferior wall [place] in [facility], was ill for 2days with CP/SOB/N/V and not sought medical help while he was in [facility]. Strong family hx of CAD (mother at 63 from [place] and sister had first [place] when she was in mid 60s). 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 most recent Na wnl cont NaCL 1gm BID (6) Constipation: Plan: resolved cont bowel regimen (7) Iliac artery aneurysm, bilateral: Plan: noted on prior imaging no Rx (8) GERD (gastroesophageal reflux disease): Plan: PPI (9) Hyperlipidemia LDL goal <70: Plan: stop statin (10) BPH loc w urin obs/LUTS: Plan: with hua since last admission, repeat UA w/o infection resumed flomax but likely can d/c since he will continue with hua indefinitely (11) Diabetes mellitus: Plan: hx of such listed, last A1c only 5.9 just pre-DM no Rx (12) Severe protein-calorie malnutrition: Plan: 20+ pounds of weight loss last 6-12 months. underlying malignancy? would need outpatient EGD/colonoscopy, cystoscopy given recent hematuria, etc. was a heavy smoker in the past x 50 years. son mentioned [facility] what sounds like MGUS?? I am most concerned about a bladder malignancy given his intermittent hematuria in the absence of UTI If bladder ca is present this may explain his failure to thrive Urine cytology negative, but this does not rule out bladder ca CT chest/abd/pelvis recently without obvious malignancy patient now has not eaten or drank in 6-7 days or longer on some days he has no food intake this has been despite use of low-dose prednisone for 5+ days and treating his LLL pneumonia could consider remeron palliative care discussions initiated last few days formal palliative care consult completed plan is SNF placement with hospice code status changed to DNR/DNI by Palliative Medicine (13) Failure to thrive in adult: Plan: see above severe despite several days of low-dose prednisone he continues with poor appetite, lassitude, etc stopped prednisone since it has not been helpful (14) Gross hematuria: Plan: recurrent due to hua trauma? bladder ca? other? urine cx negative urine cytologies negative maintain hua ultimately would have needed cystoscopy but instead transitioning to palliative care pathway/hospice Plan dispo - will need SNF placement with plans for hospice whenever available- hopeful for tomorrow at [facility] Admission and Anticipated Discharge Date Admission Date: August 07, 2022 Subjective Feels uncomfortable in his bottom and would like to be repositioned. Otherwise denies CP, SOB, pain anywhere else. Eating minimally. Discussed his care with his sone at the bedside Review of Systems Review of Systems: All systems reviewed & are unremarkable except as noted in HPI & below Physical Exam Physical Exam: General: WD/frail elderly male laying flat in bed, NAD Resp: CTA, diminished in the bases, no w/c, on room air CV: RRR, no m/r/g, no pitting edema/calf tenderness GI: +BS, nontender, no rebound/guarding, LIH reduced, davy in place, wound healing nicely, no surrounding erythema or drainge : hua draining turbid/concentrated urine MSK/Neuro: moves all extremities, no focal deficit/slurred speech, CN intact grossly Skin: dry, cool, flaky Psych: alert, oriented to person/knows in hospital, cooperative/pleasant Results & Data Results & Data ([facility]) Vital Signs (Past 12 Hours) Vital Signs Temp Pulse Resp BP Pulse Ox O2 Del Method 08/17/22 09:15 Room Air 08/17/22 07:51 36.6 C 68 16 122/73 94 Room Air PG Care Time/CCT Total # of Minutes Spent Total Time Spent with Patient: Total time spent is greater than 50% in coordination of care (as documented) at patient's floor/unit and/or counseling patient: Coding Level of Care Code 41917 Subseq Hosp Care Lvl 1 Diagnoses LLL pneumonia J18.9 Dysphagia R13.10 Incarcerated inguinal hernia K40.30 CAD in [place] artery I25.10 Hyponatremia E87.1 Constipation K59.00 Constipation type: unspecified constipation type Iliac artery aneurysm, bilateral I72.3 GERD (gastroesophageal reflux disease) K21.9 Hyperlipidemia LDL goal <70 E78.5 BPH loc w urin obs/LUTS N40.1 Diabetes mellitus E11.9 Severe protein-calorie malnutrition E43 Failure to thrive in adult R62.7 Gross hematuria R31.0 (1) Constipation Constipation type: unspecified constipation type Qualified Code(s): K59.00 - Constipation, unspecified
[2022-08-17] MEDS: ADVANCED PROBIOTIC 1250 MG CAPSULE PO SCH (16:12)
[2022-08-17] MEDS: TAMSULOSIN HCL 0.4 MG CAP PO SCH (16:13)
[2022-08-17] MEDS: SODIUM CHLORIDE 1 GM TABLET PO SCH ×2 (16:13→19:57)
[2022-08-17] MEDS: PANTOprazole 40 MG TAB PO SCH (16:13)
[2022-08-18] MEDS: PANTOprazole 40 MG TAB PO SCH (08:47)
[2022-08-18] MEDS: TAMSULOSIN HCL 0.4 MG CAP PO SCH (08:47)
[2022-08-18] MEDS: ADVANCED PROBIOTIC 1250 MG CAPSULE PO SCH (08:47)
[2022-08-18] MEDS: SODIUM CHLORIDE 1 GM TABLET PO SCH ×2 (08:48→20:18)
--- NOTE | 2022-08-18 12:20 | Palliative Care Progress Note ---
Date of Service August 18, 2022 Assessment & Plan (1) Dysphagia: Plan: Focus of care is comfort and symptom management with permissive aspiration. (2) Palliative care encounter: Plan: Mr. Marcial did not have any questions or concerns today. He has been able to work with PT and plan will be for transfer to SNF with rehab, transitioning to hospice when appropriate. Admission and Anticipated Discharge Date Admission Date: August 07, 2022 Subjective Awake. Denies pain or discomfort. Has had some po intake and denies difficulty. Review of Systems Review of Systems: ESAS Pain 0/3 Dyspnea 0/3 Fatigue 2/3 Nausea 0/3 Drowsiness 0/3 PPS 40% Physical Exam Constitutional: + thin and + frail appearing Respiratory: normal respiratory effort; no labored breathing Gastrointestinal (Abdomen): nondistended Musculoskeletal: Extremities: + muscle atrophy Results & Data ([facility]) Vital Signs (Past 12 Hours) Vital Signs Temp Pulse Resp BP Pulse Ox O2 Del Method 08/18/22 07:33 97.9 F 71 14 138/84 93 Room Air PG Care Time/CCT Total # of Minutes Spent Total Time Spent with Patient: Total time spent is greater than 50% in coordination of care (as documented) at patient's floor/unit and/or counseling patient: Coding Level of Care Code 62217 Subseq Hosp Care Lvl 1 Diagnoses Dysphagia R13.10 Palliative care encounter Z51.5
--- NOTE | 2022-08-18 15:23 | Hospitalist Progress Note ---
Date of Service August 18, 2022 Assessment & Plan (1) LLL pneumonia: Plan: likely 2nd to aspiration. LLL pneumonia seen on CT chest 08/10. initially on cefepime--> then unasyn--> augmentin Completed 7 days of abx. despite Rx of pneumonia absolutely NO change in his overall status No need to follow CXR to resolution as is going on hospice permissive aspiration desired (2) Dysphagia: Plan: appreciate speech therapy consultation. video swallow completed - aspirated all consistencies. speech suggested either permissive aspiration with minced/moist diet + thin liquids VS pureed diet with thins. son opted for minced/moist diet. son was counseled that his father will likely continue with aspiration events and future pneumonia at times. (3) Incarcerated inguinal hernia: Plan: s/p OPEN LEFT INGUINAL HERNIA REPAIR with Dr Manuel 08/07 No issues at this time No pain, barely even taking any tylenol davy in place will need to be removed probably around the 2 week krishna (4) CAD in [place] artery: Plan: with a h/o [place] approx age 50-review of old records here from 2000 show sustained an acute inferior wall [place] in [facility], was ill for 2 days with CP/SOB/N/V and did not seek medical help while he was in [facility]. Strong family hx of CAD (mother at 63 from [place] and sister had first [place] when she was in mid 60s). 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 most recent Na wnl cont NaCL 1gm BID (6) Constipation: Plan: resolved cont bowel regimen (7) Iliac artery aneurysm, bilateral: Plan: noted on prior imaging no Rx (8) GERD (gastroesophageal reflux disease): Plan: PPI (9) Hyperlipidemia LDL goal <70: Plan: stopped statin (10) BPH loc w urin obs/LUTS: Plan: with hua since last admission, repeat UA w/o infection resumed flomax but will d/c since he will continue with hua indefinitely (11) Diabetes mellitus: Plan: hx of such listed, last A1c only 5.9 just pre-DM no Rx (12) Severe protein-calorie malnutrition: Plan: 20+ pounds of weight loss last 6-12 months. underlying malignancy? would need outpatient EGD/colonoscopy, cystoscopy given recent hematuria, etc. was a heavy smoker in the past x 50 years. [facility] mentioned [facility] like MGUS?? I am most concerned about a bladder malignancy given his intermittent hematuria in the absence of UTI If bladder ca is present this may explain his failure to thrive Urine cytology negative, but this does not rule out bladder ca CT chest/abd/pelvis recently without obvious malignancy patient with very little po intake for the last 2 weeks on some days he has no food intake this has been despite use of low-dose prednisone for 5+ days and treating his LLL pneumonia palliative care discussions initiated formal palliative care consult completed plan is SNF placement with eventual transition to hospice code status changed to DNR/DNI by Palliative Medicine (13) Failure to thrive in adult: Plan: see above severe despite several days of low-dose prednisone he continues with poor appetite, lassitude, etc stopped prednisone since it has not been helpful -he does not want to get out of bed at all (14) Gross hematuria: Plan: recurrent due to hua trauma? bladder ca? other? urine cx negative urine cytologies negative maintain hua ultimately would have needed cystoscopy but instead transitioning to palliative care pathway/hospice Plan dispo -plan for SNF placement with eventual transition to hospice-insurance authorization approved for [facility], but unfortunately no transportation was available this late in the day. Plan for discharge to rehab tomorrow. Admission and Anticipated Discharge Date Admission Date: August 07, 2022 Subjective Pt has no complaints. Denies pain but son at bedside thinks his dad does appear uncomfortable at times. Pt declines stronger pain medicine. He ate a little bit today. Review of Systems Review of Systems: All systems reviewed & are unremarkable except as noted in HPI & below Physical Exam Physical Exam: General: WD/frail elderly male lying flat in bed, NAD Resp: CTA, diminished in the bases, no w/c, on room air CV: RRR, no m/r/g, no pitting edema/calf tenderness GI: +BS, nontender, no rebound/guarding, left groin with davy in place : hua in place MSK/Neuro: moves all extremities, no focal deficit/slurred speech, CN intact grossly Psych: alert, oriented to person/knows in hospital, cooperative/pleasant Results & Data Results & Data ([place]) Vital Signs (Past 12 Hours) Vital Signs Temp Pulse Resp BP Pulse Ox O2 Del Method 08/18/22 15:06 36.5 C 91 H 18 132/87 94 Room Air 08/18/22 08:12 Room Air 08/18/22 07:33 36.6 C 71 14 138/84 93 Room Air PG Care Time/CCT Total # of Minutes Spent Total Time Spent with Patient: Total time spent is greater than 50% in coordination of care (as documented) at patient's floor/unit and/or counseling patient: Coding Level of Care Code 87616 Subseq Hosp Care Lvl 1 Diagnoses LLL pneumonia J18.9 Dysphagia R13.10 Incarcerated inguinal hernia K40.30 CAD in [place] artery I25.10 Hyponatremia E87.1 Constipation K59.00 Constipation type: unspecified constipation type Iliac artery aneurysm, bilateral I72.3 GERD (gastroesophageal reflux disease) K21.9 Hyperlipidemia LDL goal <70 E78.5 BPH loc w urin obs/LUTS N40.1 Diabetes mellitus E11.9 Severe protein-calorie malnutrition E43 Failure to thrive in adult R62.7 Gross hematuria R31.0 (1) Constipation Constipation type: unspecified constipation type Qualified Code(s): K59.00 - Constipation, unspecified
[2022-08-19] MEDS: ADVANCED PROBIOTIC 1250 MG CAPSULE PO SCH (09:01)
[2022-08-19] MEDS: TAMSULOSIN HCL 0.4 MG CAP PO SCH (09:01)
[2022-08-19] MEDS: PANTOprazole 40 MG TAB PO SCH (09:01)
[2022-08-19] MEDS: SODIUM CHLORIDE 1 GM TABLET PO SCH (09:01)
--- NOTE | 2022-08-19 11:13 | Discharge Summary ---
Date of Service August 19, 2022 Admission HPI Per Admitting Provider 77yo male presented to ER x 2 for reduction of LEFT inguinal hernia. PMHx significant for SIADH, HTN, HLD, pre-DM, GERD, BPH, b/l iliac artery aneurysm, constipation. Reduced this morning by Dr Manuel but planning for surgery for correction given likelihood of reoccurrence. Son and DIL in room, state has had Hua since discharge last admission around 07/21. Urine is clearing up, had been changed from one cephalosporin to another (was on cefdinir, then cephalexin recently) Discussed constipation, ongoing issue. Using daily lactulose at home but son notes as they live together and he's been crossing paths more since d/c that his father had been increasingly weak/balance issues. Did have fall or two at home, no striking of head noted. He did note chronic constipation issues, recently almost disimpacting himself when wiping and had a stool ball the size of a baseball. Discussed suppository x 1 and will encourage miralax/senna/docusate for softening/stimulant effect rather than lactulose w/ increased distention. No fevers/chills at home. Did report decreased PO intake due to abdominal pain. No vomiting. Discussed OR today, then will give diet/monitor bowels. Will also request PT/OT consultations to see if any assistance with HH/PT vs inpatient rehab as son dose note it has been a lot at home and he is at the end of his rope. Checking B12 for dementia/balance issues, TSH for constipation/confusion and hyponatremia. They have been giving him NaCl tablets twice daily since d/c last admission. Full Code per discussion with patient/family. Hospital course: left incarcerated inguina hernia was repaired. there was failure to thrive. - dysphagia was diagnosed, MBS showed he was aspirating all consistencies, pureed diet has been started. Detailed instructions by speech therapy from Aug being sent to SNF. Po intake was poor here. Palliative care were consulted- he is to eat as he wishes- permissive aspiration. Son made aware that he will probably have aspiration pneumonia again. He is now DNR/ DNI. He has been bed bound- no PT. Had SIADH diagnosed as cause of his hyponatremia earlier- no labs done since Aug when sodium was 136, K 3.7, BUN 13, cr 0.42. Glucose 119 Sars-COV 2 negative today Being discharged to [facility],a SNF on hospice. His own home is in disrepair and he does not wish to be a burden on his family. He is diabetic and being discharged on regular diet pureed as po intake has been poor. He has a right ankle ulcer, clean, stage 3, Optifoam w Aquasell is being used on it and is to continue. I picked up his care on the day of discharge and he reported a fine mood. I saw he has oral thrush and nystatin swish and spit started in d/c meds. He is unable to tell me where he is or what month it is, his overall insight is uncertain. He seemed to have had better communication w Dr Dunlap of palliative care Aug 14 when he expressed some opinions. Family have been visiting per RN. Discharged with his indwelling Hua that has been there since Jul . Principal Diagnosis pneumonia likely aspiration, failure to thrive, dysphagia. Discharge Exam at 1045 h ,comfortable, alert, quiet, "I don't know" to month, and where he is. "close to ninety" he says to age follows commands, H/N : oral thrush spots om tongue Chest : CTA CVS : S1, S2, RRR Abd : non tender, indwelling Hua catheter with yellow urine. Skin : small right gluteal skin tear, intact sacrum with Allevyn on for protection R heel has a stage 3 ulcer, clean. no discharge, covered with optifoam Ext : ankle protectors on Discharge Data Allergies Allergy/AdvReac Type Severity Reaction Status Date / Time No Known Allergies Allergy Verified 08/07/22 08:38 Consultations 08/07/22 09:13 ED Decision to Admit Stat 08/15/22 09:31 Consult Palliative Care Routine Procedures Performed Operation Date: 08/07/22 11:00 Actual Procedures p Left Inguinal Hernia Repair with mesh(Left) - Prabhu Manuel MD, FACS Ordered Studies 08/10/22 16:53 CT chest diagnostic wo con Routine 08/11/22 13:00 FL video swallow Routine Hospital Course (1) LLL pneumonia: likely 2nd to aspiration. LLL pneumonia seen on CT chest 08/10. initially on cefepime--> then unasyn--> augmentin Completed 7 days of abx. despite Rx of pneumonia absolutely NO change in his overall status No need to follow CXR to resolution as is going on hospice permissive aspiration desired (2) Dysphagia: appreciate speech therapy consultation. video swallow completed - aspirated all consistencies. speech suggested either permissive aspiration with minced/moist diet + thin liquids VS pureed diet with thins. son opted for minced/moist diet. son was counseled that his father will likely continue with aspiration events and future pneumonia at times. (3) Incarcerated inguinal hernia: s/p OPEN LEFT INGUINAL HERNIA REPAIR with Dr Manuel 08/07 No issues at this time No pain, barely even taking any tylenol davy in place will need to be removed probably around the 2 week krishna (4) CAD in [place] artery: with a h/o PR approx age 50-review of old records here from 2000 show sustained an acute inferior wall PR in [facility], was ill for 2 days with CP/SOB/N/V and did not seek medical help while he was in [facility]. Strong family hx of CAD (mother at 63 from PR and sister had first PR when she was in mid 60s). patient has had stents in the past stopped ASA 81mg daily and statin 20mg daily due to transitioning to hospice status Nitro prn but no ischemic symptoms while here (5) Hyponatremia: 2nd SIADH stable/resolved most recent Na wnl cont NaCL 1gm BID (6) Constipation: resolved cont bowel regimen (7) Iliac artery aneurysm, bilateral: noted on prior imaging no Rx (8) GERD (gastroesophageal reflux disease): PPI (9) Hyperlipidemia LDL goal <70: stopped statin (10) BPH loc w urin obs/LUTS: with hua since last admission, repeat UA w/o infection resumed flomax but will d/c since he will continue with hua indefinitely (11) Diabetes mellitus: hx of such listed, last A1c only 5.9 just pre-DM no Rx (12) Severe protein-calorie malnutrition: 20+ pounds of weight loss last 6-12 months. underlying malignancy? would need outpatient EGD/colonoscopy, cystoscopy given recent hematuria, etc. was a heavy smoker in the past x 50 years. son mentioned [facility] what sounds like MGUS?? I am most concerned about a bladder malignancy given his intermittent hematuria in the absence of UTI If bladder ca is present this may explain his failure to thrive Urine cytology negative, but this does not rule out bladder ca CT chest/abd/pelvis recently without obvious malignancy patient with very little po intake for the last 2 weeks on some days he has no food intake this has been despite use of low-dose prednisone for 5+ days and treating his LLL pneumonia palliative care discussions initiated formal palliative care consult completed plan is SNF placement with eventual transition to hospice code status changed to DNR/DNI by Palliative Medicine (13) Failure to thrive in adult: see above severe despite several days of low-dose prednisone he continues with poor appetite, lassitude, etc stopped prednisone since it has not been helpful -he does not want to get out of bed at all (14) Gross hematuria: recurrent due to hua trauma? bladder ca? other? urine cx negative urine cytologies negative maintain hua ultimately would have needed cystoscopy but instead transitioning to palliative care pathway/hospice Plan dispo -plan for SNF placement with eventual transition to hospice-insurance authorization approved for [facility], but unfortunately no transportation was available this late in the day. Plan for discharge to rehab tomorrow. Total Time Total Time Spent Total Time Spent (In Minutes): 45 Discharge Plan Discharge Items Patient Disposition: Transfer Residential Fac Reason For Visit: HERNIA POPPING OUT DUE TO CONSTIPATION Discharge Diagnosis: Incarcerated left inguinal hernia, aspiration, failure to thrive Activity: Per Instructions section Activity Comment: light activity for 4 weeks Lifting: No more than 10 pounds Bathing Comment: may shower; no soaking in tubs/pools Sexual Activity: When tolerated Exercise/Sports: Wait until after follow-up appointment Exercise Comment: wait 4 weeks Driving/Machine Use: wait at least 1 week; no driving while taking narcotics for pain Non-emergency contact: Primary Care Provider and Surgeon Call non-emergency contact if: you have any medication questions, your symptoms worsen, your pain is not controlled, your pain is concerning for you, you have a fever, your temperature is above 101.5, your wound has increased redness, your wound has increased drainage and your wound pain has increased Follow-up/Referrals: Prabhu Manuel MD, FACS [Physician] - Jannie Harris PA-C [Primary Care Provider] - Diet: Regular Diet Texture: Pureed (blended smooth) Liquid Consistency: [place] thick Diet Comment: pureed minced and mosit diet - see details by speech therapy. Addtl Attending Provider Instructions: SPECIAL CARE INSTRUCTIONS: * Cover incisions and change daily for comfort/drainage. May leave uncovered if dry May remove Steri-Strips in 1 to 2 weeks as they peel off * May use ibuprofen for pain as tolerated. * Expect some swelling and bruising. Call your doctor if: * Temperature above 101 degrees * Pain not relieved by pain medicine ordered * There is increased drainage or redness from any incision * You have any unanswered questions or concerns [phone]. FOLLOW UP VISIT: Patient does not need office follow-up unless desired by nurses or family OFFICE PHONE NUMBER: Dr. Manuel Office Pending Studies at Discharge: No Stand-Alone Forms: My [employer], Smoking Cessation Skilled Items Patient informed of condition?: Yes DNR: Yes Discharge Level of Care: Skilled Communicable Disease: No Discharge Prognosis: Other Lines: None Urinary Catheter: Yes Medications and DC Order Prescriptions: New nitroglycerin [Nitrostat] 0.4 mg Tablet, Sublingual 0.4 mg sublingual UD PRN (Reason: chest pain) Qty: 1 0RF nystatin 100,000 unit/mL suspension 1 ml PO QID Qty: 60 0RF Rx Instructions: swish and swallow aspirin 81 mg Tablet,Delayed Release (Dr/Ec) 81 mg PO QAM Qty: 10 0RF pantoprazole 40 mg Tablet,Delayed Release (Dr/Ec) 40 mg PO QAM Qty: 10 0RF sodium chloride 1 gram Tablet 1 g PO BID Qty: 10 0RF acetaminophen 325 mg Tablet 325 mg PO Q8H PRN (Reason: pain) Qty: 10 0RF Advanced Probiotic 625 mg (10 billion cell) Capsule 2 cap PO DAILY Qty: 7 0RF Continued tamsulosin [Flomax] 0.4 mg Capsule 0.4 mg PO DAILY Discontinued omeprazole 20 mg Tablet,Delayed Release (Dr/Ec) 20 mg PO QPM nitroglycerin [Nitrostat] 0.3 mg Tablet, Sublingual 0.3 mg sublingual DIRECTED PRN (Reason: Chest Pain) simvastatin 40 mg Tablet 20 mg PO HS Ensure Liquid 1 ea PO DAILY nicotine (polacrilex) 4 mg Lozenge 4 mg BUCCAL DIRECTED PRN (Reason: SMOKING SESSATION) sodium chloride 1 gram Tablet 1 g PO TID Qty: 90 0RF cephalexin 500 mg capsule 500 mg PO BID Rx Instructions: PER PT'S SON "HAS ONE MORE DOSE TO COMPLETE COURSE". cefdinir 300 mg capsule 300 mg PO BID 10 Days Qty: 20 0RF Saccharomyces boulardii [Florastor] 250 mg capsule 250 mg PO BID Qty: 20 0RF Rx Instructions: swallow whole lactulose 20 gram/30 mL solution 20 g PO DAILY PRN (Reason: constipation) Qty: 1200 0RF Discharge Orders: Discharge Order (Routine); Ordered 08/19/22 Ordered By: Messi Crowder Admission Data Admit Date/Time: 08/07/22 10:33 Attending Provider: Messi Crowder Admit Provider: Tisha Glover Primary Care Provider: Jannie Harris Other Providers: Tisha Glover ; [facility] ; Imani Dunlap ; [facility] Other Interventions: Discharge Summary Assessment (RN) Last Done: 08/19/22 11:34 Coding Level of Care Code D/C DAY MANAGEMENT >30 MINS Diagnoses LLL pneumonia J18.9 Dysphagia R13.10 Incarcerated inguinal hernia K40.30 CAD in [place] artery I25.10 Hyponatremia E87.1 Constipation K59.00 Constipation type: unspecified constipation type Iliac artery aneurysm, bilateral I72.3 GERD (gastroesophageal reflux disease) K21.9 Hyperlipidemia LDL goal <70 E78.5 BPH loc w urin obs/LUTS N40.1 Diabetes mellitus E11.9 Severe protein-calorie malnutrition E43 Failure to thrive in adult R62.7 Gross hematuria R31.0
== END 2022-08-19 11:55 | DRG 350 ==
LOC: ED 07:11 → SUATTDRO 10:33 → 3E 10:33
DX: F17.210 Nicotine dependence, cigarettes, uncomplicated; R62.7 Adult failure to thrive; Z82.49 Family history of ischemic heart disease and other diseases of the circulatory system; I72.3 Aneurysm of iliac artery; R33.8 Other retention of urine; R13.10 Dysphagia, unspecified; R73.03 Prediabetes; E22.2 Syndrome of inappropriate secretion of antidiuretic hormone; N13.8 Other obstructive and reflux uropathy; K21.9 Gastro-esophageal reflux disease without esophagitis; R31.0 Gross hematuria; J69.0 Pneumonitis due to inhalation of food and vomit; E43 Unspecified severe protein-calorie malnutrition; Z20.822 Contact with and (suspected) exposure to COVID-19; K40.31 Unilateral inguinal hernia, with obstruction, without gangrene, recurrent; E86.0 Dehydration; Z66 Do not resuscitate; Z79.899 Other long term (current) drug therapy; I25.10 Atherosclerotic heart disease of native coronary artery without angina pectoris; Z91.81 History of falling; I10 Essential (primary) hypertension; L97.319 Non-pressure chronic ulcer of right ankle with unspecified severity; E78.5 Hyperlipidemia, unspecified; I25.2 Old myocardial infarction; N40.1 Benign prostatic hyperplasia with lower urinary tract symptoms; B37.0 Candidal stomatitis; K59.00 Constipation, unspecified; Z95.5 Presence of coronary angioplasty implant and graft

== ENCOUNTER 2022-08-24 13:44 | Inpatient (IN) ==
--- NOTE | 2022-08-24 14:05 | Emergency Department Note ---
Impression & Plan Acute urinary retention, Hematuria, Leukocytosis ED Provider Note NAME: ALVARO MIRANDA AGE: 77 SEX: M : 1945 ARRIVES VIA: Ambulance INFORMANT: Patient ED PROVIDER(S): Navin La DO CHIEF COMPLAINT: Hematuria HPI: Patient is a 77-year-old male who presents to the ER with past medical history of aspiration pneumonia, constipation, hernia repair for inability to urinate and blood in the urine. Patient denies any headache or change in vision. No chest pain or shortness of breath. No belly pain but does note bleeding at the tip of the penis. [facility] had [facility] and have changed it out several times. Last time was bleeding. They attempted to place another one in today but was unsuccessful. Family brought him in. They do not want any aggressive measures performed. They do not want blood work. No imaging. ROS: See above HPI for pertinent positives & negatives. A total of 10 systems reviewed and were otherwise negative. PAST MEDICAL HISTORY:See Below PAST SURGICAL HISTORY:See Below FAMILY HISTORY:See Below SOCIAL HISTORY:See Below HOME MEDICATIONS:See Below ALLERGIES:See Below VITALS:See Below PHYSICAL EXAMINATION: GENERAL: Sitting up in bed, alert, cachectic, chronically ill-appearing EYE EXAM: normal conjunctiva. OROPHARYNX: no exudate, no erythema, lips, buccal mucosa, and tongue normal and mucous membranes are moist NECK: supple, no nuchal rigidity, no adenopathy, non-tender LUNGS: Clear to auscultation. Normal chest wall mechanics HEART: no murmurs, S1 normal and S2 normal ABDOMEN: abdomen soft, non-tender, normo-active bowel sounds, no masses, no rebound or guarding. : Small amount of bright red blood at tip of the penis UPPER EXTREMITIES: upper extremities are grossly normal. LOWER EXTREMITIES: No pitting edema. NEURO EXAM: Normal sensorium, cranial nerves II-XII grossly intact, normal speech, no gross weakness of arms, no gross weakness of legs. MEDICAL DECISION MAKING: Patient is a 77-year-old male who family wants minimal intervention who is compl aining of inability to urinate after several failed catheterizations as an outpatient. We attempted to place a Loza here and was unsuccessful. Urology SYL Coleman then attempted which was followed by Dr. Suero who was unsuccessful. Following this blood work was obtained and CT abdomen pelvis. I discussed the case with the hospitalist for admission as patient was going to the OR. CBC shows a mild leukocytosis 15,000. No significant anemia. BMP on LFTs bilirubin and lipase was unremarkable. COVID was negative. CT abdomen pelvis showed distended bladder. Patient was taken emergently to the OR with urology. Triage Nursing notes reviewed. Limited review of prior medical records performed Vital Signs: reviewed and remarkable for tachy Differential diagnosis: Differential diagnoses includes but is not limited to gastritis, peptic ulcer disease, GERD, gallbladder disease, pancreatitis, small bowel obstruction, acute coronary syndrome, pericarditis, ischemic bowel, irritable bowel disease, irritable bowel syndrome, appendicitis, diverticulitis, malignancy, hernia, urinary tract infection, torsion, perforation, trauma, infectious. ER treatment provided: See below Diagnostics interpreted by me: ECG: none Cardiac Monitoring: An order was placed for continuous cardiac monitoring. The monitor shows a rate of 101 with sinus rhythm. Laboratory studies: As stated above and show below. Imaging studies: CT abdomen pelvis as described above Consultation(s): Patient was seen and evaluated and taken to the OR by Dr. Robbie Suero Discussed with Dr. Brock for admission Procedures: none Critical Care: None Past Med/Surg History Medical History BPH loc w urin obs/LUTS CAD in [place] artery Diabetes mellitus GERD (gastroesophageal reflux disease) Hyperlipidemia LDL goal <70 Hypertension Iliac artery aneurysm, bilateral Surgical History No pertinent past surgical history S/P left inguinal hernia repair (08/07/22) Open left inguinal hernia repair. Dr. Manuel 08/07/2022 Family History Other Coronary heart disease Stroke Social History Smoking Status: Current every day smoker Tobacco Type: Cigarettes Cigarettes Per Day: 15-20; Hx Alcohol Use: No Hx Substance Use: No Preferred Language: Senegalese Communication Ability: Effective Supervisor Malted Milk Required: No Beliefs That Will Affect Care: Spiritual Current Living Situation: Family Current Living Situation Comment: Lives with son Feels Safe at Home: Yes Assistive Devices: Cane and Walker Allergies Allergies Allergy/AdvReac Type Severity Reaction Status Date / Time No Known Allergies Allergy Verified 08/07/22 08:38 Home Meds Home Medications Medication Instructions Recorded Confirmed tamsulosin 0.4 mg capsule (Flomax) 0.4 mg PO DAILY 07/27/22 08/07/22 Previous Rx's Medication Instructions Recorded L.acidop,casei,lactis,rham-B.lact,ayah 2 cap PO DAILY #7 caps 08/19/22 625 mg (10 billion cell) capsule (Advanced Probiotic) acetaminophen 325 mg tablet 325 mg PO Q8H PRN pain #10 tabs 08/19/22 aspirin 81 mg tablet,delayed 81 mg PO QAM #10 tabs 08/19/22 release nitroglycerin 0.4 mg sublingual 0.4 mg sublingual UD PRN chest 08/19/22 tablet (Nitrostat) pain #1 tab nystatin 100,000 unit/mL oral 1 ml PO QID for one week- stop if 08/19/22 suspension oral thrush gone #60 mL pantoprazole 40 mg tablet,delayed 40 mg PO QAM #10 tabs 08/19/22 release sodium chloride 1 gram tablet 1 g PO BID #10 tabs 08/19/22 Results & Data (ED) Vital Signs Vital Signs - 24 hr 08/24/22 13:51 08/24/22 15:58 08/24/22 16:45 Temperature 36.7 C 37.2 C Temperature Source Oral Oral Pulse Rate 115 H Pulse Rate [Apical] 110 H Pulse Rate [Left Finger] 132 H Pulse Rhythm [Apical] Respiratory Rate 20 22 18 Respiratory Effort / Characteristics Non-Labored Non-Labored Spontaneous Non-Labored Spontaneous Respiratory Depth Normal Normal Normal Respiratory Pattern Blood Pressure 134/91 Blood Pressure [Left Arm] Blood Pressure [Right Arm] 142/96 H 114/81 Blood Pressure Mean 105 Blood Pressure Mean [Left Arm] Blood Pressure Mean [Right Arm] 111 92 Blood Pressure Position [Left Arm] Blood Pressure Position [Right Arm] Semi-fowlers Pulse Oximetry 94 97 97 Oxygen Delivery Method Room Air Room Air Room Air Oxygen Flow Rate Sepsis Recent Fever Within 48 Hours No Sepsis New/Unexplained Change in Mental Status No Sepsis Action Taken by Nursing No Action Required 08/24/22 18:04 08/24/22 18:10 08/24/22 18:20 Temperature 36.2 C L Temperature Source Temporal Artery Scan Pulse Rate Pulse Rate [Apical] 91 H 95 H 99 H Pulse Rate [Left Finger] Pulse Rhythm [Apical] Regular Regular Regular Respiratory Rate 16 13 14 Respiratory Effort / Characteristics Non-Labored Spontaneous Non-Labored Spontaneous Non-Labored Spontaneous Respiratory Depth Normal Normal Normal Respiratory Pattern Regular Regular Regular Blood Pressure Blood Pressure [Left Arm] 110/78 111/71 115/74 Blood Pressure [Right Arm] Blood Pressure Mean Blood Pressure Mean [Left Arm] 88 84 87 Blood Pressure Mean [Right Arm] Blood Pressure Position [Left Arm] Lying Lying Lying Blood Pressure Position [Right Arm] Pulse Oximetry 100 100 100 Oxygen Delivery Method Oxymask Oxymask Oxymask Oxygen Flow Rate 4 4 4 Sepsis Recent Fever Within 48 Hours Sepsis New/Unexplained Change in Mental Status Sepsis Action Taken by Nursing 08/24/22 18:30 Temperature Temperature Source Pulse Rate Pulse Rate [Apical] 103 H Pulse Rate [Left Finger] Pulse Rhythm [Apical] Regular Respiratory Rate 15 Respiratory Effort / Characteristics Non-Labored Spontaneous Respiratory Depth Normal Respiratory Pattern Regular Blood Pressure Blood Pressure [Left Arm] 104/70 Blood Pressure [Right Arm] Blood Pressure Mean Blood Pressure Mean [Left Arm] 81 Blood Pressure Mean [Right Arm] Blood Pressure Position [Left Arm] Semi-fowlers Blood Pressure Position [Right Arm] Pulse Oximetry 97 Oxygen Delivery Method Room Air Oxygen Flow Rate Sepsis Recent Fever Within 48 Hours Sepsis New/Unexplained Change in Mental Status Sepsis Action Taken by Nursing Laboratory Data Result diagrams: 08/24/22 16:17 08/24/22 16:17 Lab Results 08/24/22 08/24/22 08/24/22 Range/Units 16:10 16:17 16:17 WBC 15.00 H (4.8-10.8) K/ul RBC 4.97 (4.63-6.08) M/uL Hgb 15.9 (14.0-18.0) g/dl POC Hgb (14.0-18.0) g/dl Hct 46.0 (40.1-51.0) % POC Hct (42-52) % MCV 92.6 (80.0-100.0) fL MCH 32.0 (25.0-34.0) pg MCHC 34.6 (32.0-36.0) g/dL RDW Std Deviation 46.8 H (36.4-46.3) fL RDW Coeff of Andria 13.8 (11.5-14.5) % Plt Count 240 (130-400) K/uL MPV 9.8 (9.4-12.4) fL Immature Gran % (Auto) 0.3 % Neut % (Auto) 81.0 % Lymph % (Auto) 10.5 % Pepin % (Auto) 7.9 % Eos % (Auto) 0.1 % Baso % (Auto) 0.2 % Neut # (Auto) 12.14 H (1.4-6.5) K/uL Lymph # (Auto) 1.58 (1.2-3.4) K/uL Pepin # (Auto) 1.19 H (0.24-0.82) K/uL Eos # (Auto) 0.01 (0-0.50) K/uL Baso # (Auto) 0.03 (0-0.2) K/uL Immature Gran # (Auto) 0.05 H (0.00-0.02) K/uL POC Sodium (135-144) mmol/L Sodium 140 (136-145) mmol/L POC Potassium (3.3-5.0) mmol/L Potassium 3.7 (3.5-5.1) mmol/L POC Chloride (101-112) mmol/L Chloride 104 (98-107) mmol/L Carbon Dioxide 22 (21-32) mmol/L POC Total CO2 (24-31) mmol/L Anion Gap 14 H (3-11) POC Anion Gap (16-25) mmol/L POC BUN (7-18) mg/dl BUN 22 (6-23) mg/dl Creatinine 0.51 L (0.6-1.4) mg/dl POC Creatinine (0.6-1.3) mg/dl Est Cr Clr Drug Dosing 103.3 ml/min Est GFR ( Amer) 119.3 ml/min Est GFR (Non-Af Amer) 103.0 ml/min BUN/Creatinine Ratio 43.1 H (10-20) Glucose 136 H (70-99(Fasting)) mg/dl POC Glucose (70-99) mg/dl POC Glucose (other) (70-99) mg/dl Calcium 9.3 (8.5-10.1) mg/dl POC Ioniz Calcium Margi (1.12-1.32) mmol/l Total Bilirubin 0.8 (0.2-1.0) mg/dl AST 11 L (13-39) U/L ALT 8 (7-52) U/L Alkaline Phosphatase 66 (34-104) U/L Total Protein 6.7 (6.0-8.3) gm/dl Albumin 3.4 (3.4-5.0) gm/dl Globulin 3.3 (2.5-4.0) gm/dl Albumin/Globulin Ratio 1.0 (0.9-2) Lipase 30 (11-82) U/L SARS-CoV-2, RNA, NAAT NEGATIVE (NEGATIVE) 08/24/22 08/24/22 Range/Units 16:22 18:07 WBC (4.8-10.8) K/ul RBC (4.63-6.08) M/uL Hgb (14.0-18.0) g/dl POC Hgb 16.3 (14.0-18.0) g/dl Hct (40.1-51.0) % POC Hct 48 (42-52) % MCV (80.0-100.0) fL MCH (25.0-34.0) pg MCHC (32.0-36.0) g/dL RDW Std Deviation (36.4-46.3) fL RDW Coeff of Andria (11.5-14.5) % Plt Count (130-400) K/uL MPV (9.4-12.4) fL Immature Gran % (Auto) % Neut % (Auto) % Lymph % (Auto) % Pepin % (Auto) % Eos % (Auto) % Baso % (Auto) % Neut # (Auto) (1.4-6.5) K/uL Lymph # (Auto) (1.2-3.4) K/uL Pepin # (Auto) (0.24-0.82) K/uL Eos # (Auto) (0-0.50) K/uL Baso # (Auto) (0-0.2) K/uL Immature Gran # (Auto) (0.00-0.02) K/uL POC Sodium 141 (135-144) mmol/L Sodium (136-145) mmol/L POC Potassium 3.6 (3.3-5.0) mmol/L Potassium (3.5-5.1) mmol/L POC Chloride 105 (101-112) mmol/L Chloride (98-107) mmol/L Carbon Dioxide (21-32) mmol/L POC Total CO2 23 L (24-31) mmol/L Anion Gap (3-11) POC Anion Gap 17.0 (16-25) mmol/L POC BUN 21 H (7-18) mg/dl BUN (6-23) mg/dl Creatinine (0.6-1.4) mg/dl POC Creatinine 0.5 L (0.6-1.3) mg/dl Est Cr Clr Drug Dosing ml/min Est GFR ( Amer) ml/min Est GFR (Non-Af Amer) ml/min BUN/Creatinine Ratio (10-20) Glucose (70-99(Fasting)) mg/dl POC Glucose 137 H (70-99) mg/dl POC Glucose (other) 141 H (70-99) mg/dl Calcium (8.5-10.1) mg/dl POC Ioniz Calcium Margi 1.18 (1.12-1.32) mmol/l Total Bilirubin (0.2-1.0) mg/dl AST (13-39) U/L ALT (7-52) U/L Alkaline Phosphatase (34-104) U/L Total Protein (6.0-8.3) gm/dl Albumin (3.4-5.0) gm/dl Globulin (2.5-4.0) gm/dl Albumin/Globulin Ratio (0.9-2) Lipase (11-82) U/L SARS-CoV-2, RNA, NAAT (NEGATIVE) Administered Medications Discontinued Medications Cefazolin Sodium (Ancef 1000mg) 1,000 mg in 7.5 mls @ 2.5 mls/min IV TODAY@1643 [facility]; Protocol Stop: 08/24/22 19:00 Last Admin: 08/24/22 17:30 Dose: 2.5 mls/min Documented By: DAKOTA Ioversol (Optiray 350 100ml) 87 ml IV ONCE ONE Stop: 08/24/22 16:40 Last Admin: 08/24/22 16:39 Dose: 87 ml Documented By: SUJEY Lidocaine HCl (Lidocaine Viscous 2% 15 Ml Udc) Confirm Administered Dose 15 ml .ROUTE .STK-MED ONE Stop: 08/24/22 15:14 Last Admin: 08/24/22 15:35 Dose: Not Given Documented By: LEANNE Lidocaine HCl (Lidocaine 2% Jelly 5 Ml Tube) Confirm Administered Dose 5 ml EXT .STK-MED ONE Stop: 08/24/22 15:14 Last Admin: 08/24/22 15:35 Dose: 5 ml Documented By: LEANNE Morphine Sulfate (Morphine Sulfate 5 Mg/0.25 Ml Udp) 5 mg PO NOW STA Stop: 08/24/22 15:29 Last Admin: 08/24/22 15:57 Dose: 5 mg Documented By: LEANNE Imaging Data Radiologist's Impression: Abdomen/Pelvis CT 08/24/22 16:[address] WITH IV CONTRAST CT DOSE: 283.46 mGy.cm HISTORY: Generalized abdominal pain. TECHNIQUE: Multiaxial CT images of the abdomen and pelvis were performed following the use of intravenous contrast. A dose lowering technique was utilized adhering to the principles of ALARA. COMPARISON STUDY: Abdomen and pelvis CT 07/27/2022. FINDINGS: Focal area of tree-in-bud nodular opacities within the base of the left lower lobe. This favors a mild infectious bronchiolitis. The right lung base is clear. Low-density focus containing gas within the left lower quadrant best seen on image 357. This measures 3.5 x 1.7 cm. This is indeterminate but likely represents prior mesh repair of a left inguinal hernia. There is suggestion of an overlying skin incision at this location. The heart is normal in size. Ill-defined small hypodensity within the left hepatic lobe adjacent to the falciform ligament remains unchanged and favors focal fat. There are few punctate gallstones. No gallbladder wall thickening. The main portal vein is patent. The pancreas, spleen, and adrenal glands are unremarkable. The kidneys enhance normally. No hydronephrosis. Mild bilateral perinephric edema, unchanged. This is likely chronic. No retroperitoneal lymphadenopathy. Moderate calcified plaque within the normal caliber abdominal aorta. Bilateral common iliac artery aneurysms are again noted measuring 3.4 cm on the right and 3.1 cm on the left. No retroperitoneal hematoma. Moderate to severe multifocal narrowing within the external iliac arteries and visualized femoral arteries are noted. 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 The bladder is markedly distended and contains a small amount of gas. There is mild bladder wall thickening. The prostate gland remains enlarged. There is residual barium contrast within the colon. No bowel wall thickening or obstruction. Colonic diverticulosis. No evidence for acute diverticulitis. Small amount of hyperdense material is seen layering within the bladder posteriorly. This remains unchanged. IMPRESSION: 1. Small low-density focus containing gas within the left lower quadrant. This is indeterminate but likely represents residual mesh repair of a left inguinal hernia. 2. No bowel wall thickening or obstruction. 3. Cholelithiasis. 4. Bilateral common iliac artery aneurysms again noted. No retroperitoneal h ematoma. 5. The bladder is markedly distended with mild bladder wall thickening. Recomme nd catheterization. 6. Tree-in-bud nodular opacities within the left lower lobe favor mild infectious bronchiolitis and could be due to prior aspiration. 7. Additional findings as described above. ACT 112: Negative or not required by law. Electronically signed by: Alexys Stanley M.D. 08/24/2022 4:58 PM Discharge Plan Visit Data Chief Complaint: Urinary Symptoms Stated Complaint: AB PAIN, URINARY RETENTION ED Provider: Navin La Discharge Problem: Acute urinary retention, Hematuria, Leukocytosis Patient Disposition: Admitted As Inpatient Discharge Instructions Interventions: ED Discharge Assessment Last Done: 08/24/22 16:50
[2022-08-24] MEDS ORDERED: LIDOCAINE VISCOUS 2% 15 ML UDC ONE (15:13)
[2022-08-24] MEDS ORDERED: LIDOCAINE 2% JELLY 5 ML TUBE EXT ONE (15:13)
[2022-08-24] MEDS ORDERED: MoRPHine SULFATE 5 MG/0.25 ML UDP PO STA (15:28)
--- NOTE | 2022-08-24 15:54 | Urology Consultation ---
Date of Consultation August 24, 2022 Assessment & Plan (1) Gross hematuria: 77-year-old male with multiple comorbidities presented to the emergency department today with displaced Loza catheter and gross hematuria with clots. - Urology consulted for Loza catheter placement. - Multiple attempts made by nursing staff at his facility and ER without success. - No labs or imaging on initial presentation. - He is afebrile, tachycardic. - A 20 F coude catheter was advanced, but then withdrawn after no urinary output. - He has hematuria with clots. - Dr. Suero called to bedside for further evaluation. - See attending note for further details on plan of care. Supervising Physician Co-Signing Physician Notes When I arrived to the ED and evaluated the patient, and he had not had any labs, IV placed or any imaging. His abdomen was visibly distended consistent with a full bladder. He had had numerous catheter attempts and it sounded as if people were able to get into his bladder but there was no return likely due to clot hematuria. Under sterile conditions, I advanced a 22 [place] hematuria catheter into the bladder and was able to drawback a small amount of clot but was unable to irrigate. The patient was considerably uncomfortable. His exam throughout our encounter was nonperitonitic. At this point, my concern was that he either had a bladder full of clot or had potentially ruptured although he was not necessarily behaving as if he done so. I had a long conversation with him, his son (who is the POA) and his son's . Explained that my recommendation would be to go to the OR for a cystoscopy, cl ot evacuation and fulguration, with possible exploratory laparotomy and bladder repair. In the interim while we are waiting for IV access and labs to returned, I explained that I would get a CT scan to further help with preoperative planning. I made it very clear that this is a very comorbid procedure especially given his recent health issues. If I did have to ex lap him, would be a very challenging case as general surgery had just performed a left incarcerated inguinal hernia repair with mesh several weeks ago. I explained that there is a reasonable chance that he could during or after this procedure. Patient and his son agreed to the procedure. Son signed consent. While we were prepping for the OR, labs and a CT scan were obtained. White blood cell count was 15, hemoglobin was 15.9. BMP was still pending. I independently reviewed a CT scan of the abdomen pelvis with IV contrast which showed a distended but intact bladder. There did not appear to be a large amount of blood clot in the bladder. He did have an enlarged prostate. There was no hydronephrosis. There did not appear to be any concern for hernias or bowel abnormalities. During transport to the [facility] area, he did have incontinence and what I was told was a large void. I went and examined him and his abdomen was still somewhat distended. I had a conversation with him and his son and explained that I would still like to take him to the OR for cystoscopy to evacuate any remaining blood clot and ensure that we were able to get a catheter in appropriate position. They agreed. History of Present Illness History of Present Illness 77 year old male with past medical history of CAD, hyperlipidemia, diabetes, hypertension, bilateral iliac artery aneurysm, history of tobacco use, BPH, gross hematuria presented to the emergency department today from his nursing facility for replacement of Loza catheter. Patient was recently hospitalized for incarcerated inguinal hernia s/p left inguinal hernia repair on 08/07/22. During his hospital admission, he was diagnosed with aspiration pneumonia and failure to thrive. Per hospital notes, he had hematuria during his stay. He was discharged to a [facility] facility with a Loza catheter. Patient's history and ROS is unobtainable due to cognitive status. Patient is awake and resting in bed in no acute distress. Patient's son and his partner are at bedside and provide some history. They report hematuria in catheter since placement. Today his Loza was noted to have no output, so attempt was made to replace catheter. After several unsuccessful attempts by nursing staff at his facility, he was brought to the ER. Nursing staff also attempted to replace catheter without success. No labs or imaging done in ER per family request. Patient has had abdominal/suprapubic discomfort per family. Urology is consulted for Loza catheter placement. Allergies Allergy/AdvReac Type Severity Reaction Status Date / Time No Known Allergies Allergy Verified 08/07/22 08:38 Home Medications Medication Instructions Recorded Confirmed Type tamsulosin 0.4 mg capsule (Flomax) 0.4 mg PO DAILY 07/27/22 08/07/22 History L.acidop,casei,lactis,rham-B.lact,ayah 2 cap PO DAILY #7 caps 08/19/22 Rx 625 mg (10 billion cell) capsule (Advanced Probiotic) acetaminophen 325 mg tablet 325 mg PO Q8H PRN pain #10 tabs 08/19/22 Rx aspirin 81 mg tablet,delayed 81 mg PO QAM #10 tabs 08/19/22 Rx release nitroglycerin 0.4 mg sublingual 0.4 mg sublingual UD PRN chest 08/19/22 Rx tablet (Nitrostat) pain #1 tab nystatin 100,000 unit/mL oral 1 ml PO QID for one week- stop if 08/19/22 Rx suspension oral thrush gone #60 mL pantoprazole 40 mg tablet,delayed 40 mg PO QAM #10 tabs 08/19/22 Rx release sodium chloride 1 gram tablet 1 g PO BID #10 tabs 08/19/22 Rx Patient History Medical History BPH loc w urin obs/LUTS CAD in [place] artery Diabetes mellitus GERD (gastroesophageal reflux disease) Hyperlipidemia LDL goal <70 Hypertension Iliac artery aneurysm, bilateral Surgical History No pertinent past surgical history S/P left inguinal hernia repair (08/07/22) Open left inguinal hernia repair. Dr. Manuel 08/07/2022 Family History Other Coronary heart disease Stroke Social History Smoking Status: Current every day smoker Tobacco Type: Cigarettes Cigarettes Per Day: 15-20; Hx Alcohol Use: No Hx Substance Use: No Preferred Language: Syrian Communication Ability: Effective Tax Collector Required: No Beliefs That Will Affect Care: Spiritual Current Living Situation: Family Current Living Situation Comment: Lives with son Feels Safe at Home: Yes Assistive Devices: Cane and Walker Review of Systems Review of Systems: Unobtainable due to cognitive status Physical Exam Constitutional: + thin; no acute distress Respiratory: normal respiratory effort; no respiratory distress and no labored breathing Gastrointestinal (Abdomen): Inspection/Auscultation: + abdomen distended Neurologic: moves all extremities and awake Psychiatric: Orientation: alert and oriented to person Genitourinary: + circumcised Blood and clots draining from urethral meatus. After prepping using sterile technique, I attempted placement of a 20 F coude catheter. I met some resistance initially and then the catheter advanced to where I suspect it would be in the bladder. There was no urine output after leaving in place to observe, so I withdrew the catheter. There were some long clots that came out when catheter was removed. Pt tolerated without issue. Results & Data ([facility]) Vital Signs (Past 12 Hours) Vital Signs Temp Pulse Resp BP Pulse Ox O2 Del Method 08/24/22 13:51 36.7 C 115 H 20 134/91 94 Room Air PG Care Time/CCT Total # of Minutes Spent Total Time Spent with Patient: Total time spent is greater than 50% in coordination of care (as documented) at patient's floor/unit and/or counseling patient: Coding Level of Care Code 13472 Initial Inpt Care Lvl 2 Diagnoses Gross hematuria R31.0
--- NOTE | 2022-08-24 16:23 | History & Physical Report ---
Date of Service August 24, 2022 History of Present Illness Chief Complaint: No urinary output from Loza catheter Primary Care Provider: [facility] Malcolm Marcial is a 77-year-old male with past medical history significant for HTN, HLD, GERD, SIADH, BPH, b/l iliac artery aneurysm, and recent incarcerated inguinal s/p repair on 08/07 complicated by aspiration pneumonia who presents to the ED from his nursing facility for Loza catheter placement. It was noted today that his Loza catheter had no output, so multiple attempts at the facility were made to replace it, however unsuccessful. ED nursing staff also attempted to replace the catheter today, again without any success. Urology was consulted in ED, who successfully placed a 2 20 2F catheter into the bladder, with a small amount of clot drawn back, unable to irrigate. The decision was made to bring the patient to CT to rule out bladder rupture. CT scan reviewed by urology, which showed distended but intact bladder without evidence of large amount of blood clots. Current plan will be to proceed to the OR for cystoscopy to evaluate for remaining blood clot and catheter placement. Patient hospitalized 08/07 for 08/19 due to incarcerated hernia complicated by an aspiration pneumonia and failure to thrive. There is concern for bladder cancer given he had intermittent hematuria without evidence of UTI on imaging. Palliative consult was placed during this hospitalization and the decision was made to focus on comfort care and symptomatic treatment. Upon discharge 08/19, patient was discharged to [facility] with plan to transition to hospice care when Medicaid insurance approved. Allergies Allergy/AdvReac Type Severity Reaction Status Date / Time No Known Allergies Allergy Verified 08/07/22 08:38 Home Medications Medication Instructions Recorded Confirmed Type tamsulosin 0.4 mg capsule (Flomax) 0.4 mg PO DAILY 07/27/22 08/07/22 History L.acidop,casei,lactis,rham-B.lact,ayah 2 cap PO DAILY #7 caps 08/19/22 Rx 625 mg (10 billion cell) capsule (Advanced Probiotic) acetaminophen 325 mg tablet 325 mg PO Q8H PRN pain #10 tabs 08/19/22 Rx aspirin 81 mg tablet,delayed 81 mg PO QAM #10 tabs 08/19/22 Rx release nitroglycerin 0.4 mg sublingual 0.4 mg sublingual UD PRN chest 08/19/22 Rx tablet (Nitrostat) pain #1 tab nystatin 100,000 unit/mL oral 1 ml PO QID for one week- stop if 08/19/22 Rx suspension oral thrush gone #60 mL pantoprazole 40 mg tablet,delayed 40 mg PO QAM #10 tabs 08/19/22 Rx release sodium chloride 1 gram tablet 1 g PO BID #10 tabs 08/19/22 Rx Past Med/Surg History Medical History BPH loc w urin obs/LUTS CAD in [place] artery Diabetes mellitus GERD (gastroesophageal reflux disease) Hyperlipidemia LDL goal <70 Hypertension Iliac artery aneurysm, bilateral Surgical History No pertinent past surgical history S/P left inguinal hernia repair (08/07/22) Open left inguinal hernia repair. Dr. Manuel 08/07/2022 Family History Other Coronary heart disease Stroke Social History Smoking Status: Current every day smoker Tobacco Type: Cigarettes Cigarettes Per Day: 15-20; Second Hand Exposure: No; Do You Dip or Chew Tobacco: No; Tobacco Cessation Education Requested by Patient: No Hx Alcohol Use: No Hx Substance Use: No Preferred Language: Moroccan Communication Ability: Effective Yarn Hauler Required: No Beliefs That Will Affect Care: None Current Living Situation: Other Current Living Situation Comment: SNF Feels Safe at Home: Yes Safety Concerns: Feels Safe At This Time Assistive Devices: Cane and Walker Review of Systems Review of Systems: Unobtainable due to cognitive status Physical Exam Physical Exam: General: awake, alert, no apparent distress, appears frail Head: Normocephalic, atraumatic ENT: PERRL, EOMI, no pharyngeal exudate, mucous membranes moist Chest: Clear to auscultation, on room air, no adventitious breath sounds Cardiac: Regular rate and rhythm, no murmur, no JVD, normal peripheral pulses, good capillary refill Abdominal: Distended abdomen with pain on light palpation, NABS throughout, no rebound or guarding Extremities: Normal inspection, no peripheral edema or erythema, calfs nontender to palpation Psych: Normal mood and affect Neuro: AAO x 3, strength intact bilaterally and rated 5/5, no motor deficits, speech is clear, no peripheral sensory deficits Skin: no rash or erythema Results & Data Results & Data ([facility]) Vital Signs (Past 12 Hours) Vital Signs Temp Pulse Pulse Resp BP BP Pulse Ox 08/24/22 15:58 132 H 22 142/96 H 97 08/24/22 13:51 36.7 C 115 H 20 134/91 94 O2 Del Method 08/24/22 15:58 Room Air 08/24/22 13:51 Room Air Laboratory Results Abnormal lab results 08/24/22 08/24/22 08/24/22 Range/Units 16:17 16:17 16:22 WBC 15.00 H (4.8-10.8) K/ul RDW Std Deviation 46.8 H (36.4-46.3) fL Neut # (Auto) 12.14 H (1.4-6.5) K/uL [place] # (Auto) 1.19 H (0.24-0.82) K/uL Immature Gran # (Auto) 0.05 H (0.00-0.02) K/uL POC Total CO2 23 L (24-31) mmol/L Anion Gap 14 H (3-11) POC BUN 21 H (7-18) mg/dl Creatinine 0.51 L (0.6-1.4) mg/dl POC Creatinine 0.5 L (0.6-1.3) mg/dl BUN/Creatinine Ratio 43.1 H (10-20) Glucose 136 H (70-99(Fasting)) mg/dl POC Glucose (other) 141 H (70-99) mg/dl AST 11 L (13-39) U/L Diagnostic Findings Abdomen/Pelvis CT 08/24/22 16:[address] WITH IV CONTRAST CT DOSE: 283.46 mGy.cm HISTORY: Generalized abdominal pain. TECHNIQUE: Multiaxial CT images of the abdomen and pelvis were performed following the use of intravenous contrast. A dose lowering technique was utilized adhering to the principles of ALARA. COMPARISON STUDY: Abdomen and pelvis CT 07/27/2022. FINDINGS: Focal area of tree-in-bud nodular opacities within the base of the left lower lobe. This favors a mild infectious bronchiolitis. The right lung base is clear. Low-density focus containing gas within the left lower quadrant best seen on image 357. This measures 3.5 x 1.7 cm. This is indeterminate but likely represents prior mesh repair of a left inguinal hernia. There is suggestion of an overlying skin incision at this location. The heart is normal in size. Ill-defined small hypodensity within the left hepatic lobe adjacent to the falciform ligament remains unchanged and favors focal fat. There are few punctate gallstones. No gallbladder wall thickening. The main portal vein is patent. The pancreas, spleen, and adrenal glands are unremarkable. The kidneys enhance normally. No hydronephrosis. Mild bilateral perinephric edema, unchanged. This is likely chronic. No retroperitoneal lymphadenopathy. Moderate calcified plaque within the normal caliber abdominal aorta. Bilateral common iliac artery aneurysms are again noted measuring 3.4 cm on the right and 3.1 cm on the left. No retroperitoneal hematoma. Moderate to severe multifocal narrowing within the external iliac arteries and visualized femoral arteries are noted. 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 The bladder is markedly distended and contains a small amount of gas. There is mild bladder wall thickening. The prostate gland remains enlarged. There is residual barium contrast within the colon. No bowel wall thickening or obstruction. Colonic diverticulosis. No evidence for acute diverticulitis. Small amount of hyperdense material is seen layering within the bladder posteriorly. This remains unchanged. IMPRESSION: 1. Small low-density focus containing gas within the left lower quadrant. This is indeterminate but likely represents residual mesh repair of a left inguinal hernia. 2. No bowel wall thickening or obstruction. 3. Cholelithiasis. 4. Bilateral common iliac artery aneurysms again noted. No retroperitoneal hematoma. 5. The bladder is markedly distended with mild bladder wall thickening. Recommend catheterization. 6. Tree-in-bud nodular opacities within the left lower lobe favor mild infectious bronchiolitis and could be due to prior aspiration. 7. Additional findings as described above. ACT 112: Negative or not required by law. Electronically signed by: Alexys Stanley M.D. 08/24/2022 4:58 PM Supervising Physician Co-Signing Physician Notes Patient was seen and examined independently I discussed the case with Katharine Mascorro PAC I reviewed pertinent past medical social family history and also the plan of care and agree with the plan of care. Patient was seen in the preop area in company of his family going for a cystoscopy assisted Loza catheter. There was some discussion of continued palliative care. We will going to address this once the patient has his urinary output assured. Physical exam he is awake and conversant he is obviously confused at times his abdomen is with normal bowel sounds but very tense and tender with what appears to be a palpable bladder. Cardiovascularly is stable at this time Any exceptions will be noted below PG Care Time/CCT Total # of Minutes Spent Total Time Spent with Patient: Total time spent is greater than 50% in coordination of care (as documented) at patient's floor/unit and/or counseling patient: Coding Level of Care Code 14429 Initial Inpt Care Lvl 3
[2022-08-24 16:29] LABS: Basophils # (auto) 0.03 K/uL (0-0.2); Basophils % (auto) 0.2 %; Eosinophils # (auto) 0.01 K/uL (0-0.50); Eosinophils % (auto) 0.1 %; Hemoglobin 15.9 g/dl (14.0-18.0); Immature Granulocytes # (auto) 0.05 K/uL (0.00-0.02); Immature Granulocytes % (auto) 0.3 %; Lymphocytes # (auto) 1.58 K/uL (1.2-3.4); Lymphocytes % (auto) 10.5 %; Mean Corpuscular Hgb Conc 34.6 g/dL (32.0-36.0); Mean Corpuscular Volume 92.6 fL (80.0-100.0); Mean Platelet Volume 9.8 fL (9.4-12.4); Monocytes # (auto) 1.19 K/uL (0.24-0.82); Monocytes % (auto) 7.9 %; Neutrophils # (auto) 12.14 K/uL (1.4-6.5); Platelet Count 240 K/uL (130-400); RDW Coefficient of Variation 13.8 % (11.5-14.5); RDW Standard Deviation 46.8 fL (36.4-46.3); Red Blood Count 4.97 M/uL (4.63-6.08)
[2022-08-24 16:34] LABS: iSTAT Creatinine 0.5 mg/dl (0.6-1.3); iSTAT Hemoglobin 16.3 g/dl (14.0-18.0); iSTAT Ionized Calcium 1.18 mmol/l (1.12-1.32); iSTAT Potassium 3.6 mmol/L (3.3-5.0)
--- NOTE | 2022-08-24 16:36 | Anesthesiology Consultation ---
Date of Service August 24, 2022 Assessment & Plan (1) Encounter for pre-operative examination: Chart Review Chart Review: Acceptable Risk for Surgery (emergency surgery) and Patient NOT seen in Pre Admission Testing Consults Requested none History Surgery Operation Date: 08/24/22 12:15 Proposed Procedures p Cystoscopy Clot Evacuation and Fulguration - Robbie Suero MD s Possible Exploratory Laparotomy - Robbie Suero MD Height/Weight Height: 5 ft 8 in Weight: 61.2 kg Allergies Allergy/AdvReac Type Severity Reaction Status Date / Time No Known Allergies Allergy Verified 08/07/22 08:38 Medications Home Medications Medication Instructions Recorded Confirmed Last Taken tamsulosin 0.4 mg capsule (Flomax) 0.4 mg PO DAILY 07/27/22 08/07/22 08/06/22 L.acidop,casei,lactis,rham-B.lact,ayah 2 cap PO DAILY #7 caps 08/19/22 Unknown 625 mg (10 billion cell) capsule (Advanced Probiotic) acetaminophen 325 mg tablet 325 mg PO Q8H PRN pain #10 tabs 08/19/22 Unknown aspirin 81 mg tablet,delayed 81 mg PO QAM #10 tabs 08/19/22 Unknown release nitroglycerin 0.4 mg sublingual 0.4 mg sublingual UD PRN chest 08/19/22 Unknown tablet (Nitrostat) pain #1 tab nystatin 100,000 unit/mL oral 1 ml PO QID for one week- stop if 08/19/22 Unknown suspension oral thrush gone #60 mL pantoprazole 40 mg tablet,delayed 40 mg PO QAM #10 tabs 08/19/22 Unknown release sodium chloride 1 gram tablet 1 g PO BID #10 tabs 08/19/22 Unknown Past Medical History Medical History BPH loc w urin obs/LUTS CAD in [place] artery Diabetes mellitus GERD (gastroesophageal reflux disease) Hyperlipidemia LDL goal <70 Hypertension Iliac artery aneurysm, bilateral Past Family History Family History Other Coronary heart disease Stroke Past Surgical History Surgical History No pertinent past surgical history S/P left inguinal hernia repair (08/07/22) Open left inguinal hernia repair. Dr. Manuel 08/07/2022 Social History Smoking Status: Current every day smoker tobacco type: cigarettes Smoking cigarettes per day: 15-20 Hx Alcohol Use: No Hx Substance Use: No Physical Exam Vital Signs Last Vital Signs Temp 36.7 C 08/24/22 13:51 Pulse 132 H 08/24/22 15:58 Resp 22 08/24/22 15:58 BP 142/96 H 08/24/22 15:58 Pulse Ox 97 08/24/22 15:58 O2 Del Method 08/24/22 15:58 Testing Laboratory Results 08/24/22 16:17 08/24/22 16:22 POC Glucose (other) 141 H Electrocardiogram Date: 08/08/22 DICTATED BY:Rinku Billings MD Test Reason : Blood Pressure : / mmHG Vent. 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 Weight loss. Smoking history. COMPARISON STUDY: Chest x-ray dated 08/07/2022. Chest CT dated 05/21/2021. TECHNIQUE: CT scan of the thorax was performed from the thoracic inlet to the upper abdomen. Images are reviewed in the axial, sagittal, and coronal planes. IV contrast was not administered for this examination as per the referring clinician. A dose lowering technique was utilized adhering to the principles of ALARA. The examination is compromised by motion artifact. CT DOSE: 373.54 mGy.cm FINDINGS: Thyroid: Imaged portions of the thyroid gland are normal in size and attenuation. Thoracic aorta: There is atherosclerotic calcification of the thoracic aorta, which is normal in caliber and demonstrates standard 3-vessel arch anatomy. Heart: The heart is mildly enlarged and without pericardial effusion. The coronary arteries are densely calcified. Lungs and pleural spaces: Evaluation of the lung parenchyma is degraded by motion artifact. Emphysematous change is observed. The trachea is clear. Debris/secretions are present in the left mainstem bronchus in the left lower lobe airways. There is left basilar consolidation. No pleural effusion is identified. Mediastinum: There is no mediastinal lymphadenopathy. Karon: Not well assessed without IV contrast. Axillae: There is no axillary lymphadenopathy. Upper abdomen: There are numerous calcified gallstones. A small hiatal hernia is noted. Skeletal structures: The skeletal structures are osteopenic. No lytic or blastic bony lesions are seen. Spondylotic change is seen throughout the spine. IMPRESSION: 1. Cardiomegaly and emphysema. 2. There is airspace consolidation at the left lung base. Additionally, there is secretions/debris within the left mainstem bronchus and throughout the left lower lobe airways. The appearance is typical for pneumonia/aspiration pneumonitis. Clinical correlation will be required. Consider a three-month foll ow-up chest CT to document resolution. 3. The right lung appears clear. 4. Cholelithiasis. 5. Additional findings as above. ACT 112: Negative or not required by law. Electronically signed by: Kelechi Choi M.D. 08/10/2022 5:54 PM Dictated:08/10/221748 Transcribed: 08/10/221748
[2022-08-24] MEDS ORDERED: HYDROmorphone INJ 1 MG/ML SYRINGE IV PRN (16:37)
[2022-08-24] MEDS ORDERED: ATROPINE SULFATE 0.1 MG/ML 10ML SYR IV PRN (16:37)
[2022-08-24] MEDS ORDERED: ePHEDrine sulfate 50 MG/ML AMP IV PRN (16:37)
[2022-08-24] MEDS ORDERED: LABETALOL HCL IV 5 MG/ML 20ML IV PRN (16:37)
[2022-08-24] MEDS ORDERED: PHENYLEPHRINE 100MCG/ML 5ML SYR IV PRN (16:37)
[2022-08-24] MEDS ORDERED: MEPERIDINE HCL 25 MG/ML CARP/VIAL IV PRN (16:37)
[2022-08-24] MEDS ORDERED: ONDANSETRON INJ 2 MG/ML 2 ML VIAL IV PRN ×2 (16:37→19:14)
[2022-08-24] MEDS ORDERED: fentaNYL citrate 100 MCG/2 ML VIAL IV PRN (16:37)
[2022-08-24] MEDS ORDERED: OPTIRAY 350 100ml IV ONE (16:39)
[2022-08-24] MEDS ORDERED: ceFAZolin 1000MG 1,000 MG/7.5 ML SYR IV SCH (16:43)
[2022-08-24] MEDS ORDERED: PROPOFOL IV EMULSION 10 MG/ML 20 ML VIAL IV ONE (16:51)
[2022-08-24] MEDS ORDERED: ePHEDrine sulfate 50 MG/ML SYR ONE (16:51)
[2022-08-24] MEDS ORDERED: fentaNYL citrate 100 MCG/2 ML VIAL ONE (16:51)
[2022-08-24] MEDS ORDERED: LIDOCAINE 2% MPF LOCAL 5 ML VIAL INFIL ONE (16:51)
[2022-08-24] MEDS ORDERED: PHENYLEPHRINE 100MCG/ML 5ML SYR ONE (16:51)
[2022-08-24] MEDS ORDERED: ONDANSETRON INJ 2 MG/ML 2 ML VIAL ONE (16:51)
[2022-08-24] MEDS ORDERED: DEXAMETHASONE SOD INJ 4 MG/ML VIAL ONE (16:51)
[2022-08-24 16:57] LABS: Albumin Level 3.4 gm/dl (3.4-5.0); BUN Creatinine Ratio 43.1 (10-20); Bilirubin,Total 0.8 mg/dl (0.2-1.0); Calcium 9.3 mg/dl (8.5-10.1); Creatinine Clr Calc Pharmacy 103.3 ml/min; Est GFR (African American) 119.3 ml/min; Globulin 3.3 gm/dl (2.5-4.0); Potassium 3.7 mmol/L (3.5-5.1); Total Protein 6.7 gm/dl (6.0-8.3)
--- NOTE | 2022-08-24 17:00 | CT Scan Report ---
ABDOMEN AND PELVIS CT WITH IV CONTRAST CT DOSE: 283.46 mGy.cm HISTORY: Generalized abdominal pain. TECHNIQUE: Multiaxial CT images of the abdomen and pelvis were performed following the use of intrave nous contrast. A dose lowering technique was utilized adhering to the principles of ALARA. COMPARISON STUDY: Abdomen and pelvis CT 07/27/2022. FINDINGS: Focal area of tree-in-bud nodular opacities within the base of the left lower lobe. This fa vors a mild infectious bronchiolitis. The right lung base is clear. Low-density focus containing gas within the left lower quadrant best seen on image 357. This measures 3.5 x 1.7 cm. This is indetermin ate but likely represents prior mesh repair of a left inguinal hernia. There is suggestion of an over lying skin incision at this location. The heart is normal in size. Ill-defined small hypodensity with in the left hepatic lobe adjacent to the falciform ligament remains unchanged and favors focal fat. T here are few punctate gallstones. No gallbladder wall thickening. The main portal vein is patent. The pancreas, spleen, and adrenal glands are unremarkable. The kidneys enhance normally. No hydronephros is. Mild bilateral perinephric edema, unchanged. This is likely chronic. No retroperitoneal lymphaden opathy. Moderate calcified plaque within the normal caliber abdominal aorta. Bilateral common iliac a rtery aneurysms are again noted measuring 3.4 cm on the right and 3.1 cm on the left. No retroperiton eal hematoma. Moderate to severe multifocal narrowing within the external iliac arteries and visualiz ed femoral arteries are noted. The proximal right superficial femoral artery remains chronically occl uded. The bladder is markedly distended and contains a small amount of gas. There is mild bladder wal l thickening. The prostate gland remains enlarged. There is residual barium contrast within the colon . No bowel wall thickening or obstruction. Colonic diverticulosis. No evidence for acute diverticulit is. Small amount of hyperdense material is seen layering within the bladder posteriorly. This remains unchanged. IMPRESSION: 1. Small low-density focus containing gas within the left lower quadrant. This is indeterminate but l ikely represents residual mesh repair of a left inguinal hernia. 2. No bowel wall thickening or obstruction. 3. Cholelithiasis. 4. Bilateral common iliac artery aneurysms again noted. No retroperitoneal hematoma. 5. The bladder is markedly distended with mild bladder wall thickening. Recommend catheterization. 6. Tree-in-bud nodular opacities within the left lower lobe favor mild infectious bronchiolitis and c ould be due to prior aspiration. 7. Additional findings as described above. ACT 112: Negative or not required by law. Electronically signed by: Alexys Stanley M.D. 08/24/2022 4:58 PM
--- NOTE | 2022-08-24 17:56 | Post Operative Brief Note ---
PG Immediate Post Op with CF Date of Surgery August 24, 2022 Pre & Post Diagnosis Operation Date: 08/24/22 12:15 Pre-Op Diagnosis: Gross Hematuria Post-Op Diagnosis: Gross Hematuria I identified the patient and participated in the time-out.: Yes Procedure Operation Date: 08/24/22 12:15 Actual Procedures p Cystoscopy Clot Evacuation and Fulguration, Catheter Placement(Not Applicable) - Robbie Suero MD Surgeon Robbie Suero MD Superintendent [employer] None Estimated Blood Loss 5 Findings See Below Trilobar hyperplasia with some clot in urethra. 30cc of clot in bladder. Capacious bladder with diverticulum. Chronic edema and erythema from hua. No perforation. Small amount of ooze from median lobe of prostate but no significant active bleeding. Specimens Specimen Description: None per surgeon Drains Hua Catheter (24 fr) Anesthesia Type General Complications none
--- NOTE | 2022-08-24 18:12 | Operative Report ---
PG Post Operative Report Pre & Post Diagnosis Operation Date: 08/24/22 12:15 Pre-Op Diagnosis: Gross Hematuria Post-Op Diagnosis: Gross Hematuria I identified the patient and participated in the time-out.: Yes Procedure Operation Date: 08/24/22 12:15 Actual Procedures p Cystoscopy Clot Evacuation and Fulguration, Catheter Placement(Not Applicable) - Robbie Suero MD Surgeon Robbie Suero MD Legal Researcher None Estimated Blood Loss 5 Findings See Below Trilobar hyperplasia. Capacious bladder with erythema and edema consistent with Loza catheter. No perforation. 30 cc of clot which was evacuated out. There is a small amount of oozing from the median lobe of the prostate but overall no significant active bleeding. This was fulgurated. A catheter was placed without issue and the bladder irrigated easily. Significant abdominal distention seen in ED resolved once bladder was drained. Specimens None Drains 24 [place] three-way catheter with 10 cc in balloon, capped Anesthesia Type General Complications none Indications 77-year-old comorbid gentleman who presented to the hospital with hematuria and poorly draining catheter. He recently has had a left incarcerated inguinal hernia repair and then developed pneumonia and family has been discussing comfort care measures. His catheter was unable to be exchanged in the emergency department by multiple people. When I saw him, he had significant abdominal distention. I was able to get a catheter into his bladder but was unable to irrigate due to hematuria. Risk and benefits were discussed and ultimately took to the OR emergently for cystoscopy, clot evacuation, fulguration and possible exploratory laparotomy if there was a bladder perforation as I had no imaging at that time. A CT scan was obtained between booking the case and going to the OR and this did show an intact bladder. Description of Procedure After informed consent was obtained, the patient was transported to the opera tive suite. General anesthesia was induced. They were placed in dorsal lithotomy position and prepped and draped in sterile fashion. They received preoperative Ancef. An appropriate surgical timeout was performed. 21 [place] rigid cystoscope was inserted per urethra into the bladder with the above-noted findings. Several pieces of clot were evacuated. I did use an [employer] evacuator once to remove further clot. I then swapped the cystoscope out to a resectoscope for better irrigation. The rest of the clot was evacuated. I carefully performed anna cystoscopy which did not show any perforation or obvious tumors. There was a small amount of oozing at the median lobe and I fulgurated this with a button. Urine was clear at this point. Bladder was left full and resectoscope was removed. I then placed a 24 [place] three-way catheter with return of clear urine. The balloon was inflated with 10 cc of sterile water. The catheter was irrigated with a Maricruz syringe without difficulty. This concluded the end of the case. All counts correct at the end of the case. I was present scrubbed and actively participated for the entirety of the procedure. I attest to the content of the Intraoperative Record and any orders documented therein. Any exceptions are noted below.
--- NOTE | 2022-08-24 18:59 | Anesthesiology Progress Note ---
Date of Service August 24, 2022 Anesthesia Post Procedure Vital Signs Vital Signs: Temp Pulse Pulse Pulse Resp BP BP 08/24/22 18:55 102 H 19 100/68 08/24/22 18:40 36.5 C 105 H 16 95/65 L 08/24/22 18:30 103 H 15 104/70 08/24/22 18:20 99 H 14 115/74 08/24/22 18:10 95 H 13 111/71 08/24/22 18:04 36.2 C L 91 H 16 110/78 08/24/22 16:45 37.2 C 110 H 18 08/24/22 15:58 132 H 22 08/24/22 13:51 36.7 C 115 H 20 134/91 BP Pulse Ox O2 Del Method O2 Flow Rate 08/24/22 18:55 6 L Room Air 08/24/22 18:40 97 Room Air 08/24/22 18:30 97 Room Air 08/24/22 18:20 100 Oxymask 4 08/24/22 18:10 100 Oxymask 4 08/24/22 18:04 100 Oxymask 4 08/24/22 16:45 114/81 97 Room Air 08/24/22 15:58 142/96 H 97 Room Air 08/24/22 13:51 94 Room Air Transfer of Care Handoff Completed per policy Notes Mental Status: alert / awake / arousable Patient Amnestic to Procedure: Yes Nausea / Vomiting: adequately controlled Pain: adequately controlled Airway Patency, RR, SpO2: stable & adequate BP & HR: stable & adequate Hydration State: stable & adequate Anesthetic Complications: no major complications apparent and Pt Satisfied with anesthetic care Notes: The patient is awake and comfortable. His vital signs are stable at his baseline.
[2022-08-24] MEDS ORDERED: MoRPHine SULFATE 5 MG/0.25 ML UDP PO PRN (19:14)
[2022-08-24] MEDS ORDERED: ACETAMINOPHEN 325 MG TAB PO PRN (19:14)
[2022-08-24] MEDS ORDERED: MoRPHine SULFATE 2 MG/ML CARP IV PRN (19:14)
[2022-08-24] MEDS ORDERED: NITROGLYCERIN SL 0.4 MG/TAB TAB SL PRN (19:14)
[2022-08-24] MEDS ORDERED: LORazepam 0.5 MG TAB PO PRN (19:14)
[2022-08-24] MEDS ORDERED: ONDANSETRON 4 MG OD TAB SL PRN (19:14)
[2022-08-24] MEDS ORDERED: LORazepam 0.5 MG in SYRINGE 0 ML IV PRN (19:14)
[2022-08-24 19:56] LABS: Appearance Urine Cloudy (Clear); Bacteria Urine Automated Negative (Negative); Bilirubin Urine Negative (Negative); Blood Urine 3+ (Negative); Color Urine Yellow; Glucose Urine UA Negative (Negative); Ketones Urine 1+ (Negative); Leukocyte Esterase Urine Trace (Negative); Nitrite Urine Negative (Negative); Protein Urine 3+ (Negative); RBC Urine Automated >30 /hpf (0-4); Specific Gravity Urine > 1.045 (1.000-1.030); Urobilinogen Urine Negative (Negative); WBC Urine Automated >30 /hpf (0-5); pH Urine 6.5 (4.5-7.5)
[2022-08-25] MEDS ORDERED: ceFAZolin 1000MG 1,000 MG/7.5 ML SYR IV SCH (01:30)
[2022-08-25] MEDS: ceFAZolin 1000MG 1,000 MG/7.5 ML SYR IV SCH ×3 (02:18→18:15)
--- NOTE | 2022-08-25 07:40 | Urology Progress Note ---
Date of Service August 25, 2022 Assessment & Plan (1) Acute urinary retention: (2) Hematuria: Plan 77 yo M s/p cystoscopy, clot evacuation, fulguration and hua placement on 08/24/22 Normal abdominal exam Hua catheter draining relatively clear urine Maintain Hua catheter. Urology will set up outpatient follow-up to discuss options Follow-up labs and urine culture Not unreasonable for patient to be discharged later today from a urologic perspective if otherwise doing well Admission and Anticipated Discharge Date Admission Date: August 24, 2022 Subjective Patient went to OR yesterday evening for cystoscopy, clot evacuation, fulguration and hua placement. Currently afebrile with stable vitals. Tachycardic overnight. Urine output slightly low. Labs pending this morning. Urine is prabha with small amount of blood-tinged. Patient denies any discomfort or issues this morning. Review of Systems Review of Systems: 14 point review of systems negative outside of what is listed above in HPI Physical Exam Physical Exam: General: Alert and oriented, no acute distress HEENT: Normocephalic, mucous membranes moist Cardiovascular: Regular rate Pulmonary: Nonlabored respirations Abdomen: Nondistended, nontender, soft : 24 Kazakh three-way catheter, capped draining prabha urine with blood-tinged Extremities: Moves all 4 spontaneously Neuro: No gross deficits Skin: Warm, dry, no rashes noted Results & Data ([facility]) Vital Signs (Past 12 Hours) Vital Signs Temp Pulse Resp BP Pulse Ox O2 Del Method 08/25/22 03:27 36.6 C 83 14 111/57 L 94 Room Air 08/24/22 22:33 36.5 C 97 H 16 107/66 97 Room Air 08/24/22 21:37 36.5 C 95 H 18 135/79 95 Room Air 08/24/22 20:17 36.4 C L 105 H 16 105/68 95 Room Air 08/24/22 19:46 36.6 C 107 H 16 107/72 95 Room Air PG Care Time/CCT Total # of Minutes Spent Total Time Spent with Patient: Total time spent is greater than 50% in coordination of care (as documented) at patient's floor/unit and/or counseling patient: Coding Level of Care Code 30844 Subseq Hosp Care Lvl 2 Diagnoses Acute urinary retention R33.8 Hematuria R31.9
--- NOTE | 2022-08-25 15:03 | Hospitalist Progress Note ---
Date of Service August 25, 2022 Assessment & Plan (1) Acute urinary retention: Plan: Patient presented from his [place] resident on account of acute urinary retention He is now s/p cystoscopy, clot evacuation, fulguration and hua placement on 08/24/22 Per Urology, to maintain hua until outpatient follow up (2) Hematuria: Plan: Resolved Plan d/c back to [place] tomorrow Admission and Anticipated Discharge Date Admission Date: August 24, 2022 Subjective Patient seen and examined, son by the bedside, no new complainyts Review of Systems Review of Systems: All systems reviewed are negative, apart from the ones contained in the history. Physical Exam Physical Exam: The patient is awake, alert and oriented 3, well developed and well nourished, normocephalic and atraumatic, lying in bed and in no acute distress. HEENT--PERRL, EOMI, mucous membranes and oropharynx mildly dry Neck--supple. No JVD. No bruits. Thyroid normal, trachea midline, no adenopathy. Heart--normal S1 and S2. No murmurs, rubs or gallops. Lungs--clear bilaterally, no respiratory distress, no accessory muscle use. Abdomen--normal bowel sounds and soft. Mild epigastric and left sided abdominal pain Extremities--no cyanosis or clubbing. No edema. Dermatologic--normal skin turgor, normal color, no abnormal lymph nodes, no rash. Neurologic--cranial nerves II through XII grossly intact. Rheumatologic--normal range of motion. Psychiatric--normal affect. Results & Data Results & Data ([facility]) Vital Signs (Past 12 Hours) Vital Signs Temp Pulse Resp BP Pulse Ox O2 Del Method 08/25/22 08:06 97.5 F L 83 16 106/66 95 Room Air 08/25/22 03:27 97.9 F 83 14 111/57 L 94 Room Air PG Care Time/CCT Total # of Minutes Spent Total Time Spent with Patient: Total time spent is greater than 50% in coordination of care (as documented) at patient's floor/unit and/or counseling patient: Coding Level of Care Code 77956 Subseq Hosp Care Lvl 2 Diagnoses Acute urinary retention R33.8 Hematuria R31.9 Time Spent (min) 35
[2022-08-26] MEDS: ceFAZolin 1000MG 1,000 MG/7.5 ML SYR IV SCH ×3 (01:49→18:18)
--- NOTE | 2022-08-26 09:14 | Urology Progress Note ---
Date of Service August 26, 2022 Assessment & Plan (1) Hematuria: (2) Acute urinary retention: Plan 77 yo M s/p cystoscopy, clot evacuation, fulguration and hua placement on 08/24/22 Normal abdominal exam Hua catheter draining relatively clear urine Maintain Hua catheter. Discharge with hua catheter. Urology has sent message for follow up in clinic -Patient stable for discharge home from a urologic perspective Admission and Anticipated Discharge Date Admission Date: August 24, 2022 Subjective Hua catheter draining without issue. Patient denies any abdominal pain or discomfort from catheter. Review of Systems Review of Systems: 14 point review of systems negative outside of what is listed above in HPI Physical Exam Physical Exam: General: Alert and oriented, no acute distress HEENT: Normocephalic, mucous membranes moist Cardiovascular: Regular rate Pulmonary: Nonlabored respirations Abdomen: Nondistended, Soft, Nontender : 24 Lao three-way catheter, Draining [place] Urine, Extremities: Moves all 4 spontaneously Neuro: No gross deficits Skin: Warm, dry, no rashes noted Results & Data ([facility]) Vital Signs (Past 12 Hours) Vital Signs Temp Pulse Resp BP Pulse Ox O2 Del Method 08/26/22 07:43 36.3 C L 76 16 112/69 94 Room Air 08/25/22 22:53 36.5 C 76 16 114/70 95 Room Air PG Care Time/CCT Total # of Minutes Spent Total Time Spent with Patient: Total time spent is greater than 50% in coordination of care (as documented) at patient's floor/unit and/or counseling patient: Coding Level of Care Code 70163 Subseq Hosp Care Lvl 2 Diagnoses Hematuria R31.9 Acute urinary retention R33.8
--- NOTE | 2022-08-26 15:04 | Hospitalist Progress Note ---
Date of Service August 26, 2022 Assessment & Plan (1) Acute urinary retention: Plan: Patient presented from his [place] resident on account of acute urinary retention He is now s/p cystoscopy, clot evacuation, fulguration and hua placement on 08/24/22 Per Urology, to maintain hua until outpatient follow up Urine clear, no evidence of blood (2) Hematuria: Plan: Resolved Plan d/c back to [place] when accepted Admission and Anticipated Discharge Date Admission Date: August 24, 2022 Subjective patient seen and examined, hua without blood Review of Systems Review of Systems: All systems reviewed are negative, apart from the ones contained in the history. Physical Exam Physical Exam: The patient is awake, alert and oriented 3, well developed and well nourished, normocephalic and atraumatic, lying in bed and in no acute distress. HEENT--PERRL, EOMI, mucous membranes and oropharynx mildly dry Neck--supple. No JVD. No bruits. Thyroid normal, trachea midline, no adenopathy. Heart--normal S1 and S2. No murmurs, rubs or gallops. Lungs--clear bilaterally, no respiratory distress, no accessory muscle use. Abdomen--normal bowel sounds and soft. Mild epigastric and left sided abdominal pain Extremities--no cyanosis or clubbing. No edema. Dermatologic--normal skin turgor, normal color, no abnormal lymph nodes, no rash. Neurologic--cranial nerves II through XII grossly intact. Rheumatologic--normal range of motion. Psychiatric--normal affect. Results & Data Results & Data ([facility]) Vital Signs (Past 12 Hours) Vital Signs Temp Pulse Resp BP Pulse Ox O2 Del Method 08/26/22 07:43 97.3 F L 76 16 112/69 94 Room Air PG Care Time/CCT Total # of Minutes Spent Total Time Spent with Patient: Total time spent is greater than 50% in coordination of care (as documented) at patient's floor/unit and/or counseling patient: Coding Level of Care Code 10901 Subseq Hosp Care Lvl 2 Diagnoses Acute urinary retention R33.8 Hematuria R31.9 Time Spent (min) 35
[2022-08-27] MEDS: ceFAZolin 1000MG 1,000 MG/7.5 ML SYR IV SCH ×3 (01:21→18:27)
--- NOTE | 2022-08-27 14:07 | Hospitalist Progress Note ---
Date of Service August 27, 2022 Assessment & Plan (1) Acute urinary retention: Plan: Patient presented from his [place] resident on account of acute urinary retention He is now s/p cystoscopy, clot evacuation, fulguration and hua placement on 08/24/22 Per Urology, to maintain hua until outpatient follow up Urine clear, no evidence of blood (2) Hematuria: Plan: Resolved Plan d/c back to [place] when accepted Admission and Anticipated Discharge Date Admission Date: August 24, 2022 Subjective patient seen and examined, hua without blood, no new complaints Review of Systems Review of Systems: All systems reviewed are negative, apart from the ones contained in the history. Physical Exam Physical Exam: The patient is awake, alert and oriented 3, well developed and well nourished, normocephalic and atraumatic, lying in bed and in no acute distress. HEENT--PERRL, EOMI, mucous membranes and oropharynx mildly dry Neck--supple. No JVD. No bruits. Thyroid normal, trachea midline, no adenopathy. Heart--normal S1 and S2. No murmurs, rubs or gallops. Lungs--clear bilaterally, no respiratory distress, no accessory muscle use. Abdomen--normal bowel sounds and soft. Mild epigastric and left sided abdominal pain Extremities--no cyanosis or clubbing. No edema. Dermatologic--normal skin turgor, normal color, no abnormal lymph nodes, no rash. Neurologic--cranial nerves II through XII grossly intact. Rheumatologic--normal range of motion. Psychiatric--normal affect. Results & Data Results & Data ([facility]) Vital Signs (Past 12 Hours) Vital Signs Temp Pulse Resp BP Pulse Ox O2 Del Method 08/27/22 10:52 Room Air 08/27/22 07:42 98.1 F 88 16 127/82 99 Room Air PG Care Time/CCT Total # of Minutes Spent Total Time Spent with Patient: Total time spent is greater than 50% in coordination of care (as documented) at patient's floor/unit and/or counseling patient: Coding Level of Care Code 80114 Subseq Hosp Care Lvl 2 Diagnoses Acute urinary retention R33.8 Hematuria R31.9 Time Spent (min) 35
[2022-08-28] MEDS: ceFAZolin 1000MG 1,000 MG/7.5 ML SYR IV SCH ×3 (02:38→17:46)
[2022-08-28 07:50] LABS: BUN Creatinine Ratio 45.5 (10-20); Calcium 8.5 mg/dl (8.5-10.1); Est GFR (African American) 142.7 ml/min; Est GFR (Non-African American) 123.1 ml/min; Potassium 3.2 mmol/L (3.5-5.1)
--- NOTE | 2022-08-28 12:59 | Hospitalist Progress Note ---
Date of Service August 28, 2022 Assessment & Plan (1) Acute urinary retention: Plan: Patient presented from his [place] resident on account of acute urinary retention He is now s/p cystoscopy, clot evacuation, fulguration and hua placement on 08/24/22 Per Urology, to maintain hua until outpatient follow up Urine clear, no evidence of blood (2) Hematuria: Plan: Resolved Plan d/c back to [place] when accepted, awaiting insurance auhtorization Admission and Anticipated Discharge Date Admission Date: August 24, 2022 Subjective patient seen and examined, hua without blood, no new complaints, awaiting return to his [place] residence Review of Systems Review of Systems: All systems reviewed are negative, apart from the ones contained in the history. Physical Exam Physical Exam: The patient is awake, alert and oriented 3, well developed and well nourished, normocephalic and atraumatic, lying in bed and in no acute distress. HEENT--PERRL, EOMI, mucous membranes and oropharynx mildly dry Neck--supple. No JVD. No bruits. Thyroid normal, trachea midline, no adenopathy. Heart--normal S1 and S2. No murmurs, rubs or gallops. Lungs--clear bilaterally, no respiratory distress, no accessory muscle use. Abdomen--normal bowel sounds and soft. Mild epigastric and left sided abdominal pain Extremities--no cyanosis or clubbing. No edema. Dermatologic--normal skin turgor, normal color, no abnormal lymph nodes, no rash. Neurologic--cranial nerves II through XII grossly intact. Rheumatologic--normal range of motion. Psychiatric--normal affect. Results & Data Results & Data ([facility]) Vital Signs (Past 12 Hours) Vital Signs Temp Pulse Resp BP Pulse Ox O2 Del Method 08/28/22 10:21 Room Air 08/28/22 07:43 97.7 F 76 20 121/69 96 Room Air PG Care Time/CCT Total # of Minutes Spent Total Time Spent with Patient: Total time spent is greater than 50% in coordination of care (as documented) at patient's floor/unit and/or counseling patient: Coding Level of Care Code 37440 Subseq Hosp Care Lvl 2 Diagnoses Acute urinary retention R33.8 Hematuria R31.9 Time Spent (min) 35
[2022-08-29] MEDS: ceFAZolin 1000MG 1,000 MG/7.5 ML SYR IV SCH (02:17)
--- NOTE | 2022-08-29 07:04 | Hospitalist Progress Note ---
Date of Service August 29, 2022 Assessment & Plan (1) Acute urinary retention: Plan: Patient presented from his [place] resident on account of acute urinary retention. He is now s/p cystoscopy, clot evacuation, fulguration and Loza placement on 08/24/22. Per Urology, to maintain Loza until outpatient follow up. Urine clear, no evidence of blood. Given elevated WBC count several days ago, with urinary complaint and Pseudomonas on UCx, will transition Abx to cipro IV q12h, with transition to PO on discharge (total of 7 days of appropriate Abx, completion date 09/04/22). (2) Hematuria: Plan: Resolved (3) CAD in [place] artery: Plan: Continue home aspirin. (4) GERD (gastroesophageal reflux disease): Plan: Continue PPI. (5) Hypertension: Plan: History of, with normal BP 130s systolic. (6) Diabetes mellitus: Plan: A1c 5.9% in July 2022 without DM2 medications, diet controlled. DM2 diet. Plan d/c back to [place] when accepted, awaiting insurance authorization Admission and Anticipated Discharge Date Admission Date: August 24, 2022 Subjective Patient without any acute events overnight. He does not have any complaints today. Review of Systems Review of Systems: All systems reviewed are negative, apart from the ones contained in Subjective Physical Exam Constitutional: WD/WN, vitals as above Respiratory: normal respiratory effort, lungs clear to auscultation Cardiovascular: RRR, no murmur, no edema Gastrointestinal (Abdomen): normal bowel sounds, soft, nontender, no hepatosplenomegaly Skin: no rashes, warm and dry Psychiatric: A+Ox3, euthymic affect Genitourinary: Loza draining clear dark yellow urine Results & Data Results & Data ([facility]) Vital Signs (Past 12 Hours) Vital Signs Temp Pulse Resp BP Pulse Ox Pulse Ox O2 Del Method 08/28/22 23:00 95 08/28/22 22:16 36.7 C 74 18 118/74 95 Room Air 08/28/22 20:00 Room Air O2 Del Method 08/28/22 23:00 Room Air 08/28/22 22:16 08/28/22 20:00 PG Care Time/CCT Total # of Minutes Spent Total Time Spent with Patient: Total time spent is greater than 50% in coordination of care (as documented) at patient's floor/unit and/or counseling patient: Coding Level of Care Code 04982 Subseq Hosp Care Lvl 2 Diagnoses Acute urinary retention R33.8 Hematuria R31.9 CAD in [place] artery I25.10 GERD (gastroesophageal reflux disease) K21.9 Hypertension I10 Diabetes mellitus E11.9
[2022-08-29] MEDS: CIPROFLOXACIN / D5W 400 MG/200 ML BAG IV SCH ×2 (09:57→21:12)
--- NOTE | 2022-08-30 08:41 | Discharge Summary ---
Discharge Summary Date of Service August 30, 2022 Admission HPI Per Admitting Provider Malcolm Marcial is a 77-year-old male with past medical history significant for HTN, HLD, GERD, SIADH, BPH, b/l iliac artery aneurysm, and recent incarcerated inguinal s/p repair on 08/07 complicated by aspiration pneumonia who presents to the ED from his nursing facility for Loza catheter placement. It was noted today that his Loza catheter had no output, so multiple attempts at the facility were made to replace it, however unsuccessful. ED nursing staff also attempted to replace the catheter today, again without any success. Urology was consulted in ED, who successfully placed a 2 20 2F catheter into the bladder, with a small amount of clot drawn back, unable to irrigate. The decision was made to bring the patient to CT to rule out bladder rupture. CT scan reviewed by urology, which showed distended but intact bladder without evidence of large amount of blood clots. Current plan will be to proceed to the OR for cystoscopy to evaluate for remaining blood clot and catheter placement. Patient hospitalized 08/07 for 08/19 due to incarcerated hernia complicated by an aspiration pneumonia and failure to thrive. There is concern for bladder cancer given he had intermittent hematuria without evidence of UTI on imaging. Palliative consult was placed during this hospitalization and the decision was made to focus on comfort care and symptomatic treatment. Upon discharge 08/19, patient was discharged to [facility] with plan to transition to hospice care when Medicaid insurance approved. Admission Exam Per Admitting Provider General: awake, alert, no apparent distress, appears frail Head: Normocephalic, atraumatic ENT: PERRL, EOMI, no pharyngeal exudate, mucous membranes moist Chest: Clear to auscultation, on room air, no adventitious breath sounds Cardiac: Regular rate and rhythm, no murmur, no JVD, normal peripheral pulses, good capillary refill Abdominal: Distended abdomen with pain on light palpation, NABS throughout, no rebound or guarding Extremities: Normal inspection, no peripheral edema or erythema, calfs nontender to palpation Psych: Normal mood and affect Neuro: AAO x 3, strength intact bilaterally and rated 5/5, no motor deficits, speech is clear, no peripheral sensory deficits Skin: no rash or erythema Principal Dx & Hospital Course #1 = Principal Diagnosis (1) Acute urinary retention: Patient presented from his [place] resident on account of acute urinary retention. He is now s/p cystoscopy, clot evacuation, fulguration and Loza placement on 08/24/22. Per Urology, to maintain Loza until outpatient follow up. Urine clear, minimal blood and microtrauma at urethral meatus. Will continue ciprofloxacin PO BID on discharge (total of 7 days of appropriate Abx, completion date 09/04/22). (2) Hematuria: Resolved (3) CAD in [place] artery: Continue home aspirin. (4) GERD (gastroesophageal reflux disease): Continue PPI. (5) Hypertension: History of, with normal BP 130s systolic. (6) Diabetes mellitus: A1c 5.9% in July 2022 without DM2 medications, diet controlled. DM2 diet. Plan d/c back to [place] when accepted, awaiting insurance authorization Did discuss what hospice transition could look like, possible available resources, etc prior to patient's discharge. Discharge Exam Constitutional WD/WN, vitals as above Respiratory normal respiratory effort, lungs clear to auscultation Cardiovascular RRR, no murmur, no edema Gastrointestinal (Abdomen) normal bowel sounds, soft, nontender, no hepatosplenomegaly Skin no rashes, warm and dry Psychiatric alert and oriented to name Updated Medication List Medication Instructions Recorded Confirmed Type tamsulosin 0.4 mg capsule (Flomax) 0.4 mg PO DAILY 07/27/22 08/07/22 History L.acidop,casei,lactis,rham-B.lact,ayah 2 cap PO DAILY #7 caps 08/19/22 Rx 625 mg (10 billion cell) capsule (Advanced Probiotic) acetaminophen 325 mg tablet 325 mg PO Q8H PRN pain #10 tabs 08/19/22 Rx aspirin 81 mg tablet,delayed 81 mg PO QAM #10 tabs 08/19/22 Rx release nitroglycerin 0.4 mg sublingual 0.4 mg sublingual UD PRN chest 08/19/22 Rx tablet (Nitrostat) pain #1 tab nystatin 100,000 unit/mL oral 1 ml PO QID for one week- stop if 08/19/22 Rx suspension oral thrush gone #60 mL pantoprazole 40 mg tablet,delayed 40 mg PO QAM #10 tabs 08/19/22 Rx release sodium chloride 1 gram tablet 1 g PO BID #10 tabs 08/19/22 Rx ciprofloxacin HCl 500 mg tablet 500 mg PO BID 5 days #10 tabs 08/30/22 Rx (Cipro) Hospital Stay Data Consultations 08/24/22 16:10 ED Decision to Admit Stat Procedures Performed Operation Date: 08/24/22 12:15 Actual Procedures p Cystoscopy Clot Evacuation and Fulguration, Catheter Placement(Not Applicable) - Robbie Suero MD Diagnostic Imagining Performed 08/24/22 16:08 CT Abd and Pelvis [CT abd pelvis IV con only] Stat Discharge Instructions Given to Patient (Per Discharging Provider) Acute urinary retention: Patient presented from his [facility] on account of acute urinary retention. He is now s/p cystoscopy, clot evacuation, fulguration and Loza placement on 08/24/22. Per Urology, to maintain Loza until outpatient follow up (call Dr. Robbie Suero's office for follow up). Urine clear, no evidence of blood. Given elevated WBC count with urinary complaint (acute retention) and Pseudomonas on UCx, will continue ciprofloxacin PO 500mg q12h on discharge (total of 7 days of appropriate Abx, completion date 09/03/22). Hematuria: Resolved. Coronary artery disease: Continue home aspirin. Gastroesophageal reflux disease: Continue PPI. Hypertension: History of, with normal BP 130s systolic. Diabetes mellitus: A1c 5.9% in July 2022 without DM2 medications, diet controlled. DM2 diet. Total Time Total Time Spent Total Time Spent (In Minutes): 40 Coding Level of Care Code D/C DAY MANAGEMENT >30 MINS Diagnoses Acute urinary retention R33.8 Hematuria R31.9 CAD in [place] artery I25.10 GERD (gastroesophageal reflux disease) K21.9 Hypertension I10 Diabetes mellitus E11.9
[2022-08-30] MEDS ORDERED: ASPIRIN 81 MG ECTAB PO SCH (09:00)
[2022-08-30] MEDS ORDERED: PANTOprazole 40 MG TAB PO SCH (09:00)
[2022-08-30] MEDS: CIPROFLOXACIN / D5W 400 MG/200 ML BAG IV SCH (09:26)
== END 2022-08-30 14:24 | DRG 696 ==
LOC: ED 13:44 → OR 16:52 → SUATTDRO 18:37 → 3W 18:37
DX: N40.1 Benign prostatic hyperplasia with lower urinary tract symptoms; B96.5 Pseudomonas (aeruginosa) (mallei) (pseudomallei) as the cause of diseases classified elsewhere; F17.210 Nicotine dependence, cigarettes, uncomplicated; R62.7 Adult failure to thrive; R31.0 Gross hematuria; K21.9 Gastro-esophageal reflux disease without esophagitis; R33.8 Other retention of urine; Z79.899 Other long term (current) drug therapy; Z98.890 Other specified postprocedural states; I10 Essential (primary) hypertension; E11.9 Type 2 diabetes mellitus without complications; Z79.82 Long term (current) use of aspirin; I25.10 Atherosclerotic heart disease of native coronary artery without angina pectoris; Z66 Do not resuscitate